=== PATIENT | female | born 1975 | race Caucasian/White ===

== ENCOUNTER 2023-06-28 11:30 | Inpatient (IN) | payer SELFPAY ==
[2023-06-28] VITALS (35 sets, daily range): BP systolic 130–170; BP diastolic 85–120; PULSE 0–132; TEMP 36.7–37.1; O2SAT 94–98; BMI 36.0; BMI 35.9
--- NOTE | 2023-06-28 | CONS_ITS ---
CONSULTATION DATE: 06/28/2023 HISTORY OF PRESENT ILLNESS: Patient is a 48-year-old female with no significant past cardiac history, who presented to [facility] with complaints of productive cough and shortness of breath. Patient states that she has been dealing with an upper respiratory tract infection for approximately five weeks, and although she had begun to improve, she noticed some worsening over the past 24 hours. Patient states that she had been coughing up green sputum and, as of yesterday, her shortness of breath became noticeably worse. She reported some lower extremity edema as well. She denied any anginal chest pain. She denies any orthopnea or paroxysmal nocturnal dyspnea. She does have some positional pain in her back, which is worse when she lays on her right side. Again, patient denies any anginal chest pain. Patient denies any previous cardiac history. She denies any history of hypertension, hyperlipidemia, diabetes, CAD, CVA or VA. She states that prior to the past five weeks, she was fairly active and had no activity limiting symptoms. She denies any significant family history of premature coronary artery disease. Upon admission, patient was noted to have cardiac enlargement on chest x-ray, in addition to mall bilateral pleural effusions. She is being treated for community acquired pneumonia. Cardiology was asked to evaluate patient for presumptive heart failure. CARDIOLOGY REVIEW OF SYSTEMS: Ten point ROS was performed and was negative, unless otherwise specified in HPI. PAST MEDICAL HISTORY: Gestational hypertension. SURGICAL HISTORY: LASIK surgery of both eyes. SOCIAL HISTORY: Patient denies any tobacco abuse. No recreational drug use. No significant alcohol consumption. FAMILY HISTORY: Noncontributory. HOME MEDICATIONS: None. PHYSICAL EXAMINATION: Vital Signs: Blood pressure 143/120, pulse 102, respiratory rate 34, temperature 98.3, O2 sat 95% on room air.\ Constitutional: Well developed, well nourished, no acute distress. HEENT: Normocephalic, atraumatic. Eyes: PERRLA. Extraocular movements intact. Neck: No significant JVD. Cardiovascular: Tachycardic, normal rhythm. No rubs, gallops or murmurs. Lungs: Bibasilar crackles. No respiratory distress. Abdomen: Soft, non- tender, non-distended. Skin: Warm, dry, intact. Extremities: Patient has bilateral lower extremity edema. No cyanosis or clubbing noted. Musculoskeletal: Grossly normal strength in extremities. Neurologic: Alert and oriented x3. No gross focal neurological deficits. Psychiatric: Affect normal. Judgment normal. Mood normal. STUDIES: EKG ? Sinus tachycardia, inferior infarct, age indeterminate, possible left atrial enlargement. ASSESSMENT: 1. Community acquired pneumonia. 2. Sinus tachycardia. 3. Heart failure with unknown ejection fraction. 4. Hypertension. PLAN: 1. Treatment of underlying pneumonia as per primary team. 2. Sinus tachycardia is likely reactive to underlying infectious process. Treatment of underlying infection is recommended. 3. Continue with IV Lasix 40 mg daily. Monitor ins/outs. Standing daily weights. 4. Recommend obtaining echocardiograph to assess LVEF, regional wall motion, valvular function. 5. Would recommend serial troponin x3. 6. Would recommend initiating anti-hypertensive regimen give elevated blood pressure. 7. Further recommendations to follow echocardiogram. 8. Remainder of management as per primary team. Thank you for allowing us to participate in the care of this patient. Please do not hesitate to contact [facility] with any questions/concerns. TOMY
--- NOTE | 2023-06-28 11:56 | XR_ITS ---
The [address] [address] Patient Name: LEANNE GLEASON MRN: [id number] date: 1975 Sex: F Assigned Patient Location: ER Current Patient Location: ER Accession/Order Number: [id number] Exam Date: 06/28/2023 12:19 Report Date: 06/28/2023 12:37 At the request of: SHANTELL ELY Procedure: XR chest 2V EXAM: Chest x-ray HISTORY: . SOB . COMPARISON: None TECHNIQUE: Frontal and lateral chest FINDINGS: Heart is mildly enlarged. There is prominence of the vascularity and interstitial markings. Small bilateral effusions are noted. Bibasilar atelectasis and or infiltrates are noted. No consolidation is noted. XR/XR chest 2V IMPRESSION: 1. Cardiac enlargement. 2. Prominence of the bronchovascular markings. Findings could be due to an interstitial pneumonitis or early failure. 3. Bibasilar atelectasis versus early infiltrates 4. Small bilateral effusions. Electronically authenticated by: FRANK HONG Date: 06/28/2023 12:37
[2023-06-28 12:05] LABS: Basophils Percent Auto 0.4 % (0.2-2.0); Eosinophils Absolute Auto 0.1 10^3/uL (0.0-0.7); Eosinophils Percent Auto 1.5 % (0.9-7.0); Hematocrit 39.1 % (36.0-48.0); Hemoglobin 12.5 g/dL (12.0-16.0); Immature Granulocytes Abs Auto 0.03 10^3/uL (0.00-0.03); Immature Granulocytes Pct Auto 0.3 % (0.0-0.5); Lymphocytes Percent Auto 21.2 % (20.5-60.0); Mean Corpuscular Hemoglobin 28.3 pg (26.7-34.0); Mean Corpuscular Volume 88.5 fL (81.0-99.0); Mean Platelet Volume 11.2 fL (9.5-13.5); Monocytes Absolute Auto 0.8 10^3/uL (0.3-0.8); Monocytes Percent Auto 8.2 % (1.7-12.0); Neutrophils Absolute Auto 6.4 10^3/uL (1.4-6.5); Neutrophils Percent Auto 68.4 % (43.0-75.0); Platelet Count 271 10^3/uL (150-450); Red Blood Count 4.42 10^6/uL (4.20-5.40); Red Cell Distribution Width 14.1 % (11.0-15.0); White Blood Count 9.4 10^3/uL (4.0-11.0)
[2023-06-28 12:25] LABS: Influenza Virus A Antigen Negative; Influenza Virus B Antigen Negative
[2023-06-28 12:26] LABS: Internal Control Within Normal Limits; SARS-CoV-2 Ag NEGATIVE (NEGATIVE)
[2023-06-28 12:27] LABS: Alanine Aminotransferase 94 U/L (14-59); Albumin Globulin Ratio 1.1; Albumin Level 3.4 g/dL (3.4-5.0); Alkaline Phosphatase 82 U/L (46-116); Anion Gap 12.8; Aspartate Amino Transferase 46 U/L (15-37); BUN Creatinine Ratio 12.5; Bilirubin Total 0.5 mg/dL (0.2-1.0); Calcium 9.3 mg/dL (8.5-10.1); Chloride 103 mmol/L (98-107); Estimated GFR (African America >60 (>=60); Estimated GFR (Non-African Ame >60 (>=60); Globulin 3.2 g/dL; Glucose 107 mg/dL (74-106); Potassium 3.8 mmol/L (3.5-5.1); Sodium 137 mmol/L (136-145); Total Protein 6.6 g/dL (6.4-8.2); Troponin I High Sensitivity <4.0 pg/mL (4.0-51.3)
--- NOTE | 2023-06-28 12:31 | ED.SOB1 ---
HPI - SOB/Dyspnea General Chief Complaint: Shortness of Breath/Dyspnea Stated Complaint: SOB, COUGH Time Seen by Provider: 06/28/23 11:56 Source: patient Mode of arrival: walk-in Limitations: no limitations History of Present Illness HPI Narrative: Patient presents ED complaining of cough and shortness of breath. She said she has had a cough for about 5 weeks. She said it was kind of getting better recently and then the past few days has gotten a lot worse. She was originally coughing up green sputum which kind of got better and now it is worse and green again. She did not see her primary doctor during this time because she thought it was just a cough and it was may be getting better. Now she complains of some pain with breathing and pain with laying back specifically in the right lung area. She is tachycardic upon arrival not hypoxic and in no acute respiratory distress but she is speaking in shorter sentences and she said she gets winded easily. Denies any leg pain or swelling. No nausea or vomiting. She denies chest pain Other than the pain in the right side.No sore throat no ear pain. Related Data Home oxygen amount: none Allergies Allergy/AdvReac Type Severity Reaction Status Date / Time No Known Drug Allergies Allergy Verified 06/28/23 11:42 Review of Systems ROS Status of ROS 10 or more systems reviewed and unremarkable except as noted in history and below Exam Narrative Exam Narrative: Time Seen: [] Vital Signs: [Per nurse's notes.] General: [Alert] Tachycardia, mild distress Skin: [Warm, dry, no rash.] Head: [Normocephalic, atraumatic.] Neck: [Supple, trachea midline.] Eye: [Pupils are equal, round and reactive to light, extraocular movements are intact, normal conjunctiva.] Ears, nose, mouth and throat: oral mucosa moist. Cardiovascular: [Tachycardia, no murmur.] Respiratory: [Diminished breath sounds right lung respirations are non-labored, breath sounds are equal.] Chest wall: [No tenderness, no deformity.] Gastrointestinal: [Soft, nontender, non distended, normal bowel sounds.] MSK: 5 out of 5 muscle strength x 4 extremities no calf pain or edema Lymphatics: [No lymphadenopathy.] Psychiatric: [Cooperative, appropriate mood & affect.] Neurological: [Alert and oriented to person, place, time, and situation, no focal neurological deficit observed.] Constitutional Vital Signs, click to edit/add: Last Vital Signs Temp 98.1 F 06/28/23 11:37 Pulse 107 H 06/28/23 11:37 Resp 20 06/28/23 11:37 BP 145/90 H 06/28/23 11:37 Pulse Ox 98 06/28/23 11:37 O2 Del Method Room Air 06/28/23 11:37 Course Vital Signs Vital signs: Vital Signs Temperature 98.1 F 06/28/23 11:37 Pulse Rate 107 H 06/28/23 11:37 Respiratory Rate 20 06/28/23 11:37 Blood Pressure 145/90 H 06/28/23 11:37 Pulse Oximetry 98 06/28/23 11:37 Oxygen Delivery Method Room Air 06/28/23 11:37 Temperature 98.1 F 06/28/23 11:37 Pulse Rate 107 H 06/28/23 11:37 Respiratory Rate 20 06/28/23 11:37 Blood Pressure 145/90 H 06/28/23 11:37 Pulse Oximetry 98 06/28/23 11:37 Oxygen Delivery Method Room Air 06/28/23 11:37 MDM - SOB/Dyspnea MDM Narrative Medical decision making narrative: Patient is labs showed an elevated D-dimer. I ordered a CT angio which shows pneumonia versus heart failure. Patient's BNP is elevated. She was given IV antibiotics here for potential pneumonia she was also given IV Lasix here. I called and spoke to Dr. Dunham who will admit the patient for diuresis and cardiac echo. Also cardiology evaluation as needed. Patient is comfortable with care plan for admission. She is stable in ED but would benefit from inpatient stepdown admission. Differential Diagnosis Differential diagnosis: Likely congestive heart failure and community acquired pneumonia Medical Records Attestation: I reviewed the patient's medical records. Lab Data Attestation: I reviewed the patient's lab results. Labs: Lab Results 06/28/23 06/28/23 06/28/23 Range/Units 11:57 12:00 13:16 WBC 9.4 (4.0-11.0) 10^3/uL RBC 4.42 (4.20-5.40) 10^6/uL Hgb 12.5 (12.0-16.0) g/dL Hct 39.1 (36.0-48.0) % MCV 88.5 (81.0-99.0) fL MCH 28.3 (26.7-34.0) pg MCHC 32.0 (29.9-35.2) g/dL RDW 14.1 (11.0-15.0) % Plt Count 271 (150-450) 10^3/uL MPV 11.2 (9.5-13.5) fL Neut % (Auto) 68.4 (43.0-75.0) % Lymph % (Auto) 21.2 (20.5-60.0) % [place] % (Auto) 8.2 (1.7-12.0) % Eos % (Auto) 1.5 (0.9-7.0) % Baso % (Auto) 0.4 (0.2-2.0) % Neut # (Auto) 6.4 (1.4-6.5) 10^3/uL Lymph # (Auto) 2.0 (1.2-3.8) 10^3/uL [place] # (Auto) 0.8 (0.3-0.8) 10^3/uL Eos # (Auto) 0.1 (0.0-0.7) 10^3/uL Baso # (Auto) 0.0 (0.0-0.1) 10^3/uL Abs Immat Gran (auto) 0.03 (0.00-0.03) 10^3/uL Imm/Tot Granulo (auto) 0.3 (0.0-0.5) % D-Dimer 0.65 H* (<=0.59) mg/L FEU Sodium 137 (136-145) mmol/L Potassium 3.8 (3.5-5.1) mmol/L Chloride 103 (98-107) mmol/L Carbon Dioxide 25.0 (21.0-32.0) mmol/L Anion Gap 12.8 BUN 11.0 (7.0-18.0) mg/dL Creatinine 0.88 (0.55-1.02) mg/dL Est GFR ( Amer) >60 (>=60) Est GFR (Non-Af Amer) >60 (>=60) BUN/Creatinine Ratio 12.5 Glucose 107 H (74-106) mg/dL Lactate 0.7 (0.4-2.0) mmol/L Calcium 9.3 (8.5-10.1) mg/dL Total Bilirubin 0.5 (0.2-1.0) mg/dL AST 46 H (15-37) U/L ALT 94 H (14-59) U/L Alkaline Phosphatase 82 (46-116) U/L Troponin I High Sens <4.0 L (4.0-51.3) pg/mL NT-Pro-B Natriuret Pep 2904.0 H* (<=900.0) pg/mL Total Protein 6.6 (6.4-8.2) g/dL Albumin 3.4 (3.4-5.0) g/dL Globulin 3.2 g/dL Albumin/Globulin Ratio 1.1 Influenza Type A Ag Negative Influenza Type B Ag Negative SARS-CoV-2 Ag (CV2AG) Negative (NEGATIVE) Imaging Data Chest x-ray: Radiologist's impression: ITS Impressions Chest X-Ray 06/28/23 11:56 IMPRESSION: 1. Cardiac enlargement. 2. Prominence of the bronchovascular markings. Findings could be due to an interstitial pneumonitis or early failure. 3. Bibasilar atelectasis versus early infiltrates 4. Small bilateral effusions. Electronically authenticated by: FRANK HONG Date: 06/28/2023 12:37 Chest CTA 06/28/23 12:58 IMPRESSION: No central pulmonary thromboembolic disease Groundglass attenuation the lungs and pleural effusions with left heart enlargement. Consider congestive heart failure Electronically authenticated by: FRANK MAIN Date: 06/28/2023 14:01 ECG Data Attestation: I personally reviewed and interpreted this ECG as follows: Interpretation: EKG INTERPRETATION Time: []1147 Rate: []109 Rhythm: _ []Sinus tachycardia ST segments: _ [] T waves: _ [] Ectopy: _ [] P wave/NH interval: _ [] QRS interval: _ [] QT interval: _ [] Comparison: _ [] Comparison EKG date: [] Performed by: [self]Left bundle branch block Critical Care Time Critical Care Time Critical Care Time: Yes Total Critical Care Time: 85 Attestation: Cardiac arrhythmia, acute congestive heart failure, pulmonary and cardiac support Discharge Plan Discharge Chief Complaint: Shortness of Breath/Dyspnea Clinical Impression: Congestive heart failure, Community acquired pneumonia Patient Disposition: Admitted As Inpatient Time of Disposition Decision: 14:56 Condition: Fair Print Language: [place] Referrals: Jailyn Quiroz MD [Primary Care Provider] - 1 week
--- NOTE | 2023-06-28 12:58 | CT_ITS ---
[address] [address] Patient Name: LEANNE GLEASON MRN: [id number] date: 1975 Sex: F Assigned Patient Location: ER Current Patient Location: ER Accession/Order Number: [id number] Exam Date: 06/28/2023 13:36 Report Date: 06/28/2023 14:01 At the request of: SHANTELL ELY Procedure: CT angio chest EXAMINATION: CT angio chest HISTORY: elevated dimer COMPARISON: No relevant comparison available. TECHNIQUE: Multi-planar CT images were created with IV contrast. Axial, Coronal, and Sagittal images. Dose reduction techniques were achieved by using automated exposure control and/or adjustment of mA and/or kV according to patient size and/or use of iterative reconstruction technique. FINDINGS: LUNGS: Mild to moderate groundglass attenuation scattered throughout the lungs. Few focal areas of consolidation are noted the largest in the right lower lobe measures 2.5 cm, axial image 73 PLEURA: 6.5 cm right and 1.1 cm left pleural effusions VASCULATURE: Normal postcontrast opacification of the central pulmonary arterial tree with no filling defect to suggest a pulmonary embolus UBALDO: No mass or adenopathy. MEDIASTINUM: No mass or adenopathy. CARDIAC: Left heart enlargement. No pericardial effusion. No significant coronary atherosclerosis AORTA: No aneurysm or dissection. CHEST WALL: No mass or axillary adenopathy. BONES: No bone lesion or fracture. LIMITED ABDOMEN: No suspicious findings. Limited images of the upper abdomen. OTHER: Negative. CT/CT angio chest IMPRESSION: No central pulmonary thromboembolic disease Groundglass attenuation the lungs and pleural effusions with left heart enlargement. Consider congestive heart failure Electronically authenticated by: FRANK MAIN Date: 06/28/2023 14:01
[2023-06-28 12:59] LABS: D Dimer 0.65 mg/L FEU (<=0.59)
[2023-06-28] MEDS: 0.9 % SODIUM CHLORIDE 1,000 ML 1000 ML IV (13:08)
[2023-06-28] MEDS: CEFTRIAXONE 1,000 MG in 0.9 % SODIUM CHLORIDE 50 ML 100 MG IV (13:50)
[2023-06-28 14:17] LABS: Lactate/Lactic Acid 0.7 mmol/L (0.4-2.0)
[2023-06-28] MEDS: AZITHROMYCIN 500 MG in 0.9 % SODIUM CHLORIDE 250 ML 250 MG IV (14:19)
--- NOTE | 2023-06-28 15:21 | CA_ITS ---
Patient Name: LEANNE GLEASON MR#: [id number] : 1975 Exam Date: 06/29/2023 Ordering Doctor: MAGALY PRUITT ECHOCARDIOGRAM REPORT PROCEDURE: CA ECHO DOPPLER COMPLETE INDICATIONS: SOB/new onset CHF, elevated BNP COMPARISON: None. DESCRIPTION: COMPLETE ECHOCARDIOGRAM Real-time transthoracic echocardiography with 2D, M-mode, spectral and color flow Doppler performed. QUALITY: Technical quality was good. 63 , 203#, BSA 1.95 m2, BP 136/88 LEFT VENTRICLE: Mild dilatation. Normal left ventricular wall thickness. Calculated left ventricular ejection fraction is 26% LV EF: Global left ventricular systolic function is severely reduced; visually estimated ejection fraction is 20 to 25%. Global hypokinesis. DIASTOLIC: Grade II diastolic dysfunction. ATRIAL SEPTUM: Inadequately seen. LEFT ATRIUM: Severe dilatation. The interatrial septum bows to the right suggesting elevated left atrial filling pressures. RIGHT ATRIUM: Normal chamber size. RIGHT VENTRICLE: Normal chamber size. Normal right ventricular systolic function. TRICUSPID VALVE: Normal mobility and thickness. Mild regurgitation. Doppler studies reveal mildly (35-45) elevated right sided pressures. RVSP 40 mmHg MITRAL VALVE: Normal mobility and thickness. No evidence of mitral valve stenosis. Mild mitral annular calcification. Moderate to severe mitral regurgitation. AORTIC VALVE: Normal trileaflet appearance. No visible sclerosis. Normal leaflet mobility. No evidence of aortic valve stenosis. No aortic regurgitation. AORTIC ROOT: Normal diameter and appearance. Ascending aorta is normal in size. PULMONIC VALVE: Normal thickness and mobility. No stenosis. Trivial regurgitation. The pulmonary artery appears dilated. PERICARDIUM: No evidence of pericardial effusion. IVC: Collapses with inspirations. IVC is normal in size. CONCLUSION 1. Global left ventricular systolic function is severely reduced; visually estimated ejection fraction is 20 to 25% 2. Normal right ventricular size and systolic function 3. The left atrium is severely dilated 4. Grade 2 diastolic dysfunction 5. Mild tricuspid regurgitation; mildly elevated right ventricular systolic pressure 6. Moderate to severe mitral regurgitation 7. The pulmonary artery appears dilated Adult Echocardiography Procedure Report Left Ventricle LVEDD (3.7 - 5.6 cm): 5.06 cm LVESD (2.2 - 4.0 cm): 4.82 cm LVIVS thickness (0.6 - 1.2 cm): 0.92 cm LVPW thickness (0.5 - 1.0 cm): 1.05 cm e': 0.06 m/s E - e': 15.48 LVOT Max Gradient: 3.00 mm[Hg] LVOT Area (cm2): 0.87 m/s Peak Velocity (LVOT): 0.87 m/s Mean Velocity (LVOT): 0.62 m/s LVOT Diameter 2.00 cm Left Atrium LA Volume Index (2D A2C): 53.64 ml/m2 Left Atrium Systolic Dimension: 3.59 cm Mitral Valve MV E to A Ratio: 1.12 Mitral Valve A-Wave Peak Velocity: 0.85 m/s Mitral Valve E-Wave Peak Velocity: 0.95 m/s Right Ventricle Aorta AO Root Diam: 2.93 cm Ascending Ao Diam: 3.36 cm Aortic Valve AoV Area (Peak Agustín): 1.77 cm2, 1.83 cm2 AoV Area (VTI): 1.74 cm2, 1.74 cm2 Peak Velocity(Antegrade Flow): 1.49 m/s, 1.54 m/s Peak Gradient(Antegrade Flow): 8.93 mm[Hg], 9.53 mm[Hg] Mean Velocity(Antegrade Flow): 1.10 m/s, 1.15 m/s Mean Gradient(Antegrade Flow): 5.33 mm[Hg], 5.81 mm[Hg] Velocity Time Integral: 24.67 cm, 22.89 cm Tricuspid Valve Peak Velocity (Regurgitant Flow): 3.02 m/s Pulmonic Valve Mean Gradient: 1.25 mm[Hg], 1.06 mm[Hg], 1.93 mm[Hg] Mean Velocity: 0.52 m/s, 0.48 m/s, 0.65 m/s Peak Gradient: 2.38 mm[Hg], 1.71 mm[Hg], 3.44 mm[Hg] Right Atrium Right Atrium Systolic Pressure: 46.57 ml, 46.57 ml Dictated by: Garima Payne M.D. on 06/29/2023 at 10:56 Approved by: Garima Payne M.D. on 06/29/2023 at 11:02
--- NOTE | 2023-06-28 15:25 | ECG_ITS ---
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
[2023-06-28] MEDS: FUROSEMIDE 40 MG/4 ML VIAL IVP ×2 (15:43→20:55)
[2023-06-28 16:29] LABS: C Reactive Protein <0.50 mg/dL (<=0.50)
[2023-06-28 16:38] LABS: Troponin I High Sensitivity 4.9 pg/mL (4.0-51.3)
[2023-06-28 17:05] LABS: Erythrocyte Sedimentation Rate 18 mm/hr (<=20)
--- NOTE | 2023-06-28 17:36 | P.HP_ITS ---
<Statement entered by Tenzin Dunham MD - 06/30/23 06:49> This documentation has been reviewed and approved. Patient seen and evaluated in the intensive care unit, agree with input and findings provided by nurse practitioners H&P. Additional findings: Elevated liver function test-possibly related to passive congestion from the acute combined heart failure. Check an echocardiogram HPI H&P: HPI History of Present Illness Chief complaint: SOB, COUGH, CHF, Community Acquired Pneumonia Narrative: 06/28/23 6157 This is a 48-year-old female patient with benign past medical history except for gestational hypertension that has resolved, who presented to the ED today complaining of severe shortness of breath and cough. The patient reports onset of a cough about 5 weeks ago productive of green sputum. She denies any other URI symptoms and denies fever. She has been mildly short of breath for the last 4 weeks but became abruptly more short of breath with minimal activity starting last night. She also notes her shortness of breath is worse when lying down and that she is experiencing right lower lobe pain with coughing. She has noticed decreased appetite but had no fevers throughout. She presented to the ED for further evaluation. The patient was mildly hypertensive (145/90) and tachycardic (107) on arrival to the ED. Her labs including cardiac enzymes were mostly unremarkable except for an elevated D-dimer (0.65) and BNP (2904). A chest x-ray revealed cardiac enlargement, small bilateral pleural effusions and prominence of the bronchovascular markings. A CTA of the chest was ordered and PE was ruled out, but groundglass attenuation was noted and left cardiac enlargement consistent with CHF. The patient was treated with IVP Lasix and admitted to the ICU stepdown unit for new onset CHF. At the time of my exam the patient is resting in bed in the ICU. She is short of breath with minimal activity such as walking to the bathroom and prolonged conversation. She denies any cardiac history of any kind and notes her gestational hypertension had completely resolved after the of her children. She denies chest pain other than right lower lobe pleuritic pain with coughing. We will obtain an EKG and serial cardiac enzymes to continue to monitor her cardiac function as well as a 2D Echo. We will also obtain a CRP and ESR to assess for possible myocarditis and a TSH. Cardiology has been consulted for new onset CHF of unclear etiology in a relatively young and healthy patient. Opioid HPI Opioid Management Most Recent Opioid Data: Last Pain Assessment 06/28/23 19:00 Last ORT Total Score 0 06/28/23 16:13 Last ORT Risk Category Low Risk 06/28/23 16:13 Review of Systems ROS Status of ROS 10 or more systems reviewed and unremark able except as noted in history and below PFSH PFS Medical History (Updated 06/28/23 @ 17:49 by Irma Patel NP) Gestational hypertension ?O13.9 - Gestational [-induced] hypertension without significant proteinuria, unspecified trimester (ICD-10) FH: cholecystectomy ?Z83.79 - Family history of other diseases of the digestive system (ICD-10) Post hysterectomy menopause ?E89.40 - Asymptomatic postprocedural ovarian failure (ICD-10) ?Z90.710 - Acquired absence of both cervix and uterus (ICD-10) Complication of section wound ?O90.9 - Complication of the puerperium, unspecified (ICD-10) Plantar fasciitis ?M72.2 - Plantar fascial fibromatosis (ICD-10) Surgical History (Updated 06/28/23 @ 16:43 by Dorothy Watts) Status post LASIK surgery of both eyes ?Z98.890 - Other specified postprocedural states (ICD-10) Social History (Updated 06/28/23 @ 16:44 by Dorothy Watts) Smoking status: Never smoker Non-prescribed substance use: denies use Previous occupational history: day care provider Known occupational exposures/hazards: No Meds Home Medications and Allergies Home Medications ?Medication ?Instructions ?Recorded ?Confirmed ?Type No Known Home Medications 06/28/23 06/28/23 History Allergies Allergy/AdvReac Type Severity Reaction Status Date / Time No Known Drug Allergies Allergy Verified 06/28/23 11:42 Exam Constitutional Vital Signs, click to edit/add: Last Vital Signs Temp 98.3 F 06/28/23 16:34 Pulse 107 H 06/28/23 16:13 Resp 34 H 06/28/23 15:48 BP 143/120 H 06/28/23 16:34 Pulse Ox 95 06/28/23 16:34 O2 Del Method Room Air 06/28/23 16:13 Common normals: no apparent distress, oriented x3, alert and well nourished General appearance: cooperative Orientation/consciousness: Yes awake HENMT Common normals: normocephalic, head/scalp atraumatic, hearing grossly normal bilaterally, external nose normal and moist oral mucous membranes Eye Common normals: PERRL, EOMs intact bilaterally, conjunctivae normal and no scleral icterus Alignment: alignment normal Eyelid: eyelids normal Neck & C-Spine Common normals: full ROM, supple and no JVD Chest Common normals: inspection of chest normal Chest: symmetrical chest wall rise Respiratory Common normals: normal respiratory effort, no retractions and no use of accessory muscles Effort & inspection: able to speak in complete sentences Auscultation: rales (BLL, L > R) Cardio Common normals: no JVD, regular rate, regular rhythm, S1 normal heart sound, S2 normal heart sound, no gallops, no clicks, no rub and peripheral pulses 2+ throughout Heart sounds: murmur (HSM 2/6) GI Common normals: Normal to inspection, nondistended, normoactive bowel sounds present, soft to palpation, non-tender, no hepatosplenomegaly, no masses and no bruits Bladder/kidney exam: bladder normal to palpation Back & Pelvis Common normals: thoracic and lumbar spine normal to inspection Extremity Common normals: normal capillary refill General: normal exam except as noted and edema (Tr BLE, knees to insteps); no clubbing and no cyanosis Neuro [place] Coma Scale: GCS not evaluated Common normals: CN's II-XII intact bilaterally, moves all extremities, no focal motor deficits and no sensory deficits noted Speech: speech normal Motor exam: strength 5/5 throughout Psych Common normals: mental status grossly normal, thought process normal, affect normal and activity/motor behavior normal Results Labs Labs: Short CBC 06/28/23 Range/Units 11:57 WBC 9.4 (4.0-11.0) 10^3/uL Hgb 12.5 (12.0-16.0) g/dL Hct 39.1 (36.0-48.0) % Plt Count 271 (150-450) 10^3/uL BMP 06/28/23 11:57 Sodium 137 Potassium 3.8 Chloride 103 Carbon Dioxide 25.0 BUN 11.0 Creatinine 0.88 Glucose 107 H Calcium 9.3 Liver Function 06/28/23 Range/Units 11:57 Total Bilirubin 0.5 (0.2-1.0) mg/dL AST 46 H (15-37) U/L ALT 94 H (14-59) U/L Alkaline Phosphatase 82 (46-116) U/L Albumin 3.4 (3.4-5.0) g/dL Pulse Oximetry Attestation: I have reviewed the pertinent pulse oximetry results. Imaging Chest x-ray: Attestation: I have reviewed the pertinent imaging results. Radiologist's impression: IMPRESSION: 1. Cardiac enlargement. 2. Prominence of the bronchovascular markings. Findings could be due to an interstitial pneumonitis or early failure. 3. Bibasilar atelectasis versus early infiltrates 4. Small bilateral effusions. CT scan - chest: Attestation: I have reviewed the pertinent imaging results. Radiologist's impression: IMPRESSION: No central pulmonary thromboembolic disease Groundglass attenuation the lungs and pleural effusions with left heart enlargement. Consider congestive heart failure Assessment and Plan Assessment and Plan (1) Congestive heart failure: Assessment and Plan: Acute * Adm inpatient * New onset CHF of unclear etiology * No previous cardiac history or medications * EKG now - ST w/ BBB, anteroseptal PR of indeterminate age, possible L atrial enlargement * CXR and CTA both confirm enlarged L heart, small bilat pleural effusions and ground glass attenuation suggestive of CHF * Elevated BNP (2904) in ED * Lasix 40 mg IVP BID * Strict I&O, daily weights * 2D Echo - unable to obtain until morning * Cardiology consult - we appreciate their assistance w/ this pt's care * Add on ESR/CRP to evaluate for possible myocarditis * Daily BNP (2) Sinus tachycardia: Assessment and Plan: Acute * HR 105- 135 since arrival * No electrolyte disturbances as etiology * PE r/o w/ neg CTA chest * Anxiety may be contributing to tachy rhythm * Start low dose metoprolol tartrate BID - avoid CCB in pt w/ CHF * PRN IVP Lopressor for HR sustained above 120 despite PO metoprolol * Tele monitoring
--- NOTE | 2023-06-28 19:15 | ECG_ITS ---
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
[2023-06-28 19:26] LABS: Free T3 2.42 pg/mL (2.18-3.98); Magnesium 2.1 mg/dL (1.8-2.4); Thyroid Stimulating Hormone 11.277 uIU/mL (0.358-3.740)
[2023-06-28 19:47] LABS: Troponin I High Sensitivity <4.0 pg/mL (4.0-51.3)
[2023-06-28] MEDS: ENOXAPARIN SODIUM 40 MG/0.4 ML SYRINGE SUBQ (20:55)
[2023-06-28] MEDS: METOPROLOL TARTRATE 25 MG TABLET 12.5 MG PO (20:56)
[2023-06-29] VITALS (74 sets, daily range): BP systolic 129–159; BP diastolic 86–109; PULSE 73–107; TEMP 36.6–36.9; O2SAT 89–97
[2023-06-29 04:53] LABS: Basophils Percent Auto 0.4 % (0.2-2.0); Eosinophils Absolute Auto 0.1 10^3/uL (0.0-0.7); Hematocrit 40.8 % (36.0-48.0); Hemoglobin 12.8 g/dL (12.0-16.0); Immature Granulocytes Abs Auto 0.03 10^3/uL (0.00-0.03); Immature Granulocytes Pct Auto 0.3 % (0.0-0.5); Lymphocytes Percent Auto 20.5 % (20.5-60.0); Mean Corpuscular HGB Conc 31.4 g/dL (29.9-35.2); Mean Corpuscular Hemoglobin 27.6 pg (26.7-34.0); Mean Corpuscular Volume 87.9 fL (81.0-99.0); Mean Platelet Volume 11.8 fL (9.5-13.5); Monocytes Absolute Auto 0.9 10^3/uL (0.3-0.8); Monocytes Percent Auto 9.1 % (1.7-12.0); Neutrophils Absolute Auto 6.7 10^3/uL (1.4-6.5); Neutrophils Percent Auto 68.7 % (43.0-75.0); Platelet Count 267 10^3/uL (150-450); Red Blood Count 4.64 10^6/uL (4.20-5.40); Red Cell Distribution Width 14.5 % (11.0-15.0); White Blood Count 9.7 10^3/uL (4.0-11.0)
[2023-06-29 05:14] LABS: Alanine Aminotransferase 87 U/L (14-59); Albumin Globulin Ratio 1.1; Albumin Level 3.4 g/dL (3.4-5.0); Alkaline Phosphatase 80 U/L (46-116); Anion Gap 13.3; Aspartate Amino Transferase 40 U/L (15-37); Bilirubin Total 0.6 mg/dL (0.2-1.0); Calcium 9.4 mg/dL (8.5-10.1); Carbon Dioxide 26.4 mmol/L (21.0-32.0); Chloride 101 mmol/L (98-107); Estimated GFR (African America >60 (>=60); Estimated GFR (Non-African Ame >60 (>=60); Globulin 3.2 g/dL; Glucose 106 mg/dL (74-106); Potassium 3.7 mmol/L (3.5-5.1); Sodium 137 mmol/L (136-145); Total Protein 6.6 g/dL (6.4-8.2)
[2023-06-29] MEDS: FUROSEMIDE 40 MG/4 ML VIAL IVP (08:16)
[2023-06-29] MEDS: METOPROLOL TARTRATE 25 MG TABLET 12.5 MG PO (08:16)
--- NOTE | 2023-06-29 08:22 | CM.NOTE ---
Rounds made with Dr. Dunham, discussed with pt about cardiac echo today. If cardiac echo normal may discharge to home this afternoon.
--- NOTE | 2023-06-29 08:23 | P.PN_ITS ---
Progress Note: Subjective Subjective Interval history: Patient feels better with her breathing today. Still somewhat short of breath and has also not been in and ambulating yet this morning respiratory rate on vital signs is improved though Exam Constitutional Vital Signs, click to edit/add: Last Vital Signs Temp 98 F 06/29/23 07:53 Pulse 96 H 06/29/23 07:53 Resp 19 06/29/23 07:50 BP 154/105 H 06/29/23 07:49 Pulse Ox 97 06/29/23 07:48 O2 Del Method Room Air 06/29/23 07:53 Common normals: no apparent distress Chest Common normals: inspection of chest normal Respiratory Common normals: normal respiratory effort and no retractions Auscultation: rales (Bases but improved) Cardio Common normals: regular rate Common normals: no CVA tenderness Extremity Common normals: normal to inspection Progress Note: Objective Labs Labs: Short CBC 06/28/23 06/29/23 Range/Units 11:57 04:04 WBC 9.4 9.7 (4.0-11.0) 10^3/uL Hgb 12.5 12.8 (12.0-16.0) g/dL Hct 39.1 40.8 (36.0-48.0) % Plt Count 271 267 (150-450) 10^3/uL BMP 06/28/23 06/29/23 11:57 04:04 Sodium 137 137 Potassium 3.8 3.7 Chloride 103 101 Carbon Dioxide 25.0 26.4 BUN 11.0 10.0 Creatinine 0.88 0.77 Glucose 107 H 106 Calcium 9.3 9.4 Liver Function 06/28/23 06/29/23 Range/Units 11:57 04:04 Total Bilirubin 0.5 0.6 (0.2-1.0) mg/dL AST 46 H 40 H (15-37) U/L ALT 94 H 87 H (14-59) U/L Alkaline Phosphatase 82 80 (46-116) U/L Albumin 3.4 3.4 (3.4-5.0) g/dL Progress Note: A&P Assessment and Plan (1) Congestive heart failure: (2) Sinus tachycardia: Plan (1) Congestive heart failure: Assessment and Plan: Cardiogram is still pending. Try to get the calculated ejection fraction as early as possible today. Her BNP is higher. But she is going to doses of the Lasix so far with good diuresis of 4 L Notes with him I just was not sure with the protest if we are staying away Tachycardia Acute-so far better this morning. Hypothyroidism-given IV dose last night, will follow as an outpatient. Possibly related to the heart failure Elevated liver function test-improved, would follow as an outpatient Admission status: Patient with new onset of acute combined congestive heart failure. Place patient inpatient status in the intensive care unit. Likely 2 to 3-day hospital stay. Inpatient status.
--- NOTE | 2023-06-29 09:13 | CM.NOTE ---
Verified self pay status. Referral to [employer].
--- NOTE | 2023-06-29 17:31 | PC.NURSE ---
bedside report given to [facility]. pt taken to exit via stretcher, family at bedside with belongings. report called to adeola at [facility] [phone].
--- NOTE | 2023-07-07 07:49 | P.DS_ITS ---
DS: Providers Provider Date of admission: 06/28/23 15:57 Primary care physician: Jailyn Quiroz MD Consults: 06/28/23 15:21 Consult to Cardiology Routine Reason for consultation: New onset CHF Has provider been notified: No DS: Diagnosis Discharge Diagnosis (1) Congestive heart failure: (2) Sinus tachycardia: Plan Congestive heart failure: With reduced ejection fraction Tachycardia: Stable at the time of discharge Hypothyroidism-follow as an outpatient Elevated liver function test-improving at the time of discharge Community-acquired pneumonia-continue with current treatment plan at outside facility. Admission status: Patient with new onset of acute combined congestive heart failure. Place patient inpatient status in the intensive care unit. Likely 2 to 3-day hospital stay. Inpatient status. ? DS: Summary Hospital Course Hospital Course: Patient presented to the emergency room with increasing shortness of breath. Found to have acute combined congestive heart failure. Diuresed with Lasix. Echocardiogram the following morning did show a reduced ejection fraction and her BNP was higher. Arrangements were made for transportation and transfer to [facility] for cardiac catheterization. Patient was improving and stable at the time of discharge. Follow-up with your PCP at discharge from outside facility. Medications see list, likely ingested at tertiary care facility. Time Spent with Patient Time attestation: Total time spent providing and/or coordinating discharge services: Time spent: greater than 30 minutes Exam Constitutional Vital Signs, click to edit/add: Last Vital Signs Temp 98 F 06/29/23 07:53 Pulse 93 H 06/29/23 17:10 Resp 14 06/29/23 17:10 BP 147/95 H 06/29/23 16:09 Pulse Ox 97 06/29/23 16:09 O2 Del Method Room Air 06/29/23 16:00 Common normals: no apparent distress Chest Common normals: inspection of chest normal Respiratory Common normals: normal respiratory effort and no retractions Auscultation: rales (Bases but improved) Cardio Common normals: regular rate Common normals: no CVA tenderness Extremity Common normals: normal to inspection Discharge Plan Discharge Disposition: [facility] Condition: Fair Discharge Date/Time: 06/29/23 17:26 Discharge Location: The [facility]
== END 2023-06-29 17:26 | disposition short-term general hospital (02) | DRG 291 ==
LOC: ER 14:58 → ICU 16:02
PROVIDERS: Admitting Provider Nurse Practitioner; Emergency Provider Emergency Medicine; PCP Family Medicine; Visit Provider Family Medicine
DX: I11.0 Hypertensive heart disease with heart failure (principal); I50.41 Acute combined systolic (congestive) and diastolic (congestive) heart failure; J18.9 Pneumonia, unspecified organism; R00.0 Tachycardia, unspecified; Z90.710 Acquired absence of both cervix and uterus; E89.40 Asymptomatic postprocedural ovarian failure; R79.89 Other specified abnormal findings of blood chemistry; E03.9 Hypothyroidism, unspecified
CPT/HCPCS: 36415; 71046; 71275; 80053; 83605; 83735; 83880; 84436; 84443; 84481; 84484; 85025; 85378; 85652; 86140; 87040; 87804; 87811; 93005; 93306; 93356; 96365; 96367; 96372; 96375; 96376; 99285; J0456; Q9967

== ENCOUNTER 2023-07-25 14:16 | Outpatient (OUT) | payer SELFPAY ==
--- NOTE | 2023-07-25 14:23 | US_ITS ---
The [address] [address] Patient Name: LEANNE GLEASON MRN: [id number] date: 1975 Sex: F Assigned Patient Location: US Current Patient Location: US Accession/Order Number: [id number] Exam Date: 07/25/2023 14:25 Report Date: 07/25/2023 19:20 At the request of: PRADEEP PARRA Procedure: US arterial duplex UE RT Examination:US arterial duplex UE RT INDICATION:M25.531 Pain in right wrist COMPARISON:None. TECHNIQUE:The arterial system of the right upper extremity was evaluated utilizing color flow Doppler analysis. FINDINGS:There is multiphasic waveform throughout the arterial system of the right upper extremity. Normal flow velocities are present without evidence of a hemodynamically significant stenosis. There is no significant atherosclerotic plaque within the arterial system of the right upper extremity. US/US arterial duplex UE RT IMPRESSION: Negative right upper extremity arterial duplex. Electronically authenticated by: DEEPALI SARMIENTO Date: 07/25/2023 19:20
--- NOTE | 2023-07-25 14:25 | US_ITS ---
The [address] [address] Patient Name: LEANNE GLEASON MRN: [id number] date: 1975 Sex: F Assigned Patient Location: US Current Patient Location: US Accession/Order Number: [id number] Exam Date: 07/25/2023 14:25 Report Date: 07/25/2023 16:01 At the request of: PRADEEP PARRA Procedure: US venous doppler UE RT EXAM: US venous doppler UE RT HISTORY: M25.531 Right wrist pain COMPARISON: None. TECHNIQUE: Sonographic evaluation of the deep venous system of the right upper extremity was performed utilizing B-mode, color Doppler, and spectral imaging. FINDINGS: The internal jugular vein shows normal flow without filling defects. Normal cardiac pulsations are seen. The subclavian vein also showed normal flow and respiratory phasicity. No filling defects are identified. The axillary, brachial, basilic, and cephalic veins all appear patent and are normally compressible. The ulnar and radial veins also showed normal flow and compressibility. Additional findings: None. US/US venous doppler UE RT IMPRESSION: No evidence of deep venous thrombosis of the right upper extremity. Electronically authenticated by: LISANDRO ROLDAN Date: 07/25/2023 16:01
== END 2023-07-25 14:17 | disposition home or self-care (01) ==
LOC: US 14:18
PROVIDERS: PCP Family Medicine; Visit Provider Internal Medicine Interventional Cardiology
DX: M25.531 Pain in right wrist (principal)
CPT/HCPCS: 93931; 93971

== ENCOUNTER 2023-10-03 12:41 | Outpatient (OUT) | payer SELFPAY ==
--- NOTE | 2023-10-03 13:45 | CA_ITS ---
Patient Name: LEANNE GLEASON MR#: [id number] : 1975 Exam Date: 10/03/2023 Ordering Doctor: DR PRADEEP PARRA M.D. ECHOCARDIOGRAM REPORT PROCEDURE: CA ECHO DOPPLER COMPLETE INDICATIONS: CHF with low ejection fraction COMPARISON: None. DESCRIPTION: COMPLETE ECHOCARDIOGRAM Real-time transthoracic echocardiography with 2D, M-mode, spectral and color flow Doppler performed. QUALITY: Technical quality was good. LEFT VENTRICLE: Normal chamber size. Mild concentric left ventricular hypertrophy. Global left ventricular systolic function is mildly decreased. Abnormal septal motion likely due to bundle branch block. LV EF: Visual estimation of left ventricular ejection fraction is 45% DIASTOLIC: ATRIAL SEPTUM: LEFT ATRIUM: Mild dilatation. RIGHT ATRIUM: Mild dilatation. RIGHT VENTRICLE: Normal chamber size. Normal right ventricular systolic function. TRICUSPID VALVE: Normal mobility and thickness. No stenosis with mild regurgitation. No evidence of pulmonary hypertension. RVSP 34 mmHg MITRAL VALVE: Mildly thickened with normal mobility. No evidence of mitral valve stenosis. Mild mitral annular calcification. Mild mitral regurgitation. AORTIC VALVE: Normal trileaflet appearance. No visible sclerosis. Normal leaflet mobility. No evidence of aortic valve stenosis. No aortic regurgitation. AORTIC ROOT: Normal diameter and appearance. PULMONIC VALVE: Normal thickness and mobility. No stenosis. Trivial regurgitation. PERICARDIUM: No evidence of pericardial effusion. IVC: Collapses with inspirations. Normal size. PLEURA: CONCLUSION: 1. Mild concentric left ventricular hypertrophy with mildly reduced systolic function. Abnormal septal motion is noted with dyssynchrony of ventricular contractility likely related to bundle branch block. Estimated LVEF is 45%. 2. Normal right ventricular size and systolic function. 3. Mild biatrial dilatation. 4. Mild mitral and tricuspid regurgitation. 5. Normal right-sided pressures. Adult Echocardiography Procedure Report Left Ventricle LVEDD (3.7 - 5.6 cm): 5.18 cm LVESD (2.2 - 4.0 cm): 4.06 cm LVIVS thickness (0.6 - 1.2 cm): 1.15 cm LVPW thickness (0.5 - 1.0 cm): 1.17 cm e': 0.09 m/s E - e': 6.89 LVOT Max Gradient: 5.21 mm[Hg] LVOT Area (cm2): 1.14 m/s Peak Velocity (LVOT): 1.14 m/s Mean Velocity (LVOT): 0.83 m/s LVOT Diameter 1.78 cm Left Ventricular Ejection Fraction: 45 % Left Atrium LA Volume Index (2D A2C): 35.39 ml/m2 Left Atrium Systolic Dimension: 3.38 cm Mitral Valve MV E to A Ratio: 0.69 Mitral Valve A-Wave Peak Velocity: 0.92 m/s Mitral Valve E-Wave Peak Velocity: 0.64 m/s Right Ventricle RV Internal Diastolic Dimension: 3.33 cm Aorta AO Root Diam: 3.02 cm Ascending Ao Diam: 2.70 cm Aortic Valve AoV Area (Peak Agustín): 1.35 cm2, 1.34 cm2 AoV Area (VTI): 1.34 cm2, 1.32 cm2 Peak Velocity(Antegrade Flow): 2.10 m/s, 2.07 m/s Peak Gradient(Antegrade Flow): 17.67 mm[Hg], 17.07 mm[Hg] Mean Velocity(Antegrade Flow): 1.46 m/s, 1.44 m/s Mean Gradient(Antegrade Flow): 9.74 mm[Hg], 9.44 mm[Hg] Velocity Time Integral: 41.47 cm, 40.13 cm Tricuspid Valve Peak Velocity (Regurgitant Flow): 2.63 m/s, 2.32 m/s, 2.78 m/s Pulmonic Valve Peak Velocity: 1.30 m/s Peak Gradient: 6.55 mm[Hg], 7.04 mm[Hg] Right Atrium Right Atrium Systolic Pressure: 44.64 ml, 44.64 ml Dictated by: Bharath Palumbo M.D. on 10/03/2023 at 18:24 Approved by: Bharath Palumbo M.D. on 10/03/2023 at 18:28
== END 2023-10-03 12:42 | disposition home or self-care (01) ==
LOC: CARD 12:41
PROVIDERS: PCP Family Medicine; Visit Provider Internal Medicine Interventional Cardiology
DX: I50.41 Acute combined systolic (congestive) and diastolic (congestive) heart failure (principal); I08.1 Rheumatic disorders of both mitral and tricuspid valves
CPT/HCPCS: 93306

== ENCOUNTER 2023-10-27 13:45 | Outpatient (OUT) | payer SELFPAY ==
--- OUTSIDE RECORDS SUMMARY | 2023-10-27 13:57 | XMS_ITS | CCD ---
Author Organization [facility] Care Team Providers Care Food Preparation Worker Name Role Phone Timmis, Evon H. Unavailable Unavailable Timmis, Evon H. Unavailable Unavailable Timmis, Evon H. Unavailable Unavailable KATHY BRUCE~[phone] UNKNOWN Unavailable Unavailable Timmis, Evon H. Unavailable Unavailable Timmis, Evon H. Unavailable Unavailable Timmis, Evon H. Unavailable Unavailable KATHY BRUCE~[phone] UNKNOWN Unavailable Unavailable JUVE, PETER Admitting Unavailable JUVE, ARIC Attending Unavailable KATHY BRUCE Primary Care Unavailable JAIRON RENDON Consulting Unavailable MADAYANDER, ARIC Consulting Unavailable MADAYANDER, PETER Admitting Unavailable MADAYANDERARIC Attending Unavailable KATHY BRUCE Primary Care Unavailable JUVE, ARIC Consulting Unavailable JUVE, ARIC Admitting Unavailable ARIC AN Attending Unavailable KATHY BRUCE Primary Care Unavailable FRANK SCALES Consulting Unavailable JUVE, ARIC Consulting Unavailable KATHY BRUCE Admitting Unavailable KATHY BRUCE Attending Unavailable KATHY BRUCE Primary Care Unavailable KATHY BRUCE Consulting Unavailable Kathy Bruce MD Primary Care Provider Kathy Bruce MD Primary Care Provider [phone] PAULA CHANG Referring Unavailable HORANI, MARIELLA Admitting Unavailable BOAZ BROOKE Attending Unavailable PRADEEP PAYNE Attending Unavailable ELTAHAWLEEANN ChunAB Attending Unavailable HORANI, MARIELLA Referring Unavailable HORANI, MARIELLA Referring Unavailable HORANI, MARIELLA Referring Unavailable HORANI, MARIELLA Referring Unavailable DONNY VIRGEN Attending Unavailable Medications Current Medications Medication Drug Class(es) Dates Sig (Normalized) Sig (Original) cycloSPORINE 0.5 mg/ml ophthalmic suspension (3 sources) Calcineurin Inhibitor Immunosuppressant take 1 drop(s) into the eye(s) twice daily cycloSPORINE (RESTASIS) 0.05 % ophthalmic emulsion 1 Drop 2 times daily. 0 Active hydroCHLOROthiazide 25 mg oral tablet (3 sources) Thiazide Diuretic take 1 tablet by mouth once daily hydrochlorothiazide (HYDRODIURIL) 25 MG tablet Take 25 mg by mouth daily. 0 Active levothyroxine sodium 0.1 mg oral tablet (3 sources) l-Thyroxine take 1 tablet by mouth once daily levothyroxine (SYNTHROID) 100 MCG tablet Take 100 mcg by mouth daily. 0 Active lisinopril 10 mg oral tablet (3 sources) Angiotensin Converting Enzyme Inhibitor Start: 09-23-19 18 lisinopril (ZESTRIL) 10 MG tablet meloxicam 15 mg oral tablet (3 sources) Nonsteroidal Anti-inflammatory Drug Start: 10-12-19 18 take 1 tablet by mouth once daily as needed meloxicam (MOBIC) 15 MG tablet Take 1 Tablet by mouth daily as needed. 90 Tablet 1 10/11/2017 Active Multiple Vitamins-Minerals (CENTRUM ORAL) (3 sources) Multiple Vitamins-Minerals (CENTRUM ORAL) Take by mouth. 0 Active Problems Active Problems Problem Classification Problem Date Documented Da te Episodic/Chronic Congestive heart failure; nonhypertensive (4 sources) Acute combined systolic (congestive) and diastolic (congestive) heart failure; Translations: [Acute systolic (congestive) heart failure] Onset: 06-29-2023 Chronic Essential hypertension (1 source) Essential (primary) hypertension; Translations: [ESSENTIAL PRIMARY HYPERTENSION] Onset: 06-07-2018 Chronic Other circulatory disease (1 source) Raynaud's syndrome without gangrene; Translations: [RAYNAUDS SYNDROME WITHOUT GANGRENE] Onset: 08-10-2017 Chronic Other non-traumatic joint disorders (2 sources) Pain in right wrist; Translations: [Pain in right wrist] Onset: 07-25-2023 Episodic Radha-; endo-; and myocarditis; cardiomyopathy (except that caused by tuberculosis or sexually transmitted disease) (2 sources) Other cardiomyopathies; Translations: [Other cardiomyopathies] Onset: 10-09-2023 Chronic Systemic lupus erythematosus and connective tissue disorders (3 sources) Sicca syndrome, unspecified; Translations: [Sicca syndrome] Onset: 04-12-2016 04-12-2016 Chronic Thyroid disorders (1 source) Hypothyroidism, unspecified; Translations: [HYPOTHYROIDISM UNSPECIFIED] Onset: 06-07-2018 Chronic Past or Other Problems Problem Classification Problem Date Documented Date Episodic/Chronic Immunizations and screening for infectious disease (3 sources) Anti-nuclear factor positive; Translations: [Other specified abnormal immunological findings in serum] Onset: 04-12-2016 04-12-2016 Episodic Other connective tissue disease (5 sources) Plantar fascial fibromatosis; Translations: [PLANTAR FASCIAL FIBROMATOSIS] Onset: 08-03-2017 Episodic Other lower respiratory disease (3 sources) Snoring; Translations: [Snoring] Onset: 04-12-2016 04-12-2016 Episodic Residual codes; unclassified (1 source) Acquired absence of other specified parts of digestive tract; Translations: [ACQ ABSENCE OTH PART DIGESTV TRACT] Onset: 08-10-2017 Episodic Residual codes; unclassified (1 source) Acquired absence of both cervix and uterus; Translations: [ACQUIRED ABSENCE BOTH CERVIX AND UTERUS] Onset: 08-10-2017 Episodic Results Test Name Value Interpretation Reference Range Facility Office Visiton 10-09-2023 Follow-up visit [id number] Nancy Higgins ra R 1975 F Date Provider Department Center 10/09/2023 PRADEEP FULTON Family History Problem Relation Age of Onset Diabetes Father Family Status - Relation Status Age at Father Level of Service:65316 [place] OFFICE/OUTPATIENT ESTABLISHED LOW MDM 20 MIN Normal [facility] Office Visiton 07-25-2023 Follow-up visit [id number] Nancy Higgins ra R 1975 F Date Provider Department [place] 07/25/2023 PRADEEP FULTON Family History Problem Relation Age of Onset Diabetes Father Family Status - Relation Status Age at Father Level of Service:48898 [place] OFFICE/OUTPATIENT ESTABLISHED MOD MDM 30 MIN Normal [facility] Orders Onlyon 07-21-2023 [id number] 1975 [facility] 07/21/2023 [id number], HISTORICAL LEI [facility] No family history on file Normal [facility] 37on 07-10-2023 37 --Medicines were ref illed: Atorvastatin, Farxiga and metoprolol. --If you can afford would like you to take Entresto 24-26mg twice daily instead of valsartan 80mg twice daily. Your first dose of Entresto would be 12 hours after final dose of Valsartan which you would stop and not take together. --IF you DO NOT start the Entresto, let me know so I can re-order the Valsartan --New medicine: Spironolactone 25mg, start with 1/2 tablet daily at any time of day you prefer, good idea to stagger when you take this many pills. After 1 week try taking 1 whole tablet per day, but if this makes you dizzy, then go back to 1/2 tablet. Prefer labs in 2 weeks: Basic metabolic panel. Call around to local labs for cost. Call about patient assistance programs as we discussed There are Patient Assistance Programs for reduced cost or free drug through individual manufacturers. Call and see if you qualify. If yes, they will send you paperwork for you and your provider to complete. Finish your part (with any proof of income or tax statements) and bring to the cardiology clinic and we will finish the provider part and fax for you. Usually have response within a week. We are here to help. For Entresto/ Sacubitril-vasartan: Call [employer] at [phone], Monday through Monday 8am to 8pm Eastern time For Farxiga/Dapagliflozin Call [place] [facility] [place] at [phone], Monday through Monday 9am to 6pm Eastern time Donny Dhaliwal, MARI [place] [facility] Contact me via Film Or Tape Librarian Vesna Partida [phone] [facility] Telemedicineon 07-10-2023 Telemedicine [id number] Nancy Higgins ra 1975 F Date Provider Department Center 07/10/2023 [id number] VIRGEN [facility] CARD [place] [facility] Family History Problem Relation Age of Onset Diabetes Father Family Status - Relation Status Age at Father Level of Service:90286 [place] OFFICE/OUTPATIENT ESTABLISHED MOD MDM 30 MIN [facility] 36on 07-05-2023 36 Discharge date: Call date: 07/05/23 Spoke with: patient HF Follow-up date: 07/10/23 Med reconciliation completed: yes Questions/Concerns: Home meds reviewed with patient. Per pt, she is monitoring daily weights and BP. Pt is aware of her telemed follow up visit and was curious of the process. Cap Blocker notified pt that the clinic will reach out prior to the appt with instructions. Pt denied any additional questions or concerns. Cap Blocker provided pt with [facility] and [facility] phone numbers. Pt stated she will reach out to [facility] to schedule. [facility] Telephoneon 07-05-2023 Telephone [id number] [facility] 1975 [facility] [place] 07/05/2023 SUNDEEP CANTU [facility] VASC LAB [place] [facility] No family history on file [facility] 36on 07-04-2023 36 Unable to reach pt, VM msg left for call back [facility] 36 VM msg left for pt t o call back [facility] 36 Per Radha otero apt with [facility] in 3-4 weeks. LM on patient's VM to call back and get scheduled. [facility] Documentationon 07-04-2023 Documentation [id number] [place], Ca ra 1975 F Date Provider Department [place] 07/04/2023 SUNDEEP CANTU [facility] [place] [facility] No family history on file Reason for Visit and Comments: HF inpatient satisfaction survey sent. [Other] [facility] 30on 07-03-2023 30 Problem: Pain - Adul t Goal: Verbalizes/displays adequate comfort level or baseline comfort level Outcome: Progressing Flowsheets (Taken 07/03/2023 08) Verbalizes/displays adequate comfort level or baseline comfort level: Encourage patient to monitor pain and request assistance Assess pain using appropriate pain scale Administer analgesics based on type and severity of pain and evaluate response Implement non-pharmacological measures as appropriate and evaluate response Consider cultural and social influences on pain and pain management Notify Licensed Independent Practitioner if interventions unsuccessful or patient reports new pain Problem: Safety - Adult Goal: Free from fall injury Outcome: Progressing Flowsheets (Taken 07/03/2023799) Free from fall injury: Assess patient frequently for physical needs Identify cognitive and physical deficits and behaviors that affect risk of falls Welch fall precautions as indicated by assessment Educate patient/family on patient safety, including physical limitations Instruct patient to call for assistance with activity based on assessment Modify environment to reduce risk of injury Consider OT/PT consult to assist with strengthening/mobility Problem: Discharge Planning Goal: Discharge to home or other facility with appropriate resources Outcome: Progressing Flowsheets (Taken 07/03/2023799) Discharge to home or other facility with appropriate resources: Identify barriers to discharge with patient and caregiver Arrange for needed discharge resources and transportation as appropriate Identify discharge learning needs (meds, wound care, etc) Arrange for interpreters to assist at discharge as needed Refer to discharge planning if patient needs post-hospital services based on physician order or complex needs related to functional status, cognitive ability or social support system Problem: Chronic Conditions and Co-morbidities Goal: Patient's chronic conditions and co-morbidity symptoms are monitored and maintained or improved Outcome: Progressing Flowsheets (Taken 07/03/2023799) Care Plan - Patient's Chronic Conditions and Co-Morbidity Symptoms are Monitored and Maintained or Improved: Monitor and assess patient's chronic conditions and comorbid symptoms for stability, deterioration, or improvement Collaborate with multidisciplinary team to address chronic and comorbid conditions and prevent exacerbation or deterioration Update acute care plan with appropriate goals if chronic or comorbid symptoms are exacerbated and prevent overall improvement and discharge The patient is Moderately Stable - Low risk of patient condition declining or worsening The patient's goals for the shift include cardiac cath The clinical goals for the shift include hemodynamically stable Normal [facility] BASIC METABOLIC PANELon 05-0 Anion gap [Moles/Vol] 11 mmol/L Normal 7-20 [facility] Comment on above: Performed By: #### L [id number] #### [facility] (BEAKER) [address] [place] [address] Calcium [Mass/Vol] 9.3 mg/dL Normal 8.6-10.[address] [facility] Comment on above: Performed By: #### L [id number] #### [facility] ([employer]) [address] [place] [address] Chloride [Moles/Vol] 98 mmol/L Normal 98-107 [facility] Comment on above: Performed By: #### L [id number] #### [facility] (BEAKER) [address] [place] [address] CO2 [Moles/Vol] 29 mmol/L Normal 21-31 [facility] Comment on above: Performed By: #### L [id number] #### [facility] ([facility]) [address] [place] [address] Creatinine [Mass/Vol] 1.15 mg/dL Normal 0.60-1.20 [facility] Comment on above: Performed By: #### L [id number] #### [facility] ([facility]) [address] [place] [address] GLOMERULAR FILTRATION RATE ML/MIN/1.73 SQ M.PREDICTED 58.4 mL/min/1.73m*2 Low >60.0 [facility] Comment on above: Result Comment: The [facility]???s estimated glomerular filtration rate (eGFR) will no longer include consideration of race in its calculation. The National Kidney Foundation???s eGFR Task Force developed new recommendations for the estimation of the glomerular filtration rate in the [place] They recommend immediate implementation of the new equation refit without the race variable in all laboratories because the calculation does not include race. In addition to not including race in the calculation and reporting, it included diversity in its development, and has acceptable performance characteristics and potential consequences that do not disproportionately affect any one group of individuals. Performed By: #### L [id number] #### [facility] ([facility]) [address] [place] [address] Glucose [Mass/Vol] 93 mg/dL Normal 70-[address] [facility] Comment on above: Performed By: #### L [id number] #### [facility] ([facility]) [address] [place] [address] Potassium [Moles/Vol] 3.7 mmol/L Normal 3.5-5.1 [facility] Comment on above: Performed By: #### L [id number] #### [facility] ([facility]) [address] [place] [address] Sodium [Moles/Vol] 134 mmol/L Low 136-[address] [facility] Comment on above: Performed By: #### L [id number] #### [facility] ([facility]) [address] [place] [address] Urea nitrogen [Mass/Vol] 26 mg/dL High 7-25 [facility] Comment on above: Performed By: #### L [id number] #### [facility] ([facility]) [address] [place] [address] UREA NITROGEN/CREATININ E (MASS RATIO) IN SER/PLAS 22.6 Normal [facility] Comment on above: Performed By: #### L [id number] #### [facility] ([facility]) [address] [place] [address] CBCon 07-03-2023 Erythrocyte distribution width (RBC) [Ratio] 14.5 % Normal 11.5-15.0 [facility] Comment on above: Performed By: #### L [id number] ####[facility] ([facility])[address] [place] [address] ERYTHROCYTE MEAN CORPUSCULAR HEMOGLOBIN CONCENTRATION (G/DL) BY AUTOMATED 33.7 g/dL Normal 32.0-35.0 [facility] Comment on above: Performed By: #### L [id number] ####[facility] ([facility])[address] [place] [address] Hematocrit (Bld) [Volume fraction] 41.5 % Normal 36.0-48.0 [facility] Comment on above: Performed By: #### L [id number] ####[facility] ([facility])[address] [place] [address] Hemoglobin (Bld) [Mass/Vol] 14.0 g/dL Normal 12.0-15.0 [facility] Comment on above: Performed By: #### L [id number] ####[facility] ([facility])[address] [place] [address] MCH (RBC) [Entitic mass] 28.7 pg Normal 27.0-33.0 [facility] Comment on above: Performed By: #### L [id number] ####[facility] ([facility])[address] [place] [address] MCV (RBC) [Entitic vol] 85.2 fL Normal 82.0-98.0 [facility] Comment on above: Performed By: #### L [id number] ####[facility] ([facility])[address] [place] [address] PLATELETS (10*3/UL) IN BLOOD AUTOMATED COUNT 255 10*3/uL Normal 150-400 [facility] Comment on above: Performed By: #### L [id number] ####[facility] ([facility])[address] [place] [address] RBC (Bld) [#/Vol] 4.87 10*6/uL Normal 3.80-5.00 [facility] Comment on above: Performed By: #### L [id number] ####[facility] ([facility])[address] [place] [address] WBC (Bld) [#/Vol] 10.95 10*3/uL High 4.00-10.60 [facility] Comment on above: Performed By: #### L [id number] ####[facility] ([facility])[address] [place] [address] CONSULTon 07-03-2023 CONSULT Social Work Consult received for SNF and HHC Patient admitted to [facility] 06/29/2023, from home with complaint of shortness of breath and chest pain; admission diagnosis acute systolic heart failure Patient confirmed PCP is Dr. Kathy Bruce; Patient confirmed any new prescriptions resulting from this admission can be filled through [facility] (prior to leaving hospital). Cap Blocker encouraged Patient to participate in a follow up appointment with her PCP as well as follow up with [facility] cardiac rehab-- to monitor any symptoms or concerns that she may have following this admission. Patient stating no health insurance in place; referral sent to [employer]. Patient reports no history of HHC or SNF placement; no OT or PT orders placed this admission; no needs identified for DME or HHC services. Patient stating her daughter is planning to arrive around 5pm and will be her transportation home. Normal [facility] COXSACKIE A9 VIRUS ANTIBODIE Son 07-03-2023 COXSACKIE A SERO 9 TITER 1:8 Normal <1:8 [facility] Comment on above: Result Comment: INTE RPRETIVE INFORMATION: Coxsackie A Serotype 9 Titer Single positive antibody titers of greater than 1:32 may indicate past or current infection. Seroconversion or an increase in titers between acute and convalescent sera of at least fourfold is considered strong evidence of current or recent infection. Performed By: [facility] [address] [place] [address] Assistant Laboratory Director: Tima William MD, PhD CLIA Number: [id number] Performed By: #### L [id number] #### [facility] ([facility]) [address] [place] [address] COXSACKIE B VIRUS ANTIBODIES on 07-03-2023 COX[place]IE B1 ANTIBODY 1:10 Normal <1:10 [facility] Comment on above: Performed By: #### L [id number] #### [facility] ([facility]) [address] [place] [address] COXSACKIE B2 ANTIBODY 1:40 Normal <1:10 [facility] Comment on above: Performed By: #### L [id number] #### [facility] ([facility]) [address] [place] [address] COXSACKIE B3 ANTIBODY <1:10 Normal <1:10 [facility] Comment on above: Performed By: #### L [id number] #### [facility] ([facility]) [address] [place] [address] COXSACKIE B4 ANTIBODY 1:20 Normal <1:10 [facility] Comment on above: Performed By: #### L [id number] #### [facility] ([facility]) [address] [place] [address] COXSACKIE B5 ANTIBODY <1:10 Normal <1:10 [facility] Comment on above: Performed By: #### L [id number] #### [facility] ([facility]) [address] [place] [address] COXSACKIE B6 ANTIBODY <1:10 Normal <1:10 [facility] Comment on above: Result Comment: INTE RPRETIVE INFORMATION: Coxsackie B Virus Single positive antibody titers of greater than or equal to 1:80 may indicate past or current infection. Sero- conversion or an increase in titers between acute and convalescent sera of at least fourfold is considered strong evidence of current or recent infection. Performed By: [facility] [address] [place] [address] Assistant Laboratory Director: Tima William MD, PhD CLIA Number: [id number] Performed By: #### L [id number] #### [facility] ([facility]) [address] [place] [address] ENTEROVIRUS PCRon 07-03-2023 ENTEROVIRUS PCR Not detected Normal [facility] Comment on above: Result Comment: NOT DETECTED - A negative result does not rule out the presence of PCR inhibitors in the patient specimen or assay specific nucleic acid in concentrations below the level of detection by the assay. INTERPRETIVE INFORMATION: Enterovirus by PCR This test was developed and its performance characteristics determined by [facility]. It has not been cleared or approved by the [place] Food and Drug Administration. This test was performed in a CLIA certified laboratory and is intended for clinical purposes. Performed By: [facility] [address] [place] [address] Assistant Laboratory Director: Tima William MD, PhD CLIA Number: [id number] Performed By: #### L [id number] ####[facility] ([facility])[address] [place] [address] [employer] [facility] Comment on above: Performed By: #### L [id number] ####[facility] ([facility])[address] [place] [address] HPon 07-03-2023 HP H&P reviewed. The pa tient was examined and there are no changes to the H&P. New HFrEF Proceed with RHC and Cors [facility] NURSNOTEon 07-03-2023 NURSNOTE Discharge instructio ns reviewed with pt and pt daughter Boby who is at bedside. Provided post cath discharge instructions with pt/family as well, copy of these instructions also given with contact numbers if pt should arrive home and have issues after discharge.Pt and daughter express understanding at this time. [facility] 07-02-2023 30 The patient is Moder ately Stable - Low risk of patient condition declining or worsening The patient's goals for the shift include comfort, rest The clinical goals for the shift include stable vitals Over the shift, the patient did not make progress toward the following goals. Problem: Pain - Adult Goal: Verbalizes/displays adequate comfort level or baseline comfort level Outcome: Progressing Problem: Safety - Adult Goal: Free from fall injury Outcome: Progressing Problem: Discharge Planning Goal: Discharge to home or other facility with appropriate resources Outcome: Progressing Problem: Chronic Conditions and Co-morbidities Goal: Patient's chronic conditions and co-morbidity symptoms are monitored and maintained or improved Outcome: Progressing Normal [facility] 30 Problem: Pain - Adul t Goal: Verbalizes/displays adequate comfort level or baseline comfort level Outcome: Progressing Flowsheets (Taken 07/02/2023911) Verbalizes/displays adequate comfort level or baseline comfort level: Assess pain using appropriate pain scale Administer analgesics based on type and severity of pain and evaluate response Implement non-pharmacological measures as appropriate and evaluate response Problem: Safety - Adult Goal: Free from fall injury Outcome: Progressing Flowsheets (Taken 07/02/2023911) Free from fall injury: Identify cognitive and physical deficits and behaviors that affect risk of falls Welch fall precautions as indicated by assessment Educate patient/family on patient safety, including physical limitations Problem: Discharge Planning Goal: Discharge to home or other facility with appropriate resources Outcome: Progressing Flowsheets (Taken 07/02/2023911) Discharge to home or other facility with appropriate resources: Identify barriers to discharge with patient and caregiver Arrange for needed discharge resources and transportation as appropriate Identify discharge learning needs (meds, wound care, etc) Problem: Chronic Conditions and Co-morbidities Goal: Patient's chronic conditions and co-morbidity symptoms are monitored and maintained or improved Outcome: Progressing Flowsheets (Taken 07/02/2023911) Care Plan - Patient's Chronic Conditions and Co-Morbidity Symptoms are Monitored and Maintained or Improved: Monitor and assess patient's chronic conditions and comorbid symptoms for stability, deterioration, or improvement Collaborate with multidisciplinary team to address chronic and comorbid conditions and prevent exacerbation or deterioration The patient is Moderately Unstable - Medium risk of patient condition declining or worsening The patient's goals for the shift include comfort and rest The clinical goals for the shift include stable VS Normal [facility] 30on 07-01-2023 30 The patient is Moder ately Stable - Low risk of patient condition declining or worsening The patient's goals for the shift include comfort and rest The clinical goals for the shift include stable VS Over the shift, the patient did make progress toward her goals. Normal [facility] 30 The patient is Moder ately Stable - Low risk of patient condition declining or worsening The patient's goals for the shift include comfort The clinical goals for the shift include vss, diuerisis Over the shift, the patient did make progress toward the following goals. Barriers to progression include n/a. Recommendations to address these barriers include n/a. Continued heart failure education, awaiting cardiac cath on Sunday 07/02 Problem: Pain - Adult Goal: Verbalizes/displays adequate comfort level or baseline comfort level Outcome: Progressing Problem: Safety - Adult Goal: Free from fall injury Outcome: Progressing Problem: Discharge Planning Goal: Discharge to home or other facility with appropriate resources Outcome: Progressing Problem: Chronic Conditions and Co-morbidities Goal: Patient's chronic conditions and co-morbidity symptoms are monitored and maintained or improved Outcome: Progressing Normal [facility] ANAon 07-01-2023 GERI PATTERN Homogeneous Normal [facility] Comment on above: Performed By: #### L [id number] ####[facility] ([facility])[address] [place] [address] GERI TITER 1:80 High <=1:40 [facility] Comment on above: Result Comment: Test performed using GATO IFA GERI Hep-2 Test, a pre-standardized assay designed for the qualitative and semi-quantitative detection of antinuclear antibodies. Performed By: #### L [id number] ####[facility] ([facility])[address] [place] [address] ANTI-DNA ANTIBODY, DOUBLE-ST RANDEDon 07-01-2023 DSDNA ANTIBODY TITER <1:10 Normal <1:10 [facility] Comment on above: Performed By: #### L [id number] ####[facility] ([facility])[address] [place] [address] ANTI-HOLLIE 1 ANTIBODY, IGGon ANTI HOLLIE-1 IGG 2 AU/mL Normal 0-40 [facility] Comment on above: Result Comment: INTE RPRETIVE INFORMATION: Hollie-1 Antibody, IgG 29 AU/mL or less.........Negative 30-40 AU/mL..............Equivocal 41 AU/mL or greater......Positive Presence of Hollie-1 (antihistidyl transfer RNA [t-RNA] synthetase) antibody is associated with polymyositis and may also be seen in patients with dermatomyositis. Hollie-1 antibody is associated with pulmonary involvement (interstitial lung disease), Raynaud phenomenon, arthritis, and calculating machine mechanic's hands (implicated in antisynthetase syndrome). Performed By: [employer] [address] [place] [id number] Assistant Laboratory Director: Tima William MD, PhD CLIA Number: [id number] Performed By: #### L [id number] #### [facility] ([facility]) [address] [place] [address] BASIC METABOLIC PANELon 05-0 Anion gap [Moles/Vol] 12 mmol/L Normal 7-20 [facility] Comment on above: Performed By: #### L [id number] #### [facility] ([facility]) [address] [place] [address] Calcium [Mass/Vol] 9.1 mg/dL Normal 8.6-10.[address] [facility] Comment on above: Performed By: #### L [id number] #### [facility] ([facility]) [address] [place] [address] Chloride [Moles/Vol] 101 mmol/L Normal 98-107 [facility] Comment on above: Performed By: #### L [id number] #### [facility] ([facility]) [address] [place] [address] CO2 [Moles/Vol] 27 mmol/L Normal 21-31 [facility] Comment on above: Performed By: #### L [id number] #### [facility] ([facility]) [address] [place] [address] Creatinine [Mass/Vol] 1.12 mg/dL Normal 0.60-1.20 [facility] Comment on above: Performed By: #### L [id number] #### [facility] ([facility]) [address] [place] [address] GLOMERULAR FILTRATION RATE ML/MIN/1.73 SQ M.PREDICTED 60.3 mL/min/1.73m*2 Normal >60.0 [facility] Comment on above: Result Comment: The [facility]???s estimated glomerular filtration rate (eGFR) will no longer include consideration of race in its calculation. The National Kidney Foundation???s eGFR Task Force developed new recommendations for the estimation of the glomerular filtration rate in the [place] They recommend immediate implementation of the new equation refit without the race variable in all laboratories because the calculation does not include race. In addition to not including race in the calculation and reporting, it included diversity in its development, and has acceptable performance characteristics and potential consequences that do not disproportionately affect any one group of individuals. Performed By: #### L [id number] #### [facility] ([facility]) [address] [place] [address] Glucose [Mass/Vol] 91 mg/dL Normal 70-[address] [facility] Comment on above: Performed By: #### L [id number] #### [facility] ([facility]) [address] [place] [address] Potassium [Moles/Vol] 3.8 mmol/L Normal 3.5-5.1 [facility] Comment on above: Performed By: #### L [id number] #### [facility] ([facility]) [address] [place] [address] Sodium [Moles/Vol] 136 mmol/L Normal 136-[address] [facility] Comment on above: Performed By: #### L [id number] #### [facility] ([facility]) [address] [place] [address] Urea nitrogen [Mass/Vol] 17 mg/dL Normal 7-25 [facility] Comment on above: Performed By: #### L [id number] #### [facility] ([facility]) [address] [place] [address] UREA NITROGEN/CREATININ E (MASS RATIO) IN SER/PLAS 15.2 Normal [facility] Comment on above: Performed By: #### L [id number] #### [facility] ([facility]) [address] [place] [address] SJOGRENS SYNDROME ANTIBODIES A AND Bon 07-01-2023 KIRAN TO SSA (RO) ANTIBODY Negative Normal Negative [facility] Comment on above: Performed By: #### L [id number] ####[facility] ([facility])[address] [place] [address] KIRAN TO SSB (LA) ANTIBODY Negative Normal Negative [facility] Comment on above: Performed By: #### L [id number] ####[facility] ([facility])[address] [place] [address] SPUTUM CULTUREon 07-01-2023 Bacteria identified Cx Nom (Unsp spec) Moderate Growth Colonies Consistent with Upper Respiratory Leyda Normal [facility] Comment on above: Performed By: #### L [id number] ####[facility] ([facility])[address] [place] [address] GRAM STAIN RESULT Normal [facility] Comment on above: Result Comment: 10-2 5 Squamous Epithelial Cells Per Low Power Field 10-25 Polys Per Low Power Field Few Gram positive cocci in clusters Rare Gram negative bacilli Performed By: #### L [id number] ####[facility] ([facility])[address] [place] [address] THYROID PEROXIDASE ANTIBODYo n 07-01-2023 THYROPEROXIDASE AB (IU/ML) IN SER/PLAS 458.4 IU/mL High 0.0-9.0 [facility] Comment on above: Result Comment: Perf ormed By: [employer] [address] [place] [address] Assistant Laboratory Director: Tima William MD, PhD CLIA Number: [id number] Performed By: #### L [id number] ####[facility] ([facility])[address] [place] [address] 30on 05-03-2024 30 The patient is Moder ately Stable - Low risk of patient condition declining or worsening The patient's goals for the shift include comfort, rest The clinical goals for the shift include stable vitals, safety Problem: Pain - Adult Goal: Verbalizes/displays adequate comfort level or baseline comfort level Outcome: Progressing Problem: Safety - Adult Goal: Free from fall injury Outcome: Progressing Problem: Chronic Conditions and Co-morbidities Goal: Patient's chronic conditions and co-morbidity symptoms are monitored and maintained or improved Outcome: Progressing Normal [facility] 30 Daily Case Managemen t Update Multidisciplinary rounds have been completed. Barriers to Discharge: Pending clinical course of new acute onset HF; EF 13-20%; IV Laix 40mg BID; pending heart cath today. Plan to discharge home when medically cleared. Patient currently is self-pay, [facility] notified and met with patient to discuss medicaid options. Diet: Dietary Orders (From admission, onward) Start Ordered 06/30/23 1255 Special Kitchen Request Once Comments: Mashed potatoes entree green beans 06/30/23 1256 06/30/23 1235 Regular Diet Heart Healthy/HTN, CABG,Stroke, (2gNA, low fat, low cholesterol) Diet effective now Question Answer Comment Room Service? Yes Fat restriction: Heart Healthy/HTN, CABG,Stroke, (2gNA, low fat, low cholesterol) 06/30/23 1234 Physician Expected Discharge Date: 07/04/2023 PT Six Click Score: 24 OT Six Click Score: Normal [facility] 30 The patient is Moder ately Stable - Low risk of patient condition declining or worsening The patient's goals for the shift include complete testing The clinical goals for the shift include vss, comfort Over the shift, the patient did not make progress toward the following goals. Barriers to progression include awaiting testing. Recommendations to address these barriers include continue to monitor. Problem: Discharge Planning Goal: Discharge to home or other facility with appropriate resources Outcome: Not Progressing Problem: Pain - Adult Goal: Verbalizes/displays adequate comfort level or baseline comfort level Outcome: Progressing Problem: Safety - Adult Goal: Free from fall injury Outcome: Progressing Problem: Discharge Planning Goal: Discharge to home or other facility with appropriate resources Outcome: Not Progressing Normal [facility] CONSULTon 06-30-2023 CONSULT -------- Attestation signed by Isac Schaeffer MD at 07/03/2023 12:50 PM I personally saw and examined the patient on the same date of service as resident/fellow Alba Ralph. I discussed the findings and therapeutic plan with the resident/fellow Alba Ralph. I agree with the documentation, except for any edits/updates below. Teaching Physician's Revisions: As noted above Cardiology Consult Note Reason for Consult: Patient was accepted by for heart cath HPI: Leanne Higgins is a 48 y.o. female without significant PMHx due to no PCP followup who presented with weeks of worsening SOB and productive greenish cough. 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 She endorses PND, Zamudio and some LE edema, which have all since improved. At [facility], CXR showed cardiac enlargement, CTA chest showed diffused ground glass with pleural effusion, pro-BNP >3000, ECHO 25%-30% (new), and she was transferred to [facility] for potential cardiac catheterization. TSH 19, normal free T4, A1c 5.0%, LDL 98, TG 161. We are consulted for new HFrEF and the need for possible heart cath. Interval Hx: Patient seen and examined at bedside. In NAD. Resting comfortably. She is accompanied by two family members at bedside. She reports feeling 100% better, and denies any cough or SOB. She states LE edema improved greatly. She did still however report some SOB while laying back concerning for PND. She is on Lasix 40mg IV bid. We started her on Levothyroxine 50mcg. She has not seen PCP in 4-5 years. Cardiology ROS: Negative except as mentioned. Past Medical History She has no past medical history on file. Surgical History She has no past surgical history on file. Social History She reports that she has never smoked. She has been exposed to tobacco smoke. She has never used smokeless tobacco. No history on file for alcohol use and drug use. Family History No family history on file. Allergies Patient has no known allergies. Medications No current outpatient medications No medications prior to admission. Last Recorded Vitals Patient Vitals for the past 24 hrs: BP Temp Temp src Pulse Resp SpO2 Height Weight 06/30/23 1200 106/74 36.3 ???C (97.3 ???F) -- 71 15 -- -- -- 06/30/23 0931 122/86 -- -- 87 -- -- -- -- 06/30/23 0740 127/83 36.4 ???C (97.6 ???F) Temporal 78 16 95 % -- -- 06/30/23 0630 117/81 36.3 ???C (97.3 ???F) Temporal 81 21 96 % -- -- 06/30/23 0613 -- -- -- -- -- -- -- 86.3 kg (190 lb 3.2 oz) 06/29/23 2310 108/69 36.3 ???C (97.3 ???F) Temporal 84 18 96 % -- -- 06/29/23 2300 107/74 -- -- 85 18 93 % -- -- 06/29/23 2200 123/90 -- -- 91 19 94 % -- -- 06/29/23 2100 (!) 146/100 -- -- 91 20 97 % -- -- 06/29/231999 (!) 151/103 -- -- 91 17 99 % -- -- 06/29/23 1935 (!) 153/110 36.4 ???C (97.5 ???F) Temporal 98 21 99 % 1.626 m (5' 4 ) 85 kg (187 lb 4.8 oz) 06/29/23 1900 (!) 144/102 -- -- 96 21 97 % -- -- Physical Examination: GENERAL: AOx3, in no acute distress. HEAD: Atraumatic, normocephalic. EYES: MIGUEL, EOMI. NECK: No JVD present. CARDIAC: RRR. No murmur, rubs, or gallops. RESPIRATORY: CTAB, no increased effort of breathing. ABDOMEN: Soft, nontender, nondistended. EXTREMITIES: No lower extremity edema, peripheral pulses are 2+ bilaterally. NEURO: No focal deficits Relevant Lab Results Encounter Date: 06/29/23 ECG 12 lead Result Value Ventricular Rate 89 Atrial Rate 89 [place] Interval 140 QRS DURATION 134 QT Interval 430 QTC CALCULATION(BAZETT) 523 P Theresa 17 R-Theresa -43 T Wave Theresa 27 Impression Normal sinus rhythm Possible Left atrial enlargement Left axis deviation Left bundle branch block Abnormal ECG When compared with ECG of 29-JUN-2023 21:15, No significant change was found Confirmed by Tierra DURAN, BARBARA Amin ([id number]) on 06/30/2023 1:00:29 PM Lab Results Component Value Date TROPONINI 0.00 06/30/2023 Transthoracic echo (TTE) complete Result Date: 06/30/2023 1 1 [facility] Heart Station [address] [id number] [phone] (fax) Echocardiogram-[facility] Name: LEANNE HIGGINS Study Date: 06/30/2023 01:00 PM B/P: 106 mmHg/74 mmHg HR: Date of : 1975 Location: [facility] Height: 64 in. Age: 48 year(s) Patient Room: 3184 Weight: 190 lb. Gender: Female Patient Status: InPt BSA: 1.91 m2 Indication: Chest Pain, Shortness of Breath, Congestive Heart Failure Examination: Echocardiogram (Complete), Lumason Contrast Image Quality: Adequate Patient Consent: Procedure explained to patient Exam Details Contrast: I.V. dose of Lumason Conclusions Left Ventricle: The left ventricle is severely enlarged. Global left ventricular systolic function is severely reduced. The calculat (more content not included)... Normal [facility] TROPONIN Ion 06-30-2023 Troponin I.cardiac [Mass/Vol] 0.00 ng/mL Normal 0.00-0.04 [facility] Comment on above: Performed By: #### L [id number] #### [facility] ([facility]) [address] [place] [address] 30on 06-29-2023 30 The patient is Moder ately Stable - Low risk of patient condition declining or worsening The patient's goals for the shift include The clinical goals for the shift include stable vs Problem: Pain - Adult Goal: Verbalizes/displays adequate comfort level or baseline comfort level Outcome: Progressing Problem: Safety - Adult Goal: Free from fall injury Outcome: Progressing Problem: Chronic Conditions and Co-morbidities Goal: Patient's chronic conditions and co-morbidity symptoms are monitored and maintained or improved Outcome: Progressing Normal [facility] B-TYPE NATRIURETIC PEPTIDEon 06-29-2023 Natriuretic peptide B (Bld) [Mass/Vol] 562 pg/mL High 0-100 [facility] Comment on above: Performed By: #### L [id number] #### [facility] ([facility]) [address] [place] [address] CBC WITH AUTO DIFFERENTIALon 06-29-2023 Basophils (Bld) [#/Vol] 0.03 10*3/uL Normal 0.00-0.20 [facility] Comment on above: Performed By: #### L [id number] #### [facility] ([facility]) [address] [place] [address] Basophils/100 WBC (Bld) 0.3 % Normal 0.0-1.0 [facility] Comment on above: Performed By: #### L [id number] #### [facility] ([facility]) [address] [place] [address] Eosinophils (Bld) [#/Vol] 0.15 10*3/uL Normal 0.00-0.50 [facility] Comment on above: Performed By: #### L [id number] #### [facility] ([facility]) [address] [place] [address] Eosinophils/100 WBC (Bld) 1.5 % Normal 0.0-6.0 [facility] Comment on above: Performed By: #### L [id number] #### [facility] ([facility]) [address] [place] [address] Erythrocyte distribution width (RBC) [Ratio] 14.6 % Normal 11.5-15.0 [facility] Comment on above: Performed By: #### L [id number] #### [facility] ([facility]) [address] [place] [address] ERYTHROCYTE MEAN CORPUSCULAR HEMOGLOBIN CONCENTRATION (G/DL) BY AUTOMATED 32.8 g/dL Normal 32.0-35.0 [facility] Comment on above: Performed By: #### L [id number] #### [facility] ([facility]) [address] [place] [address] Hematocrit (Bld) [Volume fraction] 41.2 % Normal 36.0-48.0 [facility] Comment on above: Performed By: #### L [id number] #### [facility] ([facility]) [address] [place] [address] Hemoglobin (Bld) [Mass/Vol] 13.5 g/dL Normal 12.0-15.0 [facility] Comment on above: Performed By: #### L [id number] #### [facility] ([facility]) [address] [place] [address] Immature granulocytes (Bld) [#/Vol] 0.04 10*3/uL Normal 0.00-0.20 [facility] Comment on above: Performed By: #### L [id number] #### [facility] ([facility]) [address] [place] [address] Immature granulocytes/100 WBC (Bld) 0.4 % Normal 0.0-1.0 [facility] Comment on above: Performed By: #### L [id number] #### [facility] ([facility]) [address] [place] [address] Lymphocytes (Bld) [#/Vol] 2.36 10*3/uL Normal 1.20-4.00 [facility] Comment on above: Performed By: #### L [id number] #### [facility] ([facility]) [address] [place] [address] Lymphocytes/100 WBC (Bld) 24.3 % Normal 20.0-45.0 [facility] Comment on above: Performed By: #### L [id number] #### [facility] ([facility]) [address] [place] [address] MCH (RBC) [Entitic mass] 28.0 pg Normal 27.0-33.0 [facility] Comment on above: Performed By: #### L [id number] #### [facility] ([facility]) [address] [place] [address] MCV (RBC) [Entitic vol] 85.5 fL Normal 82.0-98.0 [facility] Comment on above: Performed By: #### L [id number] #### [facility] ([facility]) [address] [place] [address] Monocytes (Bld) [#/Vol] 1.01 10*3/uL High 0.10-1.00 [facility] Comment on above: Performed By: #### L [id number] #### [facility] ([facility]) [address] [place] [address] Monocytes/100 WBC (Bld) 10.4 % Normal 5.0-12.0 [facility] Comment on above: Performed By: #### L [id number] #### [facility] (BEAKER) [address] [place] [address] Neutrophils (Bld) [#/Vol] 6.11 10*3/uL Normal 1.60-7.60 [facility] Comment on above: Performed By: #### L [id number] #### [facility] (BEAKER) [address] [place] [address] Neutrophils/100 WBC (Bld) 63.1 % Normal 40.0-72.0 [facility] Comment on above: Performed By: #### L [id number] #### [facility] (BEAKER) [address] [place] [address] NRBC (PER 100 WBCS) BY AUTOMATED COUNT 0.0 % Normal 0 [facility] Comment on above: Performed By: #### L [id number] #### [facility] ([facility]) [address] [place] [address] PLATELETS (10*3/UL) IN BLOOD AUTOMATED COUNT 285 10*3/uL Normal 150-400 [facility] Comment on above: Performed By: #### L [id number] #### [facility] ([facility]) [address] [place] [address] RBC (Bld) [#/Vol] 4.82 10*6/uL Normal 3.80-5.00 [facility] Comment on above: Performed By: #### L [id number] #### [facility] ([facility]) [address] [place] [address] WBC (Bld) [#/Vol] 9.70 10*3/uL Normal 4.00-10.60 [facility] Comment on above: Performed By: #### L [id number] #### [facility] ([facility]) [address] [place] [address] COMPREHENSIVE METABOLIC PANE Ethan 06-29-2023 Albumin [Mass/Vol] 4.0 g/dL Normal 3.5-5.[address] [facility] Comment on above: Performed By: #### L [id number] #### [facility] ([facility]) [address] [place] [address] ALP [Catalytic activity/Vol] 74 U/L Normal 34-104 [facility] Comment on above: Performed By: #### L [id number] #### [facility] ([facility]) [address] [place] [address] ALT [Catalytic activity/Vol] 68 U/L High 7-52 [facility] Comment on above: Performed By: #### L [id number] #### [facility] ([facility]) [address] [place] [address] Anion gap [Moles/Vol] 15 mmol/L Normal 7-20 [facility] Comment on above: Performed By: #### L [id number] #### [facility] (BEAKER) [address] [place] [address] AST [Catalytic activity/Vol] 41 U/L High 13-39 [facility] Comment on above: Performed By: #### L [id number] #### [facility] (BEAKER) [address] [place] [address] Bilirubin [Mass/Vol] 0.6 mg/dL Normal 0.3-1.0 [facility] Comment on above: Performed By: #### L [id number] #### [facility] (BEAKER) [address] [place] [address] Calcium [Mass/Vol] 9.3 mg/dL Normal 8.6-10.[address] [facility] Comment on above: Performed By: #### L [id number] #### [facility] ([facility]) [address] [place] [address] Chloride [Moles/Vol] 101 mmol/L Normal 98-107 [facility] Comment on above: Performed By: #### L [id number] #### [facility] (BEAKER) [address] [place] [address] CO2 [Moles/Vol] 24 mmol/L Normal 21-31 [facility] Comment on above: Performed By: #### L [id number] #### [facility] (BEAKER) [address] [place] [address] Creatinine [Mass/Vol] 0.82 mg/dL Normal 0.60-1.20 [facility] Comment on above: Performed By: #### L [id number] #### [facility] (BEAKER) [address] [place] [address] GLOMERULAR FILTRATION RATE ML/MIN/1.73 SQ M.PREDICTED 87.6 mL/min/1.73m*2 Normal >60.0 [facility] Comment on above: Result Comment: The [facility]???s estimated glomerular filtration rate (eGFR) will no longer include consideration of race in its calculation. The National Kid[employer] Foundation???s eGFR Task Force developed new recommendations for the estimation of the glomerular filtration rate in the [place] They recommend immediate implementation of the new equation refit without the race variable in all laboratories because the calculation does not include race. In addition to not including race in the calculation and reporting, it included diversity in its development, and has acceptable performance characteristics and potential consequences that do not disproportionately affect any one group of individuals. Performed By: #### L [id number] #### [facility] ([facility]) [address] [place] [address] Glucose [Mass/Vol] 104 mg/dL High 70-[address] [facility] Comment on above: Performed By: #### L [id number] #### [facility] ([facility]) [address] [place] [address] Potassium [Moles/Vol] 3.9 mmol/L Normal 3.5-5.1 [facility] Comment on above: Performed By: #### L [id number] #### [facility] ([facility]) [address] [place] [address] Protein [Mass/Vol] 6.6 g/dL Normal 6.0-8.[address] [facility] Comment on above: Performed By: #### L [id number] #### [facility] ([facility]) [address] [place] [address] Sodium [Moles/Vol] 136 mmol/L Normal 136-[address] [facility] Comment on above: Performed By: #### L [id number] #### [facility] ([facility]) [address] [place] [address] Urea nitrogen [Mass/Vol] 12 mg/dL Normal 7-25 [facility] Comment on above: Performed By: #### L [id number] #### [facility] ([facility]) [address] [place] [address] UREA NITROGEN/CREATININ E (MASS RATIO) IN SER/PLAS 14.6 Normal [facility] Comment on above: Performed By: #### L [id number] #### [facility] ([facility]) [address] [place] [address] HEMOGLOBIN A1Con 06-29-2023 Glucose [Mass/Vol] 97 mg/dL Normal [facility] Comment on above: Performed By: #### L [id number] #### [facility] ([facility]) [address] [place] [address] HbA1c (Bld) [Mass fraction] 5.0 % Normal 4.0-6.0 [facility] Comment on above: Performed By: #### L [id number] #### [facility] ([facility]) [address] [place] [address] LIPID PANELon 06-29-2023 CHOL/HDL 3.8 mg/dL Normal [facility] Comment on above: Performed By: #### L [id number] #### [facility] ([facility]) [address] [place] [address] Cholesterol [Mass/Vol] 176 mg/dL Normal 120-200 [facility] Comment on above: Performed By: #### L [id number] #### [facility] ([facility]) [address] [place] [address] Magnesium [Mass/Vol] 161 mg/dL High 40-149 [facility] Comment on above: Result Comment: TRIG LYCERIDE REFERENCE RANGE: 20 YEARS AND OLDER CARDIOVASCULAR RISK LESS THAN 150 mg/dL LOW RISK 150 TO 199 mg/dL BORDERLINE RISK 200 mg/dL AND GREATER HIGH RISK Performed By: #### L [id number] #### [facility] ([facility]) [address] [place] [address] Magnesium [Mass/Vol] 98 mg/dL Normal 0-160 [facility] Comment on above: Performed By: #### L [id number] #### [facility] ([facility]) [address] [place] [address] Magnesium [Mass/Vol] 46 mg/dL Normal 23-92 [facility] Comment on above: Performed By: #### L [id number] #### [facility] ([facility]) [address] [place] [address] NON HDL CHOL. (LDL+VLDL) 130 Normal [facility] Comment on above: Performed By: #### L [id number] #### [facility] ([facility]) [address] [place] [address] TOTAL VLDL-C 32 mg/dL Normal 0-40 [facility] Comment on above: Performed By: #### L [id number] #### [facility] ([facility]) [address] [place] [address] MAGNESIUMon 06-29-2023 Magnesium [Mass/Vol] 2.2 mg/dL Normal 1.9-2.7 [facility] Comment on above: Performed By: #### L [id number] #### [facility] ([facility]) [address] [place] [address] RESPIRATORY VIRUS PCR PANELo n 06-29-2023 ADENOVIRUS DETECTION BY PCR Not detected Normal Not Detected [facility] Comment on above: Order Comment: Testi ng methodology is a multiplexed nucleic acid test intended for the simultaneous qualitative detection and differentiation of nucleic acids from multiple viral and bacterial respiratory organisms in nasopharyngeal swabs (WAFER LINE WORKER). Performed By: #### L [id number] ####[facility] ([facility])[address] [place] [address] B. PARAPERTUSSIS DNA Not detected Normal Not Detected [facility] Comment on above: Order Comment: Testi ng methodology is a multiplexed nucleic acid test intended for the simultaneous qualitative detection and differentiation of nucleic acids from multiple viral and bacterial respiratory organisms in nasopharyngeal swabs (WAFER LINE WORKER). Performed By: #### L [id number] ####[facility] ([facility])[address] [place] [address] BORDETELLA PERTUSSIS DNA PRESENCE IN UNSPECIFIED SPECIMEN BY [place]* Not detected Normal Not Detected [facility] Comment on above: Order Comment: Testi ng methodology is a multiplexed nucleic acid test intended for the simultaneous qualitative detection and differentiation of nucleic acids from multiple viral and bacterial respiratory organisms in nasopharyngeal swabs (WAFER LINE WORKER). Performed By: #### L [id number] ####[facility] ([facility])[address] [place] [address] CHLAMYDOPHILA PNEUMONIAE Not detected Normal Not Detected [facility] Comment on above: Order Comment: Testi ng methodology is a multiplexed nucleic acid test intended for the simultaneous qualitative detection and differentiation of nucleic acids from multiple viral and bacterial respiratory organisms in nasopharyngeal swabs (WAFER LINE WORKER). Performed By: #### L [id number] ####[facility] ([facility])[address] [place] [address] CORONAVIRUS [id number] Not detected Normal Not Detected [facility] Comment on above: Order Comment: Testi ng methodology is a multiplexed nucleic acid test intended for the simultaneous qualitative detection and differentiation of nucleic acids from multiple viral and bacterial respiratory organisms in nasopharyngeal swabs (WAFER LINE WORKER). Performed By: #### L [id number] ####[facility] ([facility])[address] [place] [address] CORONAVIRUS [id number] Not detected Normal Not Detected [facility] Comment on above: Order Comment: Testi ng methodology is a multiplexed nucleic acid test intended for the simultaneous qualitative detection and differentiation of nucleic acids from multiple viral and bacterial respiratory organisms in nasopharyngeal swabs (WAFER LINE WORKER). Performed By: #### L [id number] ####[facility] ([facility])[address] [place] [address] CORONAVIRUS [id number] Not detected Normal Not Detected [facility] Comment on above: Order Comment: Testi ng methodology is a multiplexed nucleic acid test intended for the simultaneous qualitative detection and differentiation of nucleic acids from multiple viral and bacterial respiratory organisms in nasopharyngeal swabs (WAFER LINE WORKER). Performed By: #### L [id number] ####[facility] ([facility])[address] [place] [address] CORONAVIRUS [id number] Not detected Normal Not Detected [facility] Comment on above: Order Comment: Testi ng methodology is a multiplexed nucleic acid test intended for the simultaneous qualitative detection and differentiation of nucleic acids from multiple viral and bacterial respiratory organisms in nasopharyngeal swabs (WAFER LINE WORKER). Performed By: #### L [id number] ####[facility] ([facility])[address] [place] [address] HUMAN METAPNEUMOVIRUS Not detected Normal Not Detected [facility] Comment on above: Order Comment: Testi ng methodology is a multiplexed nucleic acid test intended for the simultaneous qualitative detection and differentiation of nucleic acids from multiple viral and bacterial respiratory organisms in nasopharyngeal swabs (WAFER LINE WORKER). Performed By: #### L [id number] ####[facility] ([facility])[address] [place] [address] HUMAN RHINOVIRUS+ENTEROV IRUS Not detected Normal Not Detected [facility] Comment on above: Order Comment: Testi ng methodology is a multiplexed nucleic acid test intended for the simultaneous qualitative detection and differentiation of nucleic acids from multiple viral and bacterial respiratory organisms in nasopharyngeal swabs (WAFER LINE WORKER). Performed By: #### L [id number] ####[facility] ([facility])[address] [place] [address] INFLUENZA A Not detected Normal Not Detected [facility] Comment on above: Order Comment: Testi ng methodology is a multiplexed nucleic acid test intended for the simultaneous qualitative detection and differentiation of nucleic acids from multiple viral and bacterial respiratory organisms in nasopharyngeal swabs (WAFER LINE WORKER). Performed By: #### L [id number] ####[facility] ([facility])[address] [place] [address] INFLUENZA B Not detected Normal Not Detected [facility] Comment on above: Order Comment: Testi ng methodology is a multiplexed nucleic acid test intended for the simultaneous qualitative detection and differentiation of nucleic acids from multiple viral and bacterial respiratory organisms in nasopharyngeal swabs (WAFER LINE WORKER). Performed By: #### L [id number] ####[facility] ([facility])[address] [place] [address] MYCOPLASMA PNEUMONIAE Not detected Normal Not Detected [facility] Comment on above: Order Comment: Testi ng methodology is a multiplexed nucleic acid test intended for the simultaneous qualitative detection and differentiation of nucleic acids from multiple viral and bacterial respiratory organisms in nasopharyngeal swabs (WAFER LINE WORKER). Performed By: #### L [id number] ####[facility] ([facility])[address] [place] [address] PARAINFLUENZA 1 Not detected Normal Not Detected [facility] Comment on above: Order Comment: Testi ng methodology is a multiplexed nucleic acid test intended for the simultaneous qualitative detection and differentiation of nucleic acids from multiple viral and bacterial respiratory organisms in nasopharyngeal swabs (WAFER LINE WORKER). Performed By: #### L [id number] ####[facility] ([facility])[address] [place] [address] PARAINFLUENZA 2 Not detected Normal Not Detected [facility] Comment on above: Order Comment: Testi ng methodology is a multiplexed nucleic acid test intended for the simultaneous qualitative detection and differentiation of nucleic acids from multiple viral and bacterial respiratory organisms in nasopharyngeal swabs (WAFER LINE WORKER). Performed By: #### L [id number] ####[facility] ([facility])[address] [place] [address] PARAINFLUENZA 3 Not detected Normal Not Detected [facility] Comment on above: Order Comment: Testi ng methodology is a multiplexed nucleic acid test intended for the simultaneous qualitative detection and differentiation of nucleic acids from multiple viral and bacterial respiratory organisms in nasopharyngeal swabs (WAFER LINE WORKER). Performed By: #### L [id number] ####[facility] ([facility])[address] [place] [address] PARAINFLUENZA 4 Not detected Normal Not Detected [facility] Comment on above: Order Comment: Testi ng methodology is a multiplexed nucleic acid test intended for the simultaneous qualitative detection and differentiation of nucleic acids from multiple viral and bacterial respiratory organisms in nasopharyngeal swabs (WAFER LINE WORKER). Performed By: #### L [id number] ####[facility] ([facility])[address] [place] [address] RESP SYNCYTIAL VIRUS Not detected Normal Not Detected [facility] Comment on above: Order Comment: Testi ng methodology is a multiplexed nucleic acid test intended for the simultaneous qualitative detection and differentiation of nucleic acids from multiple viral and bacterial respiratory organisms in nasopharyngeal swabs (WAFER LINE WORKER). Performed By: #### L [id number] ####[facility] ([facility])[address] [place] [address] SARS-CoV-2 (COVID-19) RNA WILLOW+probe Ql (Unsp spec) Not detected Normal Not Detected [facility] Comment on above: Order Comment: Testi ng methodology is a multiplexed nucleic acid test intended for the simultaneous qualitative detection and differentiation of nucleic acids from multiple viral and bacterial respiratory organisms in nasopharyngeal swabs (WAFER LINE WORKER). Performed By: #### L [id number] ####[facility] ([facility])[address] [place] [address] T4, FREEon 06-29-2023 THYROXINE (T4) FREE (NG/DL) IN SER/PLAS 0.72 ng/dL Normal 0.71-1.85 [facility] Comment on above: Performed By: #### L [id number] #### [facility] ([facility]) [address] [place] [address] TROPONIN Ion 06-29-2023 Troponin I.cardiac [Mass/Vol] 0.01 ng/mL Normal 0.00-0.04 [facility] Comment on above: Performed By: #### L [id number] #### [facility] ([facility]) [address] [place] [address] Troponin I.cardiac [Mass/Vol] 0.01 ng/mL Normal 0.00-0.04 [facility] Comment on above: Performed By: #### L [id number] #### [facility] ([facility]) [address] [place] [address] TSH3 REFLEX TO FT4on 024 THYROTROPIN (MIU/L) IN SER/PLAS BY DETECTION LIMIT <= 0.05 MIU/L 18.96 mIU/L High 0.34-5.60 [facility] Comment on above: Performed By: #### L [id number] #### [facility] ([facility]) [address] [place] [address] FREE T4on 05-28-2018 T4 free mass conc 1.07 ng/dL Normal 0.78-2.19 [facility] Comment on above: Performed By: #### F T4 #### [facility] [address] [place] [address] Alina Sarmiento PROF CHEM 8 (BAS METB)on Anion gap molar conc 13.5 mmol/L Normal [facility] Comment on above: Performed By: #### B MP, TSH #### [facility] [address] [address] Alina Guillermina Calcium mass conc 9.1 mg/dL Normal 8.4-10.2 [facility] Comment on above: Performed By: #### B MP, TSH #### [facility] [address] [address] Alina Guillermina Chloride molar conc 101 mmol/L Normal 98-107 [facility] Comment on above: Performed By: #### B MP, TSH #### [facility] [address] [address] Alina Guillermina CO2 molar conc 26.4 mmol/L Normal 22.0-30.0 [facility] Comment on above: Performed By: #### B DOYLE, TSH #### [facility] [address] [place] [address] Alina Guillermina Creatinine mass conc 0.81 mg/dL Normal 0.52-1.04 [facility] Comment on above: Performed By: #### B DOYLE, TSH #### [facility] [address] [place] [address] Alina Guillermina EGFR-AF [place] >60 Normal >=60 [facility] Comment on above: Performed By: #### B DOYLE, TSH #### [facility] [address] [place] [address] Alina Guillermina EGFR-NON AF [place] >60 Normal >=60 [facility] Comment on above: Performed By: #### B DOYLE, TSH #### [facility] [address] [place] [address] Alina Guillermina Glucose mass conc 86 mg/dL Normal 74-106 [facility] Comment on above: Performed By: #### B DYOLE, TSH #### [facility] [address] [place] [address] Alina Guillermina Potassium molar conc 3.9 mmol/L Normal 3.4-5.0 [facility] Comment on above: Performed By: #### B MP, TSH #### [facility] [address] [place] [address] Alina Guillermina Sodium molar conc 137 mmol/L Normal 137-145 The [facility] Comment on above: Performed By: #### B MP, TSH #### [facility] [address] [place] [address] Alina Guillermina Urea nitrogen mass conc 10.0 mg/dL Normal 7.0-17.0 [facility] Comment on above: Performed By: #### B MP, TSH #### [facility] [address] [place] [address] Alina Guillermina Urea nitrogen/Creatinin e mass ratio 12.3 mg/mg Normal [facility] Comment on above: Performed By: #### B MP, TSH #### [facility] [address] [place] [address] Alinafreda Sarmiento TSHon 05-28-2018 Thyrotropin Qn 2.953 uIU/mL Normal 0.470-4.680 The [facility] Comment on above: Performed By: #### B MP, TSH #### [facility] [address] [place] [address] Alina Guillermina Thyrotropin Qn SEE BELOW Normal The [facility] Comment on above: Result Comment: <0.3 4 UIU/ml HYPERTHYROID 0.34-5.60 UIU/ml EUTHYROID >5.60 UIU/ml HYPOTHYROID Performed By: #### B MP, TSH #### [facility] [address] [place] [address] Alinafreda Fausten PROF CHEM 8 (BAS METB)on Anion gap molar conc 7.5 mmol/L Normal [facility] Comment on above: Performed By: #### B MP #### [facility] [address] [place] [address] Alina Guillermina Calcium mass conc 10.2 mg/dL Normal 8.4-10.2 The [facility] Comment on above: Performed By: #### B MP #### [facility] [address] [place] [address] Alina Guillermina Chloride molar conc 103 mmol/L Normal 98-107 [facility] Comment on above: Performed By: #### B MP #### [facility] [address] [place] [address] Alina Guillermina CO2 molar conc 28.0 mmol/L Normal 22.0-30.0 The [facility] Comment on above: Performed By: #### B MP #### [facility] [address] [address] Alina Guillermina Creatinine mass conc 0.82 mg/dL Normal 0.52-1.04 [facility] Comment on above: Performed By: #### B MP #### [facility] [address] [address] Alina Guillermina EGFR-AF [place] >60 Normal >=60 The [facility] Comment on above: Performed By: #### B MP #### [facility] [address] [address] Alina Guillermina EGFR-NON AF [place] >60 Normal >=60 [facility] Comment on above: Performed By: #### B MP #### [facility] [address] [place] [address] Alina Guillermina Glucose mass conc 88 mg/dL Normal 74-106 [facility] Comment on above: Performed By: #### B MP #### [facility] [address] [place] [address] Alina Guillermina Potassium molar conc 3.9 mmol/L Normal 3.4-5.0 [facility] Comment on above: Performed By: #### B MP #### [facility] [address] [place] [address] Alina Guillermina Sodium molar conc 135 mmol/L Critically low 137-145 [facility] Comment on above: Performed By: #### B MP #### [facility] [address] [place] [address] Alina Guillermina Urea nitrogen mass conc 8.0 mg/dL Normal 7.0-17.0 [facility] Comment on above: Performed By: #### B MP #### [facility] [address] [place] [address] Alina Guillermina Urea nitrogen/Creatinin e mass ratio 10.3 mg/mg Normal [facility] Comment on above: Performed By: #### B MP #### [facility] [address] [address] Alina Guillermina Coding Summary.on 07-19-2017 Coding Summary. CODING DATE: 018 FINAL [facility] DSC STATUS: Home (Routine DC) PAYOR: Commercial Insurance APC DESCRIPTION 5164 Level 4 ENT Procedures ADMIT DX: REASON FOR VISIT DX: K11.23 Chronic sialoadenitis FINAL DX: PRINCIPAL: K11.23 Chronic sialoadenitis SECONDARY: I10 Essential (primary) hypertension E03.9 Hypothyroidism, unspecified I73.00 Raynaud's syndrome without gangrene PYMT PROC APC STAT DESCRIPTION DOCTOR NAME DATE 49838 5194 J1 Excision of lesion of Kiran PULIDO, Evon Silvestre. 06/29/2017 mucosa and submucosa, vestibule of mouth; with simple repair NOTE: The code number assigned matches the documented diagnosis and / or procedure in the patient's chart. However, the narrative phrase printed from the coding software may appear abbreviated, or result in slightly different terminology. Coded By: Christine Smallwood Date Saved: 07/19/2017 03:25 pm Normal [facility] MRI ANKLE RT WO CONon 2017 MRI ANKLE RT WO CON [address] [place] [address] Patient: LEANNE HIGGINS Exam Date: 07/12/2017 : 1975 Gender:F Ordering : ARIC AN Admission #: [id number] Family : Order #: [id number] CLICK HERE TO VIEW EXAM RADIOLOGY REPORT PROCEDURE: MRI ANKLE RIGHT WITHOUT CONTRAST COMPARISON: XR ANKLE RT MIN 3 VIEWS, 03/16/2017. INDICATIONS: Chronic right heel pain, no injury TECHNIQUE: A complete multi-planar examination was performed without contrast. FINDINGS: LATERAL LIGAMENTS AND SOFT TISSUE STRUCTURES TALOFIBULAR: Normal. CALCANEOFIBULAR: Normal. TIBIOFIBULAR: Normal. PERONEAL TENDONS: Normal. No subluxation, tendinopathy, or tear. MEDIAL LIGAMENTS AND SOFT TISSUE STRUCTURES DELTOID COMPLEX: Normal. SPRING LIGAMENT: Normal. TARSAL TUNNEL: Normal. FLEXORS: Normal. OTHER TENDONS EXTENSORS: Normal. ACHILLES: Normal. No surrounding abnormality. PLANTAR FASCIA: Mild T2 signal within the plantar fascia at its calcaneal attachment and within the adjacent musculature and fat. 5 mm calcaneal plantar spur. SINUS TARSI: Normal. No edema or synovitis to suggest sinus tarsi syndrome. BONES: Mild edema within the plantar aspect of the calcaneus. EFFUSIONS: None. No synovitis or loose bodies. OTHER: No other significant findings. CONCLUSION: 1. Findings are most consistent with plantar fasciitis and mild inflammation/edema within the adjacent structures. Dictated by: Jairon Rendon M.D. on 07/12/2017 at 16:12 Approved by: Jairon Rendon M.D. on 07/12/2017 at 16:26 Normal [facility] Operative Reporton 05--201 8 Operative Report Date of Surgery: 06/29/2017SURGEON: Evon Mendoza Jr., M.D.PRIMARY CARE PHYSICIAN: Kathy Bruce M.D.PREOPERATIVE DIAGNOSIS: Chronic sialoadenitis consistent with Sj gren'ssyndromePOSTOPERATIVE DIAGNOSIS: Chronic sialoadenitis consistent with Sj gren'ssyndromeOPERATION: Removal of lower lip minor salivary glands for definitivediagnosis of Sj gren's diseaseANESTHESIA: Lidocaine 1% with 1:100,000 EpinephrineCOMPLICATIONS: NoneFINDINGS: Grossly normal anatomyINDICATIONS: This 42 year old woman presented on referral from herrheumatologist to have removal of minor salivary glands performed in orderto make a definitive diagnosis of Sj gren's disease.PROCEDURE: The patient identified in the Holding Area and taken back tothe Operating Room where she was placed in the supine position. Lidocaine1% with 1:100,000 Epinephrine was injected near the midline of the innerlower lip. An incision was made longitudinally exposing several minorsalivary glands. At least six salivary glands were sharply dissected out ofthe mouth and sent for pathologic analysis in accordance with therheumatologist's recommendations. The wound was irrigated, reprepped withBetadine and closed with interrupted 5-0 Vicryl vertical mattress sutures.The patient was discharged home in good condition.Evon Mendoza Jr., M.D.lkrDictated: 07/05/2017 #[id number]: 07/05/2017 #[id number]: Ayush Sosa Jr., M.D. Normal [facility] Comment on above: Result Comment: Elec tronically Signed By: Evon Mendoza MD\.br\Date and Time Signed: 07/06/17 09:46 EDT Main OR Intraoperative Recor don 06-30-2017 Main OR Intraoperative Record IntraOp Document Type FT Summary Primary Physician: Evon Mendoza MD Finalized Date/Time: 06/30/17 12:43:58 Pt. Name: LEANNE HIGGINS Irasema Steven/Sex: 1975 Female Med Rec #: [id number] Physician: Evon Mendoza MD Financial #: [id number] Pt. Type: A Room/Bed: [address] [address] Admit/Disch: 06/29/17 11:24:00 - 06/29/17 15:35:00 Institution: Case Times FT Entry 1 Patient Times In Room 06/29/17 14:40:00 Out Room 06/29/17 15:08:00 Procedure Times Start 06/29/17 14:51:00 Stop 06/29/17 15:04:00 Anesthesia Times Last Modified By: Gadiel SAMPSON, CNOR, Gracia 06/29/17 15:09:11 General Comments: 06/30/17 CHART OPEN TO REVIEW AND SEND CHARGES. L GADIEL SAMPSON Case Attendance FT Entry 1 Entry 2 Entry 3 Case Attendee Evon Mendoza MD RN, Guillermina Huizar RN, Kim Thakkar Role Performed Surgeon - Primary Cut Filer - Primary Cut Filer - Primary Time In 06/29/17 14:47:00 06/29/17 14:40:00 06/29/17 14:40:00 Time Out 06/29/17 15:08:00 06/29/17 15:08:00 06/29/17 14:57:00 Procedure FROZEN SECTION(.), FROZEN SECTION(.), FROZEN SECTION(.), TONGUE LESION TONGUE LESION TONGUE LESION EXCISION(.) EXCISION(.) EXCISION(.) Comments Last Modified By: Riley SAMPSON, Guillermina Lin RN, Guillermina Russell RN 06/29/17 15:09:27 06/29/17 15:09:27 06/29/17 15:10:19 Entry 4 Case Attendee Shamar Corrales CST Role Performed Scrub - Primary Time In 06/29/17 14:40:00 Time Out 06/29/17 15:08:00 Procedure FROZEN SECTION(.), TONGUE LESION EXCISION(.) Comments eduard ca scrub student scrubbed for procedure Last Modified By: Guillermina Lin RN 06/29/17 15:09:27 Perioperative Protocols FT Pre-Care Text: Implements protective measures prior to operative or invasive procedure, confirms identity before the operative or invasive procedure, verifies operative procedure, surgical site, and laterality Entry 1 Procedure(s) FROZEN SECTION(.), Patient Identity Birthday, ID Band TONGUE LESION Verified (select at Check, Patient EXCISION(.) least 2): Participation Consents / H and P HandP, Surgery/Procedure Operative Site Present Verified Consent Marking Verified Surgical Site Yes Laterality Verified Yes Verified Procedure Verified Yes Availability Equipment, Medication Verified (If Applicable) Prep Dry n/a PreOp Antibiotic No Given Time Out Evon Mendoza MD, Time Out Complete 06/29/17 14:48:00 Participants Kim Huizar RN, Wilhelm CST, Benjamin Outcomes Met? Yes Last Modified By: Kim Huizar RN 06/29/17 14:50:51 Post-Care Text: The patient is free from signs and symptoms of injury caused by extraneous objects Allergy Information FT Pre-Care Text: Verifies allergies Entry 1 Allergies Reviewed? Yes Allergies Reviewed Self/Patient With Outcomes Met? Yes Last Modified By: Kim Huizar RN 06/29/17 14:36:14 Post-Care Text: The patient received appropriate medication(s) safely administered during the perioperative period Surgical Procedures FT Entry 1 Entry 2 Procedure Description Procedure FROZEN SECTION TONGUE LESION EXCISION Modifiers . . Surgeon Description LOWER LIP BIOPSY WITH FROZEN SECTION Primary Procedure Yes No Primary Surgeon Evon Mendoza MD, MD, Hilary H. Start 06/29/17 14:51:00 06/29/17 14:51:00 Stop 06/29/17 15:04:00 06/29/17 15:04:00 Anesthesia Type Local Local Surgical Service ENT ENT Wound Class 2 - Clean-Contaminated 2 - Clean-Contaminated Last Modified By: Guillermina Lin RN, RN, Karen M 06/29/17 15:09:30 06/29/17 15:09:30 General Case Data FT Pre-Care Text: Classifies surgical wound, implements aseptic technique, initiates traffic control Entry 1 Case Information OR OR 2 FT Case Level Level 1 Wound Class 2 - Clean-Contaminated Specialty ENT Preop Diagnosis SJOGRENS SYMNDROME Postop Diagnosis chronic serositis Outcomes Met? Yes Last Modified By: Gadiel SAMPSON, Maryann VICENTE 06/30/17 12:41:04 Post-Care Text: The patient is free from signs and symptoms of infection Skin Assessment (Pre Procedure) FT Pre-Care Text: Implements protective measures to prevent skin/ tissue injury due to thermal or mechanical sources Evaluates for signs and symptoms of physical injury to skin and tissue Entry 1 Skin Integrity Intact, [place], Warm, and Skin Abnormality No Dry Outcomes Met? Yes Last Modified By: Kim Huizar RN 06/29/17 14:54:24 Post-Care Text: The patient is free from signs and symptoms of injury caused by extraneous objects Patient Positioning FT Pre-Care Text: Identifies physical alterations that require additional precautions for procedure-specific positioning, verifies presence of prosthetics or corrective devices, positions the patient, evaluates the patient for signs and symptoms of injury as a result of positioning Entry 1 Procedure FROZEN SECTION(.), Additional patient positioned TONGUE LESION Information self, awake for EXCISION(.) procedure Body Position Supine Feet Uncrossed? Yes Left Arm Position Resting at Side Right Arm Position Resting at Side Left Leg Position Extended Right Leg Position Extended Positioning Device Safety Strap, Pillow Press Points Checked Yes Under Head Large By Guillermina Lin RN Outcomes Met? Yes Last Modified By: Kim Huizar RN 06/29/17 14:55:37 Post-Care Text: The patient is free from signs and symptoms of injury related to positioning Patient Care Devices FT Pre-Care Text: Implements protective measures to prevent skin/ tissue injury due to thermal or mechanical sources Entry 1 Entry 2 Entry 3 Equipment Type CAUTERY UNIT[F] HEADLIGHT[F] MONITOR CHARGE SURGERY [F] Equipment Number [id number] Equipment Setting Outcomes Met? Yes Yes Yes Last Modified By: Kim Huizar RN, RN, Emily A Coy RN, Emily A 06/29/17 11:46:59 06/29/17 11:46:59 06/29/17 11:46:59 Entry 4 Equipment Type MISTRAL FORCED AIR WARMING SYSTEM UNIT[F] Equipment Number [id number] Equipment Setting Outcomes Met? Yes Last Modified By: Kim Huizar RN 06/29/17 11:46:59 Post-Care Text: The patient is free from signs and symptoms of injury caused by extraneous objects Transport To OR FT Pre-Care Text: Transports according to individual needs. Evaluates for signs and symptoms of skin and tissue injury as a result of transfer or transport Entry 1 Via Cart By Guillermina Lin RN Safety Precautions Side Rails Up Outcomes Met? Yes Last Modified By: Kim Huizar RN 06/29/17 14:46:40 Post-Care Text: The patient is free from signs and symptoms of injury related to transfer/transport Cautery FT Pre-Care Text: Implements protective measures to prevent injury due to electrical sources, and evaluates for signs and symptoms of electrical injury Entry 1 ESU Identification ESU Settings Cut 10 Coag 10 ESU Grounding Pad Site Left Lower Leg Pre Pad Site Clear and Intact Condition Post Pad Site Clear and Intact Grounding Pad Guillermina Lin RN Condition Placed By Outcomes Met? Yes Last Modified By: Guillermina Lin RN 06/29/17 15:02:16 Post-Care Text: The patient if free from signs and symptoms of electrical injury Counts Verification FT Pre-Care Text: Performs required counts Entry 1 Entry 2 Procedure(s) FROZEN SECTION(.), FROZEN SECTION(.), TONGUE LESION TONGUE LESION EXCISION(.) EXCISION(.) Type Initial Final Items Sponges, Sharps Sponges, Sharps Status Correct Correct Time By Kim Huizar RN, Farris RN, Karen M, Wilhelm CST, Shamar Corrales CST, Shamar Outcomes Met? Yes Yes Last Modified By: Guillermina Lin RN, RN, Karen M 06/29/17 15:01:53 06/29/17 15:10:36 Post-Care Text: The patient is free from signs and symptoms of injury caused by extraneous objects Skin Prep FT Pre-Care Text: Performs skin preparations Entry 1 Procedure TONGUE LESION Prep Area mouth EXCISION(.) Prep Agents Betadine Solution Hair Removal By Evon Mendoza MD Outcomes Met? Yes Last Modified By: Guillermina Lin RN 06/29/17 15:03:37 Post-Care Text: The patient is free from signs and symptoms of infection Departure From OR FT Pre-Care Text: Transports according to individual needs. Evaluates for signs and symptoms of skin and tissue injury as a result of transfer or transport. Entry 1 Via Cart Safety Precautions Side Rails Up PostOp Destination Home Transported By Guillermina Lin RN Patient Status Stable Skin. Condition Intact, [place], Warm, and Dry Airway Maintenance Oxygen in Use? No Outcomes Met? Yes Last Modified By: Guillermina Lin RN 06/29/17 15:04:15 Post-Care Text: The patient is free from signs and symptoms of injury related to transfer/transport Medication Administration FT Pre-Care Text: Verifies allergies, administers prescribed medications and solutions, administers prescribed antibiotic therapy and immunizing agents as ordered, evaluates response to medications Administers prescribed medications and solutions Entry 1 Expiration Date Yes Outcomes Met? Yes Verified Last Modified By: Kim Huizar RN 06/29/17 11:47:18 Post-Care Text: The patient received appropriate medication(s) safely administered during the perioperative period For Jhaveri-Rai please see scanned medication reconcilliation form for medications used at the field during the procedure. Cultures and Specimens FT Pre-Care Text: Manages specimen handling and disposition Manages culture specimen collection Entry 1 Specimens Ordered Yes Specimen Disposition Other/See Comments Frozen Section Times FS Pathology 06/29/17 15:01:00 Notified Outcomes Met? Yes Last Modified By: Guillermina Lin RN 06/29/17 15:09:41 Post-Care Text: The patient is free from signs and symptoms of injury caused by extraneous objects The patient is free from signs and symptoms of infection General Comments: fresh specimen of salivary glands sent to lab in sterile saline. ADRIÁN Garza Temperature Control Entry 1 Temperature Control BLANKET MISTRAL AIR Quantity 1 Aid PLUS LOWER BODY [[id number]][F] Fluid/[place] [facility] Mistral warming system Setting HIGH/43 Body Site Lower anterior torso Last Modified By: Kim Huizar RN 06/29/17 11:47:44 Case Comments Finalized By: CINTHIA Castro RN, Lou Ann Document Signatures Signed By: Guillermina Lin RN 06/29/17 15:11 CINTHIA Castro RN, Lou Ann 06/30/17 12:43 Blank RN, Maryann VICENTE 06/30/17 12:43 [facility] Inpatient Patient Summaryon 06-29-2017 Inpatient Patient Summary [facility] Dis[facility] InstructionsPERSON INFORMATION Name: LEANNE HIGGINS PHYSICIANS Admitting Physician: Evon Mendoza MDAttending Physician: Evon Mendoza MD PCP: Car BRUCE MD Diagnosis: Chronic sialoadenitis Comment: PATIENT EDUCATION INFORMATIONInstructions:Medi cation Leaflets:Follow up:With: Address: When: Evon Mendoza Comments: Keep scheduled appointment MEDICATION LISTComment: [facility] Operative Reporton 8 Operative Report Patient: Liborio HIGGINS Age: 42 years Sex: Female : 1975 Associated Diagnoses: None Author: Evon Mendoza MD Postoperative Information Procedure: R/O lower lip minor salivary glands Preoperative Diagnosis: Chronic sialoadenitis (ZTM15-RT K11.23, Working, Medical). Postoperative Diagnosis: Chronic sialoadenitis (LFP18-FT K11.23, Discharge, Medical). Performed by: Evon Mendoza MD. Findings: Grossly normal anatomy. Specimens Removed: Minor salivary glands x 6. Estimated Blood Loss: 2 ml. Medications Complications: None. [facility] Comment on above: Result Comment: Elec tronically Signed By: Evon Mendoza MD\.br\Date and Time Signed: 06/29/17 15:20 EDT Patient Education - Texton 0 06-29-2017 Patient Education - Text [facility] SURGICAL PATHOLOGYon 018 SURGICAL PATHOLOGY Specimen #: [id number] Physician: EVON MENDOZA M.D. FINAL DIAGNOSISMinor salivary gland, biopsies (A, B) - Minor salivary gland tissue with mild non-specific chronic inflammation. - Negative for neoplasm. - See comment.APH 07/06/2017COMMENTThe biopsies demonstrate only mild, non-specific chronic inflammation thatdoes not reach the criteria for a lymphocytic focus (i.e. focus score = 0). Although this biopsy is not diagnostic for Sj?gren syndrome, correlationwith clinical findings and additional laboratory data is still recommended. There is no evidence of storiform fibrosis or obliterative phlebitis. Immunohistochemistry for IgG4 was performed per physician request and it isnegative. CD138 highlights occasional plasma cells.Laboratory Developed Test (LDT) Disclaimer:Positive and negative controls stain appropriately. Performancecharacteristics of immunohistochemical, immunofluorescent and chromogenicin-situ hybridization tests have been determined by [facility] Pathology and Laboratory Medicine [place] ([facility] [place]) yvrose manner consistent with CLIA requirements. One or more of these tests havenot been cleared or approved by the FDA. RT-PLKS is regulated under CLIA asqualified to perform high-complexity testing. These tests are used forclinical purposes. They should not be regarded as investigational or forresearch.Morris Hyde M.D.(Electronic Signature) SPECIME N SUBMITTEDA: MINOR SALIVARY GLAND, BIOPSY B: MINOR SALIVARY GLAND, BIOPSY CLINICAL DATATWO CONTAINERS (ONE FRESH IN SALINE, ONE IN FORMALIN)FRESH ONE FOR IGG4, STUDY PER DR'S REQUESTFLUORESCENT STUDY?R/O SJOGRENS SYNDROME GROSS DESCRIPTIONA. Received in saline are three segments of faulkner, soft tissue aggregatingto 0.6 x 0.3 x 0.3 cm. Totally submitted in formalin in one cassette.Gross examination performed at [facility], [facility], [place] [address]SSW 07/05/2017B. Received in formalin labeled as minor salivary gland biopsy consistsof four pieces of pink-faulkner soft tissue aggregating to 0.6 x 0.5 x 0.2 cm.The entire specimen is submitted in cassette B1. Gross examination performed at [facility], [address] [place] [address],[place] [address] QUIN/johnson 06/29/2017 of Report: 07/06/2017Date of Procedure: 06/29/2017Date of Receipt: 06/29/2017Submitted by: EVON MENDOZA M.D.Location: Diagnostic interpretation performed at [facility], [address] [place] [address]. Normal [facility] Comment on above: Performed By: #### S ####See report for performing lab information. Coding Summary.on 06-23-2017 Coding Summary. CODING DATE: [address] [facility] STATUS: Home (Routine DC) PAYOR: Commercial Insurance APC DESCRIPTION 5733 Level 3 Minor Procedures ADMIT DX: REASON FOR VISIT DX: Z01.818 Encounter for other preprocedural examination FINAL DX: PRINCIPAL: Z01.818 Encounter for other preprocedural examination SECONDARY: PYMT PROC APC STAT DESCRIPTION DOCTOR NAME DATE NOTE: The code number assigned matches the documented diagnosis and / or procedure in the patient's chart. However, the narrative phrase printed from the coding software may appear abbreviated, or result in slightly different terminology. Coded By: Fern Ferris Date Saved: 06/23/2017 11:02 am Normal [facility] Auto Diffon 06-22-2017 Basophils Auto #/vol (Bld) 0.0 E9/L Normal 0.0-0.2 [facility] Comment on above: Order Comment: Order Added by Discern Expert. Performed By: #### 2 [id number] ####[facility] [address] [place] [address] Basophils Auto #/vol (Bld) 0.3 % Normal 0.0-2.0 [facility] Comment on above: Order Comment: Order Added by Discern Expert. Performed By: #### 2 [id number], [id number] ####[facility] [address] [place] [address] Eosinophils 0.1 E9/L Normal 0.0-0.5 [facility] Comment on above: Order Comment: Order Added by Discern Expert. Performed By: #### 2 [id number] ####[facility] [address] [place] [address] Eosinophils/100 leukocytes 0.9 % Normal 0.0-8.0 [facility] Comment on above: Order Comment: Order Added by Discern Expert. Performed By: #### 2 [id number], [id number] ####[address] [place] [address] Lymphocytes 1.7 E9/L Normal 1.0-4.0 [facility] Comment on above: Order Comment: Order Added by Henok Expert. Performed By: #### 2 [id number], [id number], [id number] ####[address] [address] Lymphocytes/100 leukocytes 27.2 % Normal 14.0-50.0 [facility] Comment on above: Order Comment: Order Added by Henok Expert. Performed By: #### 2 [id number], [id number], [id number] ####[address] [place] [address] Monocytes 0.7 E9/L Normal 0.2-1.0 [facility] Comment on above: Order Comment: Order Added by Henok Expert. Performed By: #### 2 [id number], [id number], [id number] ####[address] [place] [address] Monocytes/100 leukocytes 10.4 % Normal 4.0-14.0 [facility] Comment on above: Order Comment: Order Added by Discern Expert. Performed By: #### 2 [id number], [id number], [id number] ####[facility] [address] [place] [address] Neutrophils 3.8 E9/L Normal 2.0-7.5 [facility] Comment on above: Order Comment: Order Added by Discern Expert. Performed By: #### 2 720482, [id number], [id number] ####[facility] [address] [place] [address] Neutrophils/100 leukocytes 61.2 % Normal 36.0-75.0 [facility] Comment on above: Order Comment: Order Added by Discern Expert. Performed By: #### 2 [id number], [id number], [id number] ####[facility] [address] [place] [address] BUNon 06-22-2017 Urea nitrogen 10 mg/dL Normal 5-21 [facility] Comment on above: Performed By: #### 2 066200, 6111281, [id number], [id number] ####[address] [address] CBC w/ Auto Diffon 8 Erythrocyte distribution width Auto Ratio (RBC) 13.4 % Normal 10.9-14.2 [facility] Comment on above: Performed By: #### 2 737607, 9723001, 11546086 ####[address] [address] Erythrocytes (RBC) 4.7 E12/L Normal 4.3-5.9 [facility] Comment on above: Performed By: #### 2 671686, 3772943, [id number] ####[address] [place] [address] Hematocrit (HCT) 38.7 % Normal 34.0-46.0 [facility] Comment on above: Performed By: #### 2 897821, 6661182, [id number] ####[facility] [address] [place] [address] Hemoglobin mass conc (Bld) 13.5 g/dL Normal 12.0-16.0 [facility] Comment on above: Performed By: #### 2 718425, 3334890, [id number] ####[address] [place] [address] MCH 29.0 pg Normal 27.0-34.0 [facility] Comment on above: Performed By: #### 2 756697, 6891284, 23721183 ####[facility] [address] [place] [address] MCHC mass conc (RBC) 34.9 g/dL Normal 31.4-39.3 [facility] Comment on above: Performed By: #### 2 273970, 2682808, [id number] ####[address] [address] MCV 83.2 fL Normal 80.0-100.0 [facility] Comment on above: Performed By: #### 2 892680, 0475394, [id number] ####[id number] Platelet mean volume (PMV) 9.9 fL Normal 6.4-10.8 [facility] Comment on above: Performed By: #### 2 568290, 0411850, [id number] ####[address] [address] Platelets 206.0 E9/L Normal 150.0-500.0 [facility] Comment on above: Performed By: #### 2 395559, 6510550, [id number] ####[address] [address] WBC (Leukocytes) 6.3 E9/L Normal 4.0-11.0 [facility] Comment on above: Performed By: #### 2 973430, 4544539, 22650766 ####[address] [address] Creatinineon 06-22-2017 Creatinine 0.9 mg/dL Normal 0.5-1.3 [facility] Comment on above: Performed By: #### 2 202880, 1080988, [id number], 0140977 ####[facility] [address] [place] [address] Lyteson 06-22-2017 Anion gap 11 mmol/L Normal 6-16 [facility] Comment on above: Performed By: #### 2 288266, 2389546, [id number], 3571556 ####[facility] [address] [place] [address] Chloride 104 mmol/L Normal 101-111 [facility] Comment on above: Performed By: #### 2 389814, 7110063, 63429499, 9992127 ####[facility] [address] [place] [address] CO2 26 mmol/L Normal 21-31 [facility] Comment on above: Performed By: #### 2 006066, 4770323, 64300283, 7555738 ####[facility] [address] [place] [address] Potassium molar conc 4.0 mmol/L Normal 3.5-5.3 [facility] Comment on above: Performed By: #### 2 738374, 1104435, [id number], 9567738 ####[facility] [address] [place] [address] Sodium 137 mmol/L Normal 135-145 [facility] Comment on above: Performed By: #### 2 054349, 0203647, [id number], 3432200 ####[facility] [address] [place] [address] PT & PTTon 06-22-2017 aPTT 27.7 second(s) Normal 25.1-36.5 [place] Comment on above: Result Comment: Hepa rin therapeutic range (represented by Anti-Factor Xa activity of 0.2 - 0.4 U/mL) corresponds to PTT of 53.9 - 87.4 sec. Performed By: #### 2 330469, 0762359, [id number] ####[facility] [address] [place] [address] INR Coag RelTime (PPP) 1.1 {INR} Invalid Interpretation Code [facility] Comment on above: Result Comment: INR results are specifically intended to assess patients stabilized on long-term Anticoagulation therapy suggested INR?s ?Less Intensive Anticoagulation? 2.0 ? 3.0Conventional Range 3.0 ? 4.5 Performed By: #### 2 374979, 5383387, [id number] ####[facility] [address] [place] [address] Prothrombin time (PT) Coag time (PPP) 12.5 second(s) Normal 10.2-12.9 [facility] Comment on above: Performed By: #### 2 465413, 9210445, [id number] ####[facility] [address] [place] [address] eGFRon 06-22-2017 eGFR (black) mL/min/{1.73_m2} Normal >=59 [facility] Comment on above: Order Comment: Order added by Discern Expert. Result Comment: eGFR is race adjusted. AA=. Performed By: #### 2 909002, 6741735, 02968765, [id number] ####[facility] [place] [address] eGFR (non-black) mL/min/{1.73_m2} Normal >=59 [facility] Comment on above: Order Comment: Order added by Discern Expert. Result Comment: Team [employer] Driver stefano kidney disease could be indicated at eGFR's of less than 60 mL/min/1.73m2. Kidney failure is indicated at less than 15 mL/min/1.73m2. Performed By: #### 2 712602, 7956009, [id number], 8098592 ####[facility] [address] [place] [address] Encounters Encounter Date Encounter Type Care Provider Facility Start: 10-09-2023 End: 10-09-2023 ambulatory [facility] Start: 07-25-2023 End: 07-25-2023 ambulatory [facility] Start: 07-10-2023 End: 07-10-2023 ambulatory [facility] Start: 07-02-2023 Letter encounter Kathy Bruce MD Work Phone: [facility] Start: 06-30-2023 Evaluation and manag ement of inpatient MARIELLA HORANI [facility] Start: 06-29-2023 End: 07-03-2023 Evaluation and management of inpatient PAULA CHANG [facility] Start: 06-26-2022 Letter encounter Kathy Bruce MD Work Phone: [facility] Start: 12-28-2021 Letter encounter Kathy Bruce MD Work Phone: [facility] Start: 06-07-2018 Encounter for genera l adult medical examination without abnormal findings [facility] Start: 05-28-2018 End: 05-29-2018 Patient encounter procedure KATHY BRUCE Facility:[facility] Start: 08-08-2017 End: 08-08-2017 [facility] Start: 08-03-2017 Encounter for preprocedural cardiovascular examination [facility] Start: 08-03-2017 Encounter for preprocedural laboratory examination [facility] Start: 08-01-2017 End: 08-02-2017 Patient encounter procedure [facility] Facility:[facility] Start: 07-12-2017 End: 07-13-2017 Patient encounter procedure [facility] Facility: Start: 06-29-2017 End: 06-29-2017 Ambulatory Evon Mendoza Facility:[facility] Start: 06-22-2017 End: 06-23-2017 Ambulatory Evon Mendoza Facility:[facility] Encounter for genera l adult medical examination without abnormal findings [facility] Encounter for preprocedural cardiovascular examination [facility] Plan of Treatment Date Care Activity Detail Author Start: 2024 Shingles (RZV) Vacci ne (1 of 2) Shingles (RZV) Vaccine (1 of 2) [facility] Start: 10-28-2022 COVID-19 Vaccine ( season) COVID-19 Vaccine ( season) [facility] Start: 11-27-2021 Influenza vaccination Influenza Vacc ine (#1) [facility] Start: 07-23-2020 COVID-19 Vaccine (3 - Booster for Pfizer series) COVID-19 Vaccine (3 - Booster for Pfizer series) [facility] Start: 2019 Cholesterol [Mass/vo lume] in Serum or Plasma [facility] Start: 2019 Screening for malign ant neoplasm of colon [facility] Start: 2014 Screening for malign ant neoplasm of breast Mammography [facility] Start: 1995 Screening for malign ant neoplasm of cervix Pap Smear [facility] Start: 1993 Hepatitis A (HAV) Va ccine (optional start 19+ years) Hepatitis A (HAV) Vaccine (optional start 19+ years) [facility] Start: 1992 Hepatitis C screening Hepatitis C An tibody [facility] Start: 1992 Tetanus + diphtheria + acellular pertussis vaccine (product) Tdap Booster [facility] Start: 1989 HIV screening HIV Test [facility] Start: 1974 Hepatitis B vaccination Hepati tis B (HBV) Vaccine (1 of 3 - 3-dose series) [facility] Start: 1974 Screening for malign ant neoplasm of colon Colonoscopy [facility] Payers Date Payer Category Payer Private Health Insurance 1975 Unknown [id number] [id number] 1975 Unknown [id number] [id number] 1974 Unknown [id number] [id number] 1974 Unknown [id number] [id number] [id number] 1960 Private Health Insurance [id number] 1959 Private Health Insurance [id number] 1959 Private Health Insurance [id number] Social History Date Type Detail Facility Start: 04-06-2016 Tobacco smoking status NHIS Never sm oked tobacco [facility] Start: 04-06-2016 Tobacco use and exposure Smokeless t obacco non-user [facility] Start: 1975 Sex Assigned At [facility] Start: 10-11-2017 History of Social function [facility] Start: 10-11-2017 Tobacco use panel [facility] Clinical Notes 06-29-2023 to 10-09-2023 Note Date & Type Note Facility 10-09-2023 Note [facility] Cardiology Clinic Note Chief Complaint: Patient here for 3 mo follow up CHF, NICM, and echo performed last week. Aspirin and atorvastatin were stopped at last apt in June 2023, but she didn't know if she was supposed to stop them cold turkey or not. She's still been taking them. Says since she's started Farxiga she's had more LE edema and fatigue. Says her BP at home has not been over 130 systoic. HPI: Leanne Higgins is a 48 y.o. female With a history of presumed nonischemic cardiomyopathy here in routine follow-up Doing well from a surgical standpoint. No chest pain, no shortness of breath, no orthopnea, no paroxysmal external dyspnea, no significant lower extremity edema. Cardiology ROS: Review of Systems Constitutional: Positive for malaise/fatigue. Cardiovascular: Positive for leg swelling. All other systems reviewed and are negative. Past Medical History She has a past medical history of CHF (congestive heart failure) (CMS/HCC) and Hyperlipidemia. Surgical History She has a past surgical history that includes Cardiac catheterization; Plantar fascia release; Knee arthroscopy w/ laser; section, classic; Hysterectomy; Cholecystectomy; and Eye surgery. Social History She reports that she has never smoked. She has been exposed to tobacco smoke. She has never used smokeless tobacco. She reports that she does not currently use alcohol. No history on file for drug use. Family History Family History Problem Relation Name Age of Onset Diabetes Father Allergies Patient has no known allergies. Medications Current Outpatient Medications: aspirin 81 mg EC tablet, Take 81 mg by mouth in the morning., Disp: , Rfl: atorvastatin (Lipitor) 20 mg tablet, Take 1 tablet (20 mg) by mouth at bedtime., Disp: 30 tablet, Rfl: 11 dapagliflozin propanediol (Farxiga) 10 mg, Take 1 tablet (10 mg) by mouth in the morning., Disp: 30 tablet, Rfl: 6 levothyroxine (Synthroid, Levoxyl) 50 mcg tablet, Take 1 tablet (50 mcg) by mouth before breakfast., Disp: 30 tablet, Rfl: 0 metoprolol succinate XL (Toprol-XL) 25 mg 24 hr tablet, Take 1 tablet (25 mg) by mouth in the morning. Do not crush or chew., Disp: 30 tablet, Rfl: 6 sacubitril-valsartan (Entresto) 24-26 mg tablet, Take 1 tablet by mouth in the morning and at bedtime. First dose of Entresto is 12 hours after final dose of Dovan/Valsartan. Never take both medicines together., Disp: 60 tablet, Rfl: 12 spironolactone (Aldactone) 25 mg tablet, Start by taking 1/2 tablet daily, and after a week try 1 whole tablet but if this makes you dizzy, go back to 1/2 tablet. (Patient taking differently: Take 25 mg by mouth once daily as directed. Start by taking 1/2 tablet daily, and after a week try 1 whole tablet but if this makes you dizzy, go back to 1/2 tablet.), Disp: 30 tablet, Rfl: 11 valsartan (Diovan) 80 mg tablet, Take 1 tablet (80 mg) by mouth every 12 (twelve) hours. (Patient not taking: Reported on 07/25/2023), Disp: 60 tablet, Rfl: 0 Last Recorded Vitals BP 151/89 (BP Location: Left arm, Patient Position: Sitting) Pulse 90 Ht 1.6 m (5' 3 ) Wt 82.6 kg (182 lb) SpO2 96% BMI 32.24 kg/m??? Physical Examination: GENERAL: alert and oriented x3, well developed, in no acute distress. HEAD: atraumatic, normocephalic. EYES: MIGUEL, EOMI. NECK: trachea midline, no JVD present, no carotid bruits present. CARDIAC: S1, S2 present. RRR. No murmur, rubs, or gallops. RESPIRATORY: CTAB, no increased effort of breathing, no rales, rhonchi, or wheezing. ABDOMEN: soft, nontender, nondistended. EXTREMITIES: no lower extremity edema, peripheral pulses are 2+ bilaterally. No rash/skin discoloration present. NEURO: strength/sensation equal and symmetric in bilateral upper and lower extremities. PSYCH: appropriate mood, affect, and judgement. [facility] Name: LEANNE HIGGINS Study Date: 06/30/2023 01:00 PM B/P: 106 mmHg/74 mmHg HR: Date of : 1975 Location: [facility] Height: 64 in. Age: 48 year(s) Patient Room : 3184 Weight: 190 lb. Gender: Female Patient Status: InPt BSA: 1.91 m2 Indication: Chest Pain, Shortness of Breath, Congestive Heart Failure Examination: Echocardiogram (Complete), Lumason Contrast Image Quality: Adequate Patient Consent: Procedure explained to patient s p @ c 3 Exam Details Contrast: I.V. dose of Lumason Conclusions Left Ventricle: The left ventricle is severely enlarged. Global left ventricular systolic function is severely reduced. The calculated Biplane EF is 13 %. The EF is 20 % visually. Left ventricular wall thickness is normal. Regional wall motion abnormalities (see diagram). Grade 1, mild diastolic dysfunction (abnormal relaxation). Eccentric left ventricular hypertrophy. Right Ventricle: The right ventricle is normal in size. Right ventricular systolic function appears reduced. Doppler studies suggest yun (more content not included)... [facility] 07-25-2023 Note [facility] Cardiology Clinic Note Chief Complaint: Patient here for follow up [facility] for new onset systolic and diastolic heart failure. Had heart cath on 07/[address] Floyd. Denies chest pain, but still gets SOB with stairs. C/o right wrist pain from access site during cath. HPI: Leanne Higgins is a 48 y.o. female Final Discharge Diagnosis: New acute onset systolic and diastolic heart failure, NYHA class I Hypothyroidism Admission Diagnosis: Acute systolic heart failure (CMS/HCC) [I50.21] Hospital course: Leanne Higgins is a 48 y.o. female without significant PMHx due to no PCP followup who presented with weeks of worsening SOB and productive greenish cough. 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 She endorses PND, Zamudio and some LE edema, which have all since improved. At [facility], CXR showed cardiac enlargement, CTA chest showed diffused ground glass with pleural effusion, pro-BNP >3000, ECHO 25%-30% (new), and she was transferred to [facility] for potential cardiac catheterization. TSH 19, normal free T4, A1c 5.0%, LDL 98, TG 161. Patient seen by cardiology and initially was receiving Lasix. Cardiac cath done today and showed: Normal right heart catheterization and normal coronary angiogram. PCWP of 5 and normal CO/CI. Repeat Echo showed Ef in the range of 13-20% with G1DD. Lipid panel showed: CH of 176 and LDL of 98 Patient during hospital stay had her thyrid check and came back with TSH of 18.96 with normal low free T4 of 0.72 and started on Synthroid She is being discharged today and to F/U with PCP in 1 week and with cardiology in 1-2 weeks. N.B: Coxsackie B virus Ab and Enterovirus PCR pending Also Anti-Hollie Ab, Sjogren's, anti dsDNA and GERI pending UPDATE 07/25/2023 Generally doing okay apart from soreness and tenderness over the right forearm at the site of the cardiac catheterization Denies chest pain, shortness of breath is stable if not better, no orthopnea, no paroxysmal external dyspnea, no lower extremity edema Saw rheumatology many years ago Is not currently seeing an community health advisor Used to drink but not heavily prior to this episode Cardiology ROS: Review of Systems Cardiovascular: Positive for dyspnea on exertion and leg swelling. All other systems reviewed and are negative. Past Medical History She has no past medical history on file. Surgical History She has no past surgical history on file. Social History She reports that she has never smoked. She has been exposed to tobacco smoke. She has never used smokeless tobacco. No history on file for alcohol use and drug use. Family History No family history on file. Allergies Patient has no known allergies. Medications Current Outpatient Medications: atorvastatin (Lipitor) 20 mg tablet, Take 1 tablet (20 mg) by mouth at bedtime., Disp: 30 tablet, Rfl: 11 dapagliflozin propanediol (Farxiga) 10 mg, Take 1 tablet (10 mg) by mouth in the morning., Disp: 30 tablet, Rfl: 6 levothyroxine (Synthroid, Levoxyl) 50 mcg tablet, Take 1 tablet (50 mcg) by mouth before breakfast., Disp: 30 tablet, Rfl: 0 metoprolol succinate XL (Toprol-XL) 25 mg 24 hr tablet, Take 1 tablet (25 mg) by mouth in the morning. Do not crush or chew., Disp: 30 tablet, Rfl: 6 sacubitril-valsartan (Entresto) 24-26 mg tablet, Take 1 tablet by mouth in the morning and at bedtime. First dose of Entresto is 12 hours after final dose of Dovan/Valsartan. Never take both medicines together., Disp: 60 tablet, Rfl: 12 spironolactone (Aldactone) 25 mg tablet, Start by taking 1/2 tablet daily, and after a week try 1 whole tablet but if this makes you dizzy, go back to 1/2 tablet., Disp: 30 tablet, Rfl: 11 valsartan (Diovan) 80 mg tablet, Take 1 tablet (80 mg) by mouth every 12 (twelve) hours., Disp: 60 tablet, Rfl: 0 Last Recorded Vitals BP 128/76 (BP Location: Left arm, Patient Position: Sitting) Pulse 71 Ht 1.6 m (5' 3 ) Wt 83.9 kg (185 lb) LMP (LMP Unknown) SpO2 97% BMI 32.77 kg/m??? Physical Examination: GENERAL: alert and oriented x3, well developed, in no acute distress. HEAD: atraumatic, normocephalic. EYES: MIGUEL, EOMI. NECK: trachea midline, no JVD present, no carotid bruits present. CARDIAC: S1, S2 present. RRR. No murmur, rubs, or gallops. RESPIRATORY: CTAB, no increased effort of breathing, no rales, rhonchi, or wheezing. ABDOMEN: soft, nontender, nondistended. EXTREMITIES: no lower extremity edema, peripheral pulses are 2+ bilaterally. No rash/skin discoloration present. NEURO: strength/sensation equal and symmetric in bilateral upper and lower extremities. PSYCH: appropriate mood, affect, and judgement. [facility]ogram-[facility] Name: LEANNE HIGGINS Study Date: 06/30/2023 01:00 PM B/P: 106 mmHg/74 mmHg HR: Date of : 1975 Location: [facility] Height: 64 in. Age: 48 year(s) Patient Room : 3184 Weight: 190 lb. Gend (more content not included)... [facility] 07-10-2023 Note [facility] CARDIOLOGY PROGR ESS NOTE HVC HPI: Leanne Higgins is a 48 y.o. female with telemed FU after hospitalization for HFrEF HPI PMH: Leanne Higgins is a 48 y.o. 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 June admission after 5 weeks of URI symptoms found acute systolic heart failure with EF 13-20%. [facility] had normal findings, suggesting viral cardiomyopathy. 06/29/23 transferred from with c/o 5 weeks of worsening SOB and productive greenish cough. 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 She endorses PND, ZAMUDIO and some LE edema, which have all since improved. At [facility], CXR showed cardiac enlargement, CTA chest showed diffused ground glass with pleural effusion, pro-BNP >3000, ECHO 25%-30% (new), and she was transferred to [facility] for potential cardiac catheterization. TSH 19, normal free T4, A1c 5.0%, LDL 98, TG 161. Echo here at [facility] found EF 13-20% with mild LVDD and eccentric LV hypertrophy, normal RV size and funciton. She was diuresed over the weekend starting GDMT. 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 She discharged on new Metoprolol XL, Valsartan, and Farxiga, with new levothyroxine and low dose Atorvastatin. 07/10/23 TELEMED FU: today patient says that was quite fatigued first couple day, but now more energy. Had significant bruising of right arm, now improved and yellow. Home weights 187# and stable. Home BP 114/82 with HR 73. Maintaining fluid and sodium restriction. No positional lightheadedness, palpitations, racing heart beats, syncope or near syncope, orthopnea, PND, GI or other bleeding. Reviewed hospital findings with patient Plan: No changes with current medications which were just recently started and refilled. Recheck echo after 1-3 months (to be determined) ongoing home heart failure monitoring reviewed. Date of Telehealth Visit: 07/10/23 The patient was notified that using 3rd democrat telecommunication application (e.g., [employer]) is not HIPPA compliant and may carry some privacy risks. Yes The visit was conducted [id number] with the use of audio and video technology [employer] between patient and provider for a virtual visit. Verbal consent to provide and bill this service was obtained on 07/10/23 . No signature was obtained due to the COVID-19 pandemic. Patient Location: Patient Home I spent 35 minutes of total time on the day of the visit. This time was spent preparing for the visit, obtaining and reviewing any outside history/data, taking a history, performing an exam/evaluation, counseling and educating patient/family about the diagnosis and plan, performing medical decision making, referring to and communicating with other health care referrals, independently interpreting results and documenting in the EMR, and coordinating care. Please see the additional documentation in this note for specific details. Assessment/Plan Leanne Higgins is a 48 y.o. 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 June admission after weeks of URI symptoms found acute systolic heart failure with EF 13-20%. [facility] had normal findings, suggesting viral cardiomyopathy. 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 LBBB on initial EKG Hypothyroidism, unknown etiology, newly diagnosed TSH 19 on admission Started Levothyroxine 50mcg ever yday Recent URI, likely viral, with productive cough RPP negative, Covid/Flu negative History of positive GERI History of SICCA symptoms History of Raynauds Per last rheumatology note on file (09/2017): salivary glandn biopsy not supportive of Sjogren's, possibly a lupus suspect , possible Raynaud's , her anti-DNA negative F/u rheum workup PLAN: --today appears euvolemic, wt 187# feels tired but not orthostatic. Energy returning, compliant with medications low-sodium and fluid restrictions, starting to do more activity. --renal function has been NL --For new HFrEF likely viral CM: GDMT escalation in progress. Limited by no insurance, given GoodRx card --has started Metoprolol xl 25mg /d, valsartan 80mg bid and Farxiga 10mg daily. Holding MRA at present d/t soft BP. Has 1st month Rxs and PAP docs to call about Farxiga. --Diuresis: no loop diuretic at present, will call for wt gain 2#/1d or 5#/1 week. --maintain K+ at/above 4 and mag at/above 2 --HF education in progress, strict I/O, daily wts, low sodium diet, fluid restriction <2L --has information to call about qualifying for HC coverage/meds. Followup: appt 07/15/[address] Payne at [facility] Sent info about PAP to (more content not included)... [facility] 07-03-2023 Note Patient admitted to the hospital for: Acute systolic heart failure. Chart echo from 06/30/2023 reports: The calculated Biplane EF is 13 %. The EF is 20 % visually. Current echo report qualifies for Cardiac Rehab services per [facility] eligibility criteria. A Cardiac Rehab referral diagnosis code must also meet CMS criteria. Kristin Ramesh RN, BSN Cardiology Outpatient Coordinator Cardiopulmonary Rehab [facility] 07-03-2023 Note Adult Nutrition Asse ssment: Name: Leanne Higgins Date: 1975 Date of Visit: 07/03/23 Received HF education consult. This was completed by RD on 06/29. See note from same date for full assessment. [facility] 07-03-2023 Note Hospital Medicine Discharge Summary Final Discharge Diagnosis: New acute onset systolic and diastolic heart failure, NYHA class I Hypothyroidism Admission Diagnosis: Acute systolic heart failure (CMS/[facility]) [I50.21] Hospital course: Leanne Higgins is a 48 y.o. female without significant PMHx due to no PCP followup who presented with weeks of worsening SOB and productive greenish cough. 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 She endorses PND, Zamudio and some LE edema, which have all since improved. At [facility], CXR showed cardiac enlargement, CTA chest showed diffused ground glass with pleural effusion, pro-BNP >3000, ECHO 25%-30% (new), and she was transferred to [facility] for potential cardiac catheterization. TSH 19, normal free T4, A1c 5.0%, LDL 98, TG 161. Patient seen by cardiology and initially was receiving Lasix. Cardiac cath done today and showed: Normal right heart catheterization and normal coronary angiogram. PCWP of 5 and normal CO/CI. Repeat Echo showed Ef in the range of 13-20% with G1DD. Lipid panel showed: CH of 176 and LDL of 98 Patient during hospital stay had her thyrid check and came back with TSH of 18.96 with normal low free T4 of 0.72 and started on Synthroid She is being discharged today and to F/U with PCP in 1 week and with cardiology in 1-2 weeks. N.B: Coxsackie B virus Ab and Enterovirus PCR pending Also Anti-Hollie Ab, Sjogren's, anti dsDNA and GERI pending Dear Dr. Gabriella MD, Leanne is advised to follow up with you within 1-2 weeks. Follow-up with: Cardiology Scheduled appointments: Future Appointments Date Time Provider Department Center 07/13/2023 2:40 PM Francine Gold NP [facility] Your medication list START taking these medications Instructions Last Dose Given Next Dose Due atorvastatin 20 mg tablet Commonly known as: Lipitor Take 1 tablet (20 mg) by mouth at bedtime. dapagliflozin propanediol 10 mg Commonly known as: Farxiga Start taking on: July 04, 2023 Take 1 tablet (10 mg) by mouth in the morning. Do not start before July 04, 2023. levothyroxine 50 mcg tablet Commonly known as: Synthroid, Levoxyl Take 1 tablet (50 mcg) by mouth before breakfast. metoprolol succinate XL 25 mg 24 hr tablet Commonly known as: Toprol-XL Start taking on: July 04, 2023 Take 1 tablet (25 mg) by mouth in the morning. Do not crush or chew. Do not start before July 04, 2023. valsartan 80 mg tablet Commonly known as: Diovan Take 1 tablet (80 mg) by mouth every 12 (twelve) hours. Where to Get Your Medications These medications were sent to [facility] - [place], [place] - [address] [place] [address] [place] [address], [facility] [address] atorvastatin 20 mg tablet dapagliflozin propanediol 10 mg levothyroxine 50 mcg tablet metoprolol succinate XL 25 mg 24 hr tablet valsartan 80 mg tablet Leanne has No Known Allergies. Disposition: Home or Self Care () Discharge Condition: Stable Code Status: Full Code Diagnostic Results Hematology: Results from last 7 days Lab Units 07/03/23 0714 06/29/23 2049 WBC AUTO 10*3/uL 10.95* 9.70 HEMOGLOBIN g/dL 14.0 13.5 HEMATOCRIT % 41.5 41.2 MCV fL 85.2 85.5 PLATELETS AUTO 10*3/uL 255 285 Chemistry: Results from last 7 days Lab Units 07/03/23 0459 07/01/23 0545 06/29/23 2048 SODIUM mmol/L 134* 136 136 POTASSIUM mmol/L 3.7 3.8 3.9 CHLORIDE mmol/L 98 101 101 CO2 mmol/L 29 27 24 BUN mg/dL 26* 17 12 CREATININE mg/dL 1.15 1.12 0.82 GLUCOSE mg/dL 93 91 104* MAGNESIUM mg/dL -- -- 2.2 CALCIUM mg/dL 9.3 9.1 9.3 Results from last 7 days Lab Units 06/29/238 AST U/L 41* ALT U/L 68* ALK PHOS U/L 74 BILIRUBIN TOTAL mg/dL 0.6 Test Results Pending At Discharge: Pending Labs Order Current Status Coxsackie A9 virus antibodies Collected (07/03/23 1231) Coxsackie B virus antibodies Collected (07/03/23 1231) Enterovirus PCR Collected (07/03/23 1231) GERI In process Anti-DNA antibody, double-stranded In process Anti-Hollie 1 antibody, IgG In process Sjogrens syndrome antibodies A and B In process Thyroid peroxidase antibody In process Sputum culture Preliminary result Diet at the time of discharge: regular diet and cardiac diet Activity: Normal activity as tolerated Objective Blood pressure 104/72, pulse 68, temperature 36.6 ???C (97.9 ???F), temperature source Temporal, resp. rate 16, height 1.626 m (5' 4 ), weight 84.2 kg (185 lb 9.6 oz), SpO2 95 %. General: Alert and oriented x3. Cardiology: Normal rate, regular rhythm. Lungs: Clear to auscultation, no wheezes, rales or rhonchi, symmetric air entry. Abdomen: Soft, non tender, non distended. Extremities: No pitting edema. Neurology: No focal neuro deficit noted. Total time for discharge - review of data, exam, discussion with providers and care-team, med-rec and orders, arranging follow up, counselin (more content not included)... [facility] 07-03-2023 Note Patient: Leanne lo Procedure Information Date/Time: 07/03/23 1100 Procedures: Coronary angiography Right heart cath Location: [facility] / [facility] (Cath) Providers: Omkar Banks MD Clinical information reviewed: Allergies Meds Physical Exam Airway Mallampati: III TM distance: <3 FB Neck ROM: full Cardiovascular Rate: normal Dental Pulmonary Breath sounds clear to auscultation Abdominal - normal exam Anesthesia Plan ASA 3 other (Conscious sedation) Anesthetic plan and risks discussed with patient. Use of blood products discussed with patient who consented to blood products. Additional Equipment Requests [facility] 07-03-2023 Note [facility] CARDIOLOGY INPAT IENT PROGRESS NOTE Reason for follow up: New diagnosis of HFrEF Subjective Evaluated prior to transport for Coronary angiogram. Complains of fatigue, without dyspnea or lightheadedness. Says since NPO has posterior right shoulder discomfort, which is new since admission . Return and spoke to patient after heart catheterization and prior to discharge. Reviewed heart failure education, etiology and pathophysiology of her viral cardiomyopathy, and she is discharging with first month supply of metoprolol, valsartan and Farxiga. Willing to weigh daily, report weight gain of 2 pounds in 1 day or 5 pounds in 1 week, reviewed low-sodium diet including salt and processed foods. She will call for questions or concerns. She will remain off work the rest of the week. Tele: SR ALLERGIES No Known Allergies CURRENT MEDS atorvastatin, 20 mg, oral, Nightly dapagliflozin propanediol, 10 mg, oral, Daily furosemide, 40 mg, intravenous, q12h heparin (porcine), 5,000 Units, subcutaneous, q12h SYDNIE levothyroxine, 50 mcg, oral, Daily metoprolol succinate XL, 25 mg, oral, Daily sulfur hexafluoride microsphr, 2 mL, intravenous, Once in imaging valsartan, 80 mg, oral, q12h SYDNIE Objective Patient Vitals for the past 24 hrs: BP Temp Temp src Pulse Resp SpO2 Weight 07/03/23 1630 98/64 -- -- 73 17 -- -- 07/03/23 1600 107/74 -- -- 82 17 -- -- 07/03/23 1500 116/61 -- -- 76 14 96 % -- 07/03/23 1455 114/67 -- -- -- -- 97 % -- 07/03/23 1430 112/68 -- -- 71 14 95 % -- 07/03/23 1415 108/72 -- -- 69 15 94 % -- 07/03/23 1400 103/66 -- -- 68 16 93 % -- 07/03/23 1345 98/60 -- -- 65 15 94 % -- 07/03/23 1315 90/63 -- -- 66 15 94 % -- 07/03/23 1300 105/69 -- -- 77 16 96 % -- 07/03/23 1245 97/71 -- -- 68 15 93 % -- 07/03/23 1230 104/72 -- -- 68 16 95 % -- 07/03/23 1217 95/63 -- -- 68 14 93 % -- 07/03/23 1202 115/67 -- -- 77 17 95 % -- 07/03/23 1136 98/57 -- -- 70 16 97 % -- 07/03/23 1046 -- -- -- -- -- 98 % -- 07/03/23 1043 121/69 -- -- 72 16 98 % -- 07/03/23 0800 108/70 36.6 ???C (97.9 ???F) Temporal 78 21 95 % -- 07/03/23 0518 -- -- -- -- -- -- 84.2 kg (185 lb 9.6 oz) 07/03/23 0303 103/67 36.6 ???C (97.9 ???F) Temporal 74 21 91 % -- 07/02/23 2324 106/76 36.5 ???C (97.7 ???F) Temporal 80 16 97 % -- 07/02/23 2107 109/75 -- -- -- -- -- -- 07/02/23 1939 102/74 36.4 ???C (97.5 ???F) Temporal 79 15 97 % -- BP 98/64 Pulse 73 Temp 36.6 ???C (97.9 ???F) (Temporal) Resp 17 Ht 1.626 m (5' 4 ) Wt 84.2 kg (185 lb 9.6 oz) SpO2 96% BMI 31.86 kg/m??? Wt Readings from Last 3 Encounters: 07/03/23 84.2 kg (185 lb 9.6 oz) General: Awake, alert, appropriate mood / affect, NAD Eyes: anicteric sclera. Non-injected conjunctiva. No xanthelasmas Neck: No elevated JVP. No carotid bruit Pulm: Breath sounds clear to ascultation bilaterally with no wheeze, crackles or rhonchi Cards: HRRR , NL S1, S2. No S3 or S4 gallop. Murmur: none Abd: Soft, Nontender, physiologic bowel sounds are present Extr: Lower extremity edema: None. DP pulses present bilaterally Skin: warm, dry, well perfused Neuro: A&Ox3, No gross deficits Lab Results Component Value Date NA 134 (L) 07/03/2023 K 3.7 07/03/2023 CL 98 07/03/2023 ANIONGAP 11 07/03/2023 BUN 26 (H) 07/03/2023 CREATININE 1.15 07/03/2023 CALCIUM 9.3 07/03/2023 MG 2.2 06/29/2023 Lab Results Component Value Date BILITOT 0.6 06/29/2023 ALKPHOS 74 06/29/2023 AST 41 (H) 06/29/2023 ALT 68 (H) 06/29/2023 PROT 6.6 06/29/2023 ALBUMIN 4.0 06/29/2023 Lab Results Component Value Date CHOLESTEROL 176 06/29/2023 TRIGLYCERIDES 161 (H) 06/29/2023 HDL 46 06/29/2023 LDL CALC 98 06/29/2023 Lab Results Component Value Date BNP 562 (H) 06/29/2023 Lab Results Component Value Date TSH 18.96 (H) 06/29/2023 FREE T4 0.72 06/29/2023 No results found for: DIGOXIN LVL Lab Results Component Value Date HGBA1C 5.0 06/29/2023 Lab Results Component Value Date BNP 562 (H) 06/29/2023 Lab Results Component Value Date WBC 10.95 (H) 07/03/2023 RBC 4.87 07/03/2023 HGB 14.0 07/03/2023 HCT 41.5 07/03/2023 MCV 85.2 07/03/2023 MCH 28.7 07/03/2023 MCHC 33.7 07/03/2023 RDW 14.5 07/03/2023 NEUTOPHILPCT 63.1 06/29/2023 LYMPHOPCT 24.3 06/29/2023 MONOPCT 10.4 06/29/2023 EOSPCT 1.5 06/29/2023 BASOPCT 0.3 06/29/2023 NEUTROABS 6.11 06/29/2023 LYMPHSABS 2.36 06/29/2023 MONOSABS 1.01 (H) 06/29/2023 EOSABS 0.15 06/29/2023 BASOSABS 0.03 06/29/2023 PLT 255 07/03/2023 NRBC 0.0 06/29/2023 No X-ray results found for the past 24 hours CV Testing: Encounter Date: 06/29/23 ECG 12 lead Result Value Ventricular Rate 89 Atrial Rate 89 [place] Interval 140 QRS DURATION 134 QT Interval 430 QTC CALCULATION(BAZETT) 523 P Theresa 17 R-Theresa -43 T Wave Theresa 27 Impression Normal sinus rhythm Possible Left atrial enlargement Left axis deviation Left bundle branch block Abnormal ECG When compared with ECG o (more content not included)... [facility] 07-02-2023 Note ---- Attestation signed by Isac Schaeffer MD at 07/03/2023 2:05 PM I did not personally examine the patient. I discussed the case with the resident/fellow Alba Ralph. Teaching Physician's Revisions: As noted above ---- Cardiology Progress Note Subjective Subjective: Leanne Higgins is a 48 y.o. female without significant PMHx due to no PCP followup who presented with weeks of worsening SOB and productive greenish cough. 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 She endorses PND, Zamudio and some LE edema, which have all since improved. At [facility], CXR showed cardiac enlargement, CTA chest showed diffused ground glass with pleural effusion, pro-BNP >3000, ECHO 25%-30% (new), and she was transferred to [facility] for potential cardiac catheterization. TSH 19, normal free T4, A1c 5.0%, LDL 98, TG 161. We are consulted for new HFrEF and the need for possible heart cath. Interval Hx: Patient seen and examined at bedside. In NAD. Resting comfortably. Family (son and daughter) at bedside. Answered questions about GDMT medications and possible side effects, as they were asking. Patient aware and agreeable to plan for cardiac cath. States she is more fatigued. Otherwise no acute concerns. Objective Current Facility-Administered Medications: atorvastatin (Lipitor) tablet 20 mg, 20 mg, oral, Nightly, Ciarra Davis MD, 20 mg at 07/01/232102 dapagliflozin propanediol (Farxiga) tablet 10 mg, 10 mg, oral, Daily, Alba Ralph MD, 10 mg at 07/02/23 0832 furosemide (Lasix) injection 40 mg, 40 mg, intravenous, q12h, Ciarra Davis MD, 40 mg at 07/02/23 0832 heparin (porcine) injection 5,000 Units, 5,000 Units, subcutaneous, q12h [facility], Ciarra Davis MD, 5,000 Units at 07/02/23 0832 levothyroxine (Synthroid, Levoxyl) tablet 50 mcg, 50 mcg, oral, Daily, Boaz Brooke MD, 50 mcg at 07/02/23 0525 metoprolol succinate XL (Toprol-XL) 24 hr tablet 25 mg, 25 mg, oral, Daily, Alba Ralph MD, 25 mg at 07/02/23 0832 sulfur hexafluoride microsphr (Lumason) injection 24.28 mg, 2 mL, intravenous, Once in imaging, Boaz Brooke MD valsartan (Diovan) tablet 80 mg, 80 mg, oral, q12h SYDNIE, Alba Ralph MD, 80 mg at 07/02/23 1247 Objective: Patient Vitals for the past 24 hrs: BP Temp Temp src Pulse Resp SpO2 Weight 07/02/23 1200 112/77 36.9 ???C (98.4 ???F) Temporal -- -- -- -- 07/02/23 0800 109/76 36.9 ???C (98.4 ???F) Temporal -- -- -- -- 07/02/23 0514 -- -- -- -- -- -- 83.8 kg (184 lb 12.8 oz) 07/02/23 0403 96/57 36.4 ???C (97.6 ???F) [facility] 83 15 98 % -- 07/02/23 0004 99/75 -- -- 72 12 100 % -- 07/01/23 2103 125/80 -- -- -- -- -- -- 07/01/23 1945 125/86 36.6 ???C (97.8 ???F) [facility] 93 21 -- -- 07/01/23 1612 104/67 36.3 ???C (97.3 ???F) -- 76 12 95 % -- Physical Examination: Physical Exam Vitals reviewed. Constitutional: General: She is not in acute distress. Appearance: Normal appearance. She is not ill-appearing, toxic-appearing or diaphoretic. HENT: Head: Normocephalic and atraumatic. Eyes: General: No scleral icterus. Extraocular Movements: Extraocular movements intact. Cardiovascular: Rate and Rhythm: Normal rate and regular rhythm. Pulses: Normal pulses. Heart sounds: Normal heart sounds. No murmur heard. No friction rub. No gallop. Pulmonary: Effort: Pulmonary effort is normal. Breath sounds: Normal breath sounds. No stridor. No wheezing, rhonchi or rales. Abdominal: General: Bowel sounds are normal. There is no distension. Palpations: Abdomen is soft. There is no mass. Tenderness: There is no abdominal tenderness. There is no guarding. Hernia: No hernia is present. Musculoskeletal: Right lower leg: No edema. Left lower leg: No edema. Skin: Capillary Refill: Capillary refill takes less than 2 seconds. Neurological: General: No focal deficit present. Mental Status: She is alert and oriented to person, place, and time. Psychiatric: Mood and Affect: Mood normal. Behavior: Behavior normal. Relevant Lab Results Encounter Date: 06/29/23 ECG 12 lead Result Value Ventricular Rate 89 Atrial Rate 89 AZ Interval 140 QRS DURATION 134 QT Interval 430 QTC CALCULATION(BAZETT) 523 P Theresa 17 R-Theresa -43 T Wave Theresa 27 Impression Normal sinus rhythm Possible Left atrial enlargement Left axis deviation Left bundle branch block Abnormal ECG When compared with ECG of 29-JUN-2023 21:15, No significant change was found Confirmed by Tierra DURAN, BARBARA Amin ([id number]) on 06/30/2023 1:00:29 PM Lab Results Component Value Date TROPONINI 0.00 06/30/2023 Transthoracic echo (TTE) complete Result Date: 06/30/2023 1 1 [facility] [address] [place] [address] (fa (more content not included)... [facility] 07-02-2023 Note Hospital Medicine Daily Progress Note - 07/02/2023 11:14 AM; Room: [address] [place] [address] Admission: 06/29/2023 6:41 PM; Length of stay: 3 days THE HOSPITALIST TEAM PREFERS TO USE [employer] CHAT FOR COMMUNICATION 7AM-7PM. IF I DO NOT RESPOND WITHIN 15 MINUTES, PLEASE PAGE ME/CALL THROUGH THE GROUNDS SUPERVISOR. FROM 7PM-7AM, PLEASE PAGE [phone](COVR) Code Status: Full Code Barriers to Discharge: CHF exacerbation Expected Discharge Date: 2-3 days Discharge Destination: home Overview Patient is seen for evaluation and management of CHF Subjective Seen today in her room, denies chest pain. C/P SOB when laying flat Physical Exam Constitutional: General: She is not in acute distress. Appearance: Normal appearance. She is normal weight. HENT: Head: Normocephalic and atraumatic. Cardiovascular: Rate and Rhythm: Normal rate and regular rhythm. Pulses: Normal pulses. Heart sounds: Normal heart sounds. Pulmonary: Effort: Pulmonary effort is normal. Breath sounds: Normal breath sounds. Abdominal: General: Abdomen is flat. Bowel sounds are normal. Palpations: Abdomen is soft. Musculoskeletal: General: No swelling, tenderness, deformity or signs of injury. Normal range of motion. Right lower leg: Edema present. Left lower leg: Edema present. Skin: General: Skin is warm and dry. Neurological: General: No focal deficit present. Mental Status: She is alert and oriented to person, place, and time. Mental status is at baseline. Visit Vitals BP 109/76 Pulse 83 Temp 36.9 ???C (98.4 ???F) (Temporal) Resp 15 Intake/Output Summary (Last 24 hours) at 07/02/2023 1114 Last data filed at 07/02/2023 1000 Gross per 24 hour Intake 1230 ml Output 1500 ml Net -270 ml Estimated body mass index is 31.72 kg/m??? as calculated from the following: Height as of this encounter: 1.626 m (5' 4 ). Weight as of this encounter: 83.8 kg (184 lb 12.8 oz). Active Inpatient Problems Principal Problem: Acute systolic heart failure ([facility]) Assessment and Plan # New systolic congestive heart failure - Ejection fraction 25 to 30%, troponin within normal at [facility], with no EKG changes reported - BNP 562 - Continue with Lasix 40 twice daily - Farxiga, Toprol XL , Diovan - Chest xray: Mild vascular congestion and interstitial edema. Small right pleural effusion. Lower lung atelectasis - Monitor I's and O's and daily weight - CH 176, LDL 98. A1c 5.0 - Cardiac cath tomorrow - Echo showed EF 13-20% with RWMA and G1DD # Hypothyroidism -New diagnosis, TSH 11 - Start levothyroxine 50 mics VTE Prophylaxis: Heparin subcutaneous Scheduled Meds atorvastatin, 20 mg, oral, Nightly dapagliflozin propanediol, 10 mg, oral, Daily furosemide, 40 mg, intravenous, q12h heparin (porcine), 5,000 Units, subcutaneous, q12h SYDNIE levothyroxine, 50 mcg, oral, Daily metoprolol succinate XL, 25 mg, oral, Daily sulfur hexafluoride microsphr, 2 mL, intravenous, Once in imaging valsartan, 80 mg, oral, q12h SYDNIE Pertinent Investigations Hematology: Results from last 7 days Lab Units 06/29/232048 WBC AUTO 10*3/uL 9.70 HEMOGLOBIN g/dL 13.5 HEMATOCRIT % 41.2 MCV fL 85.5 PLATELETS AUTO 10*3/uL 285 Chemistry: Results from last 7 days Lab Units 07/01/23 0545 06/29/232047 SODIUM mmol/L 136 136 POTASSIUM mmol/L 3.8 3.9 CHLORIDE mmol/L 101 101 CO2 mmol/L 27 24 BUN mg/dL 17 12 CREATININE mg/dL 1.12 0.82 GLUCOSE mg/dL 91 104* MAGNESIUM mg/dL -- 2.2 CALCIUM mg/dL 9.1 9.3 Results from last 7 days Lab Units 06/29/232047 AST U/L 41* ALT U/L 68* ALK PHOS U/L 74 BILIRUBIN TOTAL mg/dL 0.6 Historical Values: (Includes values prior to this admission) Lab Results Component Value Date TSH 18.96 (H) 06/29/2023 FREET4 0.72 06/29/2023 HDL 46 06/29/2023 LDL 130 06/29/2023 No results found for: AAUJZEER29 , IRON , TIBC , C3 , C4 , GERI , CANCA , ASO , PSA , CEA , CA125 , CA199 , AFP , CA153 Imaging Transthoracic echo (TTE) complete 1 1 [facility] Heart Station [address] [place], [place] [id number] (fax) Echocardiogram-[facility] Name: LEANNE HIGGINS Study Date: 06/30/2023 01:00 PM B/P: 106 mmHg/74 mmHg HR: Date of : 1975 Location: [facility] Height: 64 in. Age: 48 year(s) Patient Room: 3184 Weight: 190 lb. Gender: Female Patient Status: InPt BSA: 1.91 m2 Indication: Chest Pain, Shortness of Breath, Congestive Heart Failure Examination: Echocardiogram (Complete), Lumason Contrast Image Quality: Adequate Patient Consent: Procedure explained to patient Exam Details Contrast: I.V. dose of Lumason Conclusions Left Ventricle: The left ventricle is severely enlarged. Global left ventricular systolic function is severely reduced. The calculated Biplane EF is 13 %. The EF is 20 % visually. Left ventricular wall thickness is normal. Regional wall motion abnormalities (see d (more content not included)... [facility] 07-01-2023 Note Hospital Medicine Daily Progress Note - 07/01/2023 12:13 PM; Room: [facility]/3184-01 Admission: 06/29/2023 6:41 PM; Length of stay: 2 days THE HOSPITALIST TEAM PREFERS TO USE [employer] FOR COMMUNICATION 7AM-7PM. IF I DO NOT RESPOND WITHIN 15 MINUTES, PLEASE PAGE ME/CALL THROUGH THE GROUNDS SUPERVISOR. FROM 7PM-7AM, PLEASE PAGE [phone](COVR) Code Status: Full Code Barriers to Discharge: CHF exacerbation Expected Discharge Date: 2-3 days Discharge Destination: home Overview Patient is seen for evaluation and management of CHF Subjective Seen today in her room, denies chest pain. C/P SOB when laying flat Physical Exam Constitutional: General: She is not in acute distress. Appearance: Normal appearance. She is normal weight. HENT: Head: Normocephalic and atraumatic. Cardiovascular: Rate and Rhythm: Normal rate and regular rhythm. Pulses: Normal pulses. Heart sounds: Normal heart sounds. Pulmonary: Effort: Pulmonary effort is normal. Breath sounds: Normal breath sounds. Abdominal: General: Abdomen is flat. Bowel sounds are normal. Palpations: Abdomen is soft. Musculoskeletal: General: No swelling, tenderness, deformity or signs of injury. Normal range of motion. Right lower leg: Edema present. Left lower leg: Edema present. Skin: General: Skin is warm and dry. Neurological: General: No focal deficit present. Mental Status: She is alert and oriented to person, place, and time. Mental status is at baseline. Visit Vitals BP 121/75 Pulse 83 Temp 35.9 ???C (96.7 ???F) (Temporal) Resp 16 Intake/Output Summary (Last 24 hours) at 07/01/2023 1213 Last data filed at 07/01/2023 1100 Gross per 24 hour Intake 1440 ml Output 2000 ml Net -560 ml Estimated body mass index is 32.06 kg/m??? as calculated from the following: Height as of this encounter: 1.626 m (5' 4 ). Weight as of this encounter: 84.7 kg (186 lb 12.8 oz). Active Inpatient Problems Principal Problem: Acute systolic heart failure ([facility]) Assessment and Plan # New systolic congestive heart failure - Ejection fraction 25 to 30%, troponin within normal at [facility], with no EKG changes reported - BNP 562 - Continue with Lasix 40 twice daily - Farxiga, Toprol XL , Diovan - Chest xray: Mild vascular congestion and interstitial edema. Small right pleural effusion. Lower lung atelectasis - Monitor I's and O's and daily weight - CH 176, LDL 98. A1c 5.0 - Cardiac cath on Monday - Echo showed EF 13-20% with RWMA and G1DD # Hypothyroidism -New diagnosis, TSH 11 - Start levothyroxine 50 mics VTE Prophylaxis: Heparin subcutaneous Scheduled Meds atorvastatin, 20 mg, oral, Nightly dapagliflozin propanediol, 10 mg, oral, Daily furosemide, 40 mg, intravenous, q12h heparin (porcine), 5,000 Units, subcutaneous, q12h SYDNIE levothyroxine, 50 mcg, oral, Daily metoprolol succinate XL, 25 mg, oral, Daily sulfur hexafluoride microsphr, 2 mL, intravenous, Once in imaging valsartan, 80 mg, oral, q12h SYDNIE Pertinent Investigations Hematology: Results from last 7 days Lab Units 06/29/232048 WBC AUTO 10*3/uL 9.70 HEMOGLOBIN g/dL 13.5 HEMATOCRIT % 41.2 MCV fL 85.5 PLATELETS AUTO 10*3/uL 285 Chemistry: Results from last 7 days Lab Units 07/01/23 0545 06/29/232047 SODIUM mmol/L 136 136 POTASSIUM mmol/L 3.8 3.9 CHLORIDE mmol/L 101 101 CO2 mmol/L 27 24 BUN mg/dL 17 12 CREATININE mg/dL 1.12 0.82 GLUCOSE mg/dL 91 104* MAGNESIUM mg/dL -- 2.2 CALCIUM mg/dL 9.1 9.3 Results from last 7 days Lab Units 06/29/238 AST U/L 41* ALT U/L 68* ALK PHOS U/L 74 BILIRUBIN TOTAL mg/dL 0.6 Historical Values: (Includes values prior to this admission) Lab Results Component Value Date TSH 18.96 (H) 06/29/2023 FREET4 0.72 06/29/2023 HDL 46 06/29/2023 LDL 130 06/29/2023 No results found for: [id number] , IRON , TIBC , C3 , C4 , GERI , CANCA , ASO , PSA , CEA , CA125 , CA199 , AFP , CA153 Imaging Transthoracic echo (TTE) complete [facility] Heart Station [address] [place] [address] [phone] (fax) Echocardiogram-[facility] Name: LEANNE HIGGINS Study Date: 06/30/2023 01:00 PM B/P: 106 mmHg/74 mmHg HR: Date of : 1975 Location: [facility] Height: 64 in. Age: 48 year(s) Patient Room: [facility] Weight: 190 lb. Gender: Female Patient Status: InPt BSA: 1.91 m2 Indication: Chest Pain, Shortness of Breath, Congestive Heart Failure Examination: Echocardiogram (Complete), Lumason Contrast Image Quality: Adequate Patient Consent: Procedure explained to patient Exam Details Contrast: I.V. dose of Lumason Conclusions Left Ventricle: The left ventricle is severely enlarged. Global left ventricular systolic function is severely reduced. The calculated Biplane EF is 13 %. The EF is 20 % visually. Left ventricular wall thickness is normal. Regional wall motion abnormalities (see (more content not included)... [facility] 07-01-2023 Note Nutrition Education Consult: Name: Leanne Higgins Room: [address] [place] [address] Date: 1975 Date of Visit: 07/01/23 Admission Dx: Acute systolic heart failure (CMS/HCC) [I50.21] Consult: CHF diet education HF diet education provided by RD on 06/30/2023, please see full RD assessment. Contact the dietitian via Epic chat 8A-4P Monday through Monday or call extension [phone]. For weekends & holidays, the dietitian can be reached via pager [phone] from 9A-3P. Unable to respond to [employer] chat messages on Monday & . [facility] 07-01-2023 Note ---- Attestation signed by Isac Schaeffer MD at 07/03/2023 1:44 PM I personally saw and examined the patient on the same date of service as resident/fellow Alba Ralph. I discussed the findings and therapeutic plan with the resident/fellow Alba Ralph. I agree with the documentation, except for any edits/updates below. Teaching Physician's Revisions: As noted above ---- Cardiology Progress Note Subjective Subjective: Leanne Higgins is a 48 y.o. female without significant PMHx due to no PCP followup who presented with weeks of worsening SOB and productive greenish cough. 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 She endorses PND, Zamudio and some LE edema, which have all since improved. At [facility], CXR showed cardiac enlargement, CTA chest showed diffused ground glass with pleural effusion, pro-BNP >3000, ECHO 25%-30% (new), and she was transferred to [facility] for potential cardiac catheterization. TSH 19, normal free T4, A1c 5.0%, LDL 98, TG 161. We are consulted for new HFrEF and the need for possible heart cath. Interval Hx: Patient seen and examined at bedside. In NAD. Resting comfortably. She is endorsing coughing which seems to occur right before I get my Lasix . She also noted hard to catch breath when going to the bathroom this morning. Still endorses PND, orthopnea, and coughing with laying flat. She stated she had sharp chest pain that lasted for a few seconds, ONLY when she coughed. Explained to her to keep monitoring for chest pain, SOB, cough, LE edema, and other symptoms. Explained to patient imaging findings of her ECHO, and plan for likely cath on Monday. She is aware and agreeable to plan. Objective Current Facility-Administered Medications: atorvastatin (Lipitor) tablet 20 mg, 20 mg, oral, Nightly, Ciarra Davis MD, 20 mg at 06/30/232109 dapagliflozin propanediol (Farxiga) tablet 10 mg, 10 mg, oral, Daily, Alba Ralph MD furosemide (Lasix) injection 40 mg, 40 mg, intravenous, q12h, Ciarra Davis MD, 40 mg at 07/01/23 0857 heparin (porcine) injection 5,000 Units, 5,000 Units, subcutaneous, q12h [facility], Ciarra Davis MD, 5,000 Units at 06/30/232109 levothyroxine (Synthroid, Levoxyl) tablet 50 mcg, 50 mcg, oral, Daily, Boaz Brooke MD, 50 mcg at 07/01/23 0552 metoprolol succinate XL (Toprol-XL) 24 hr tablet 25 mg, 25 mg, oral, Daily, Alba Ralph MD sulfur hexafluoride microsphr (Lumason) injection 24.28 mg, 2 mL, intravenous, Once in imaging, Boaz Brooke MD valsartan (Diovan) tablet 80 mg, 80 mg, oral, q12h [facility], Alba Ralph MD Objective: Patient Vitals for the past 24 hrs: BP Temp Temp src Pulse Resp SpO2 Weight 07/01/23 0738 117/87 35.9 ???C (96.7 ???F) Temporal 81 16 96 % -- 07/01/23 0510 -- -- -- -- -- -- 84.7 kg (186 lb 12.8 oz) 07/01/23 0445 110/63 36.4 ???C (97.5 ???F) Temporal 67 15 -- -- 06/30/231999 (!) 133/98 36.3 ???C (97.3 ???F) Temporal 97 23 -- -- 06/30/23 1900 113/78 -- -- 80 13 -- -- 06/30/23 1606 125/80 36.2 ???C (97.2 ???F) -- 84 18 -- -- 06/30/23 1200 106/74 36.3 ???C (97.3 ???F) -- 71 15 -- -- Physical Examination: Physical Exam Vitals reviewed. Constitutional: General: She is not in acute distress. Appearance: Normal appearance. She is not ill-appearing, toxic-appearing or diaphoretic. HENT: Head: Normocephalic and atraumatic. Eyes: General: No scleral icterus. Extraocular Movements: Extraocular movements intact. Cardiovascular: Rate and Rhythm: Normal rate and regular rhythm. Pulses: Normal pulses. Heart sounds: Normal heart sounds. No murmur heard. No friction rub. No gallop. Pulmonary: Effort: Pulmonary effort is normal. Breath sounds: Normal breath sounds. No stridor. No wheezing, rhonchi or rales. Abdominal: General: Bowel sounds are normal. There is no distension. Palpations: Abdomen is soft. There is no mass. Tenderness: There is no abdominal tenderness. There is no guarding. Hernia: No hernia is present. Musculoskeletal: Right lower leg: No edema. Left lower leg: No edema. Skin: Capillary Refill: Capillary refill takes less than 2 seconds. Neurological: General: No focal deficit present. Mental Status: She is alert and oriented to person, place, and time. Psychiatric: Mood and Affect: Mood normal. Behavior: Behavior normal. Relevant Lab Results Encounter Date: 06/29/23 ECG 12 lead Result Value Ventricular Rate 89 Atrial Rate 89 [place] Interval 140 QRS DURATION 134 QT Interval 430 QTC CALCULATION(BAZETT) 523 P Theresa 17 R-Theresa -43 T Wave Theresa 27 Impression Normal sinus rhythm Possible Left atrial enlargement Left axis deviation Left bundle branch block Abnormal ECG When compared with ECG of 29-JUN-2023 21:15, No sig (more content not included)... [facility] 06-30-2023 Note 06/30/23 1533 Referral Data Referral Source workers compensation claims analyst Referral Reason Information Patient Information Primary Caregiver Self Activities of Daily Living Assistive Device Not applicable Living Arrangement (Current/Prior to Hospitalization) Private residence Ambulation Independent Dressing Independent Feeding Independent Referral To Financial Resources Medicaid Discharge Planning Support Systems Children Patient's goal for discharge return home Screen via RUC. Patient presents from OSH for heart cath (scheduled for today). She is from a private residence where she resides alone. Discharge disposition dependent on patient's recovery from procedure. OTM team available to assist with any discharge planning needs. [facility] 06-30-2023 Note Adult Nutrition Asse ssment: Name: Leanne Higgins Date: 1975 Date of Visit: 06/30/23 Admission Dx: Acute systolic heart failure ([facility]) [I50.21] Reason for assessment: high risk -HF Information obtained from: patient and medical record No past medical history on file. Current Medications: atorvastatin, 20 mg, oral, Nightly furosemide, 40 mg, intravenous, q12h heparin (porcine), 5,000 Units, subcutaneous, q12h SYDNIE levothyroxine, 50 mcg, oral, Daily lisinopril, 20 mg, oral, Daily metoprolol tartrate, 12.5 mg, oral, BID sulfur hexafluoride microsphr, 2 mL, intravenous, Once in imaging Labs: 0 Lab Value Date/Time BUN 12 06/29/20232047 CREATININE 0.82 06/29/20232047 NA 136 06/29/20232047 K 3.9 06/29/20232047 MG 2.2 06/29/20232047 HGBA1C 5.0 06/29/20232047 HGB 13.5 06/29/20232048 WBC 9.70 06/29/20232048 CHOL 176 06/29/20232047 HDL 46 06/29/20232047 Other Pertinent Labs: BNP 562 I/O: Intake/Output Summary (Last 24 hours) at 06/30/2023 1458 Last data filed at 06/30/2023 1100 Gross per 24 hour Intake 960 ml Output 1650 ml Net -690 ml Allergies: No Known Allergies Nutrition Problems: -Swallowing Assessment: No issues chew/swallow -Abdominal Assessment: Last BM 06/29 -Appetite: fair (decreased past few weeks 2/2 SOB) -Cognition: A/O x4 -Skin: intact -Edema: BLE +1 -Other: newly dx HF with EF 25-30% Nutrition Data/Clinical Indicators of Nutrition Status: Height: 162.6 cm (5' 4 ) Weight: 86.3 kg (190 lb 3.2 oz) BMI (Calculated): 32.63 Wt change: No wt hx in Epic. Pt does not monitor wt at home regularly. Wt Readings from Last 10 Encounters: 06/30/23 86.3 kg (190 lb 3.2 oz) IBW: 54.5 kg Nutrition Assessment: Nutrition history: Pt assessed today for new onset HF. She typically follows a regular diet at home but avoids added Na. 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 Appetite is generally good, has been slightly decreased for past few weeks 2/2 increased SOB. Dietary Orders (From admission, onward) Start Ordered 06/30/23 1255 Special Kitchen Request Once Comments: Mashed potatoes entree green beans 06/30/23 1256 06/30/23 1235 Regular Diet Heart Healthy/HTN, CABG,Stroke, (2gNA, low fat, low cholesterol) Diet effective now Question Answer Comment Room Service? Yes Fat restriction: Heart Healthy/HTN, CABG,Stroke, (2gNA, low fat, low cholesterol) 06/30/23 1234 Meal Intake: 100% x1 documented meal Nutrition Risk: Low Malnutrition Assessment: Patient at risk for malnutrition according to hospital criteria, but does not meet the clinical characteristics per the Academy of Nutrition and Dietetics, and the [place] Society of Enteral and Parenteral Nutrition to support the diagnosis of malnutrition. Nutrition Education: Diet literature: Heart Failure Nutrition Therapy, No Salt Shaker Recipes Expected compliance/patient understanding: Good -Encouraged daily wt monitoring, avoiding items with >300 mg Na/serving and limiting daily intake of Na to <2000 mg. Teach back method: Used Time spent: 15 minutes Treatment Plan: -Continue with cardiac diet -Daily wt monitoring Goals: Nutrition Goals: intake > 75% meals, daily weights, and compliance w/ MNT Contact the dietitian via [employer] chat 8A-4P Monday through Monday or call extension [phone]. For weekends & holidays, the dietitian can be reached via pager [phone] from 9A-3P. Unable to respond to [employer] chat messages on Monday & . [facility] 06-30-2023 Note Hospital Medicine Daily Progress Note - 06/30/2023 12:21 PM; Room: [address] [place] [address] Admission: 06/29/2023 6:41 PM; Length of stay: 1 days THE HOSPITALIST TEAM PREFERS TO USE [employer] CHAT FOR COMMUNICATION 7AM-7PM. IF I DO NOT RESPOND WITHIN 15 MINUTES, PLEASE PAGE ME/CALL THROUGH THE GROUNDS SUPERVISOR. FROM 7PM-7AM, PLEASE PAGE [phone](COVR) Code Status: Full Code Barriers to Discharge: CHF exacerbation Expected Discharge Date: 2-3 days Discharge Destination: home Overview Patient is seen for evaluation and management of CHF Subjective Seen today in her room, denies chest pain. C/P SOB when laying flat Physical Exam Constitutional: General: She is not in acute distress. Appearance: Normal appearance. She is normal weight. HENT: Head: Normocephalic and atraumatic. Cardiovascular: Rate and Rhythm: Normal rate and regular rhythm. Pulses: Normal pulses. Heart sounds: Normal heart sounds. Pulmonary: Effort: Pulmonary effort is normal. Breath sounds: Normal breath sounds. Abdominal: General: Abdomen is flat. Bowel sounds are normal. Palpations: Abdomen is soft. Musculoskeletal: General: No swelling, tenderness, deformity or signs of injury. Normal range of motion. Right lower leg: Edema present. Left lower leg: Edema present. Skin: General: Skin is warm and dry. Neurological: General: No focal deficit present. Mental Status: She is alert and oriented to person, place, and time. Mental status is at baseline. Visit Vitals BP 106/74 Pulse 71 Temp 36.3 ???C (97.3 ???F) Resp 15 Intake/Output Summary (Last 24 hours) at 06/30/2023 1221 Last data filed at 06/30/2023 1100 Gross per 24 hour Intake 960 ml Output 1650 ml Net -690 ml Estimated body mass index is 32.65 kg/m??? as calculated from the following: Height as of this encounter: 1.626 m (5' 4 ). Weight as of this encounter: 86.3 kg (190 lb 3.2 oz). Active Inpatient Problems Principal Problem: Acute systolic heart failure (CMS/[facility]) Assessment and Plan # New systolic congestive heart failure - Ejection fraction 25 to 30%, troponin within normal at [facility], with no EKG changes reported - BNP 562 - Reportedly patient was diuresed 4 L - Continue with Lasix 40 twice daily - Chest xray: Mild vascular congestion and interstitial edema. Small right pleural effusion. Lower lung atelectasis - Monitor I's and O's and daily weight - CH 176, LDL 98. A1c 5.0 - Plan for echo and cardiac cath # Hypothyroidism -New diagnosis, TSH 11 - Start levothyroxine 50 mics VTE Prophylaxis: Heparin subcutaneous Scheduled Meds atorvastatin, 20 mg, oral, Nightly furosemide, 40 mg, intravenous, q12h heparin (porcine), 5,000 Units, subcutaneous, q12h SYDNIE levothyroxine, 50 mcg, oral, Daily lisinopril, 20 mg, oral, Daily metoprolol tartrate, 12.5 mg, oral, BID Pertinent Investigations Hematology: Results from last 7 days Lab Units 06/29/23 204 WBC AUTO 10*3/uL 9.70 HEMOGLOBIN g/dL 13.5 HEMATOCRIT % 41.2 MCV fL 85.5 PLATELETS AUTO 10*3/uL 285 Chemistry: Results from last 7 days Lab Units 06/29/23 2048 SODIUM mmol/L 136 POTASSIUM mmol/L 3.9 CHLORIDE mmol/L 101 CO2 mmol/L 24 BUN mg/dL 12 CREATININE mg/dL 0.82 GLUCOSE mg/dL 104* MAGNESIUM mg/dL 2.2 CALCIUM mg/dL 9.3 Results from last 7 days Lab Units 06/29/23 2048 AST U/L 41* ALT U/L 68* ALK PHOS U/L 74 BILIRUBIN TOTAL mg/dL 0.6 Historical Values: (Includes values prior to this admission) Lab Results Component Value Date TSH 18.96 (H) 06/29/2023 FREET4 0.72 06/29/2023 HDL 46 06/29/2023 LDL 130 06/29/2023 No results found for: [id number] , IRON , TIBC , C3 , C4 , GERI , CANCA , ASO , PSA , CEA , CA125 , CA199 , AFP , CA153 Imaging ECG 12 lead Normal sinus rhythm Possible Left atrial enlargement Left axis deviation Left bundle branch block Abnormal ECG When compared with ECG of 29-JUN-2023 21:15, No significant change was found ECG 12 lead Normal sinus rhythm Possible Left atrial enlargement Left bundle branch block Abnormal ECG No previous ECGs available Confirmed by Liam Ramires ([id number]) on 06/30/2023 1:12:14 AM Discharge Planning Discharge Planning Type of Residence/Post Acute Needs: Private residence Patient's goal for discharge: Home Signed Boaz Brooke MD Hospital Medicine 06/30/2023 12:21 PM [facility] 06-30-2023 Note 06/30/23 1018 Admission Assessment Questions Verify insurance with patient Yes (sadiq cary/[facility] working case for medicaid) Do you understand medical disease or what brought you into the hospital? Yes Who is your current PCP? Kathy Bruce MD Can I schedule a follow up appointment for you at the time of discharge? No (pt will schedule) Do you understand why you are taking your current medications? Yes Are you taking your medications as prescribed? Yes Did patient provide teach back? Yes Would you like use our pharmacy [facility] to fill your new medications at the time of Discharge? Yes Does the patient have a dependency case manager assigned to them through their insurance? No Living Arrangement (Current/Prior to Hospitalization) Private residence (steps & multiple stories) Does the patient have history of HHC or SNF? No ([employer], route 20) Assistive Device Not applicable Patient's goal for discharge Home Was patient reminded that goal for discharge is 11am? Yes Does the patient have transportation at discharge? Yes Type of Residence/Post Acute Needs Private residence Is PT/OT appropriate? No Is PT/OT ordered? No Is SW consult appropriate? No Is SW consult ordered? No Do you understand the benefits of MyChart? Yes Were you able to send link and activate MyChart? Yes [facility] 06-29-2023 Note Hospital Medicine History and Physical 06/29/2023 8:02 PM THE HOSPITALIST TEAM PREFERS TO USE [employer] CHAT FOR COMMUNICATION 7AM-7PM. IF I DO NOT RESPOND WITHIN 15 MINUTES, PLEASE PAGE ME/CALL THROUGH THE GROUNDS SUPERVISOR. FROM 7PM-7AM, PLEASE PAGE [phone](COVR) Chief Complaint Shortness on breath History of Present Illness Leanne Higgins is an 48 y.o. female who came from home with SOB, patient with no significant past medical history, she presented to [facility] yesterday with worsening cough and shortness of breath has been going on for 5 weeks, she was coughing up green sputum in the beginning and get better then got worse again, she also been having some right chest pain with breathing mainly when she lies flat, she gets winded easily. Patient underwent chest x-ray per report showing cardiac enlargement with a prominence of bronchovascular markings, CTA was negative for PE but did show diffuse groundglass opacity with pleural effusion and left heart enlargement considering congestive heart failure, CBC and CMP unremarkable, TSH 11 influenza A&B/COVID negative EKG reportedly unremarkable troponin were normal, proBNP more than 3000, echo showing ejection fraction 25 to 30%, patient required oxygen supplement, was placed on diuretics and she was diuresed total of 4 L, currently on room air. Cardiology team asked to transfer the patient to [facility] for cardiac cath. At time of the arrival to [facility], patient was sitting on the bed, on room air, not in distress, vitally stable. 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 Review of System and Physical Exam Temp: [36.4 ???C (97.5 ???F)] 36.4 ???C (97.5 ???F) Heart Rate: [96-98] 98 Resp: [21] 21 BP: (144-153)/(102-110) 153/110 Physical Exam Constitutional: General: She is not in acute distress. Appearance: Normal appearance. She is normal weight. HENT: Head: Normocephalic and atraumatic. Cardiovascular: Rate and Rhythm: Normal rate and regular rhythm. Pulses: Normal pulses. Heart sounds: Normal heart sounds. Pulmonary: Effort: Pulmonary effort is normal. Breath sounds: Normal breath sounds. Comments: Diminished breath sounds at bases Abdominal: General: Abdomen is flat. Bowel sounds are normal. Palpations: Abdomen is soft. Musculoskeletal: General: No swelling, tenderness, deformity or signs of injury. Normal range of motion. Right lower leg: Edema present. Left lower leg: Edema present. Skin: General: Skin is warm and dry. Neurological: General: No focal deficit present. Mental Status: She is alert and oriented to person, place, and time. Mental status is at baseline. Review of Systems All other systems reviewed and are negative. Problem List Patient Active Problem List Diagnosis Date Noted Acute systolic heart failure ([facility]) 06/29/2023 Assessment and Plan # New systolic congestive heart failure - Ejection fraction 25 to 30%, troponin within normal at [facility], with no EKG changes reportedly -Any clear etiology need to rule out ischemia versus myocarditis from viral infection -Will get full respiratory panel - Will obtain new set of troponin, and EKG - Reportedly patient was diuresed 4 L - Will obtain chest x-ray, continue with Lasix 40 twice daily - Monitor I's and O's and daily weight -Checking lipid profile and A1c - Will consult cardiology for possible cath, keep the patient n.p.o. after midnight # Hypothyroidism -New diagnosis, TSH 11 - Start levothyroxine 50 mics # Pneumonia - Continue with ceftriaxone azithromycin course VTE Prophylaxis: Heparin subcutaneous ----- Focus of this inpatient stay will remain on problems that need acute care setting for care. We will review available studies and will order additional labs, imaging and other studies as appropriate. As needed medicines are ordered as appropriate. VTE Prophylaxis will be ordered as appropriate. Please see above for management plan for individual hospital problems. Home medications are reviewed and will be continued as appropriate. Patient will be continued to be followed during this hospital stay by a member of [facility]. Past Medical History No past medical history on file. Past Surgical History No past surgical history on file. Social History Social History Socioeconomic History Marital status: Spouse name: Not on file Number of children: Not on file Years of education: Not on file Highest education level: Not on file Occupational History Not on file Tobacco Use Smoking status: Never Passive exposure: Past Smokeless tobacco: Never Substance and Se (more content not included)... [facility] Summary Purpose Family History No Family History Records FoundNo Family History Records FoundNo Family History Records FoundNo Family History Records Found Advance Directives No Advanced Directives Records FoundNo Advanced Directives Records FoundNo Advanced Directives Records FoundNo Advanced Directives Records Found Additional Source Comments INFORMATION SOURCE (unrecogn ized section and content) DATE CREATED AUTHOR 08/16/2017 Emilio Atwood [facility] DATE CREATED AUTHOR AUTHOR'S ORGANIZ ATION 08/16/2017 [facility] DATE CREATED AUTHOR AUTHOR'S ORGANIZ ATION 06/08/2018 [facility] DATE CREATED AUTHOR AUTHOR'S ORGANIZ ATION 10/10/2023 [facility] Care Teams (unrecognized sec tion and content) Food Preparation Worker Relationship Specialty Start Date End Date Kathy Bruce MD [address], [place] [id number] PCP - General Family Medicine 03/22/17 Food Preparation Worker Relationship Specialty Start Date End Date Kathy Bruce MD [address] [place] [address] PCP - General Family Medicine 03/22/17 [employer] Work[employer] Relationship Specialty Start Date End Date Kathy Bruce MD [address], [place] [id number] PCP - General Family Medicine 03/22/17 FOR RECORDS PERTAINING TO PATIENTS WHO ARE OR HAVE BEEN ENROLLED IN A CHEMICAL DEPENDENCY/SUBSTANCEABUSE PROGRAM, SOME INFORMATION MAY BE OMITTED. This clinical summary was aggregated from multiple sources. Caution should be exercised in using it in the provision of clinical care. This summary normalizes information from multiple sources, and as a consequence, information in this document may materially change the coding, format and clinical context of patient data. In addition, data may be omitted in some cases. CLINICAL DECISIONS SHOULD BE BASED ON THE PRIMARY CLINICAL RECORDS. [employer] provides no warranty or guarantee of the accuracy or completeness of information in this document.
[2023-10-27 14:55] LABS: Free T4 0.96 ng/dL (0.76-1.46)
[2023-10-27 14:59] LABS: Thyroid Stimulating Hormone 5.532 uIU/mL (0.358-3.740)
== END 2023-10-27 13:46 | disposition home or self-care (01) ==
PROVIDERS: PCP Family Medicine; Visit Provider Family Medicine
DX: E03.9 Hypothyroidism, unspecified (principal)
CPT/HCPCS: 36415; 84439; 84443

== ENCOUNTER 2024-01-31 15:45 | Outpatient (OUT) | payer SELFPAY | END 2024-01-31 15:46 | disposition home or self-care (01) | LOC: LAB 15:46 | PROVIDERS: PCP Family Medicine; Visit Provider Family Medicine | DX: E03.9 Hypothyroidism, unspecified (principal) | CPT/HCPCS: 36415; 84439; 84443 ==

== ENCOUNTER 2024-03-25 12:42 | Outpatient (OUT) | payer SELFPAY ==
--- OUTSIDE RECORDS SUMMARY | 2024-03-25 12:54 | XMS_ITS | CCD ---
Author Organization [facility] Care Team Providers Care Facility Environmental Technician Name Role Phone Timmis, Evon H. Unavailable Unavailable Timmis, Evon H. Unavailable Unavailable Timmis, Evon H. Unavailable Unavailable KATHY BRUCE~[phone] UNKNOWN Unavailable Unavailable Timmis, Evon H. Unavailable Unavailable Timmis, Evon H. Unavailable Unavailable Timmis, Evon H. Unavailable Unavailable KATHY BRUCE~[phone] UNKNOWN Unavailable Unavailable ARIC AN Admitting Unavailable ARIC AN Attending Unavailable KATHY BRUCE Primary Care Unavailable JAIRON RENDON Consulting Unavailable ARIC AN Consulting Unavailable ARIC AN Admitting Unavailable ARIC AN Attending Unavailable KATHY BRUCE Primary Care Unavailable ARIC AN Consulting Unavailable ARIC AN Admitting Unavailable ARIC AN Attending Unavailable KATHY BRUCE Primary Care Unavailable FRANK SCALES Consulting Unavailable JVUE, ARIC Consulting Unavailable KATHY BRUCE Admitting Unavailable KATHY BRUCE Attending Unavailable KATHY BRUCE Primary Care Unavailable KATHY BRUCE Consulting Unavailable Kathy Bruce MD Primary Care Provider [phone] Kathy Bruce MD Primary Care Provider PAULA CHANG Referring Unavailable HORANI, MARIELLA Admitting Unavailable BOAZ BROOKE Attending Unavailable PRADEEP PAYNE Attending Unavailable PRADEEP PAYNE Attending Unavailable HORANI, MARIELLA Referring Unavailable HORANI, MARIELLA Referring Unavailable HORANI, MARIELLA Referring Unavailable HORANI, MARIELLA Referring Unavailable DONNY CAMPOS Attending Unavailable Medications Current Medications Medication Drug Class(es) Dates Sig (Normalized) Sig (Original) cefdinir 300 mg oral capsule (1 source) Cephalosporin Antibacterial Start: 12-12-19 take 300 mg by mouth twice daily Cefdinir Active 300 MG PO Twice daily December 12, 2023 12:00am cycloSPORINE 0.5 mg/ml ophthalmic suspension (3 sources) Calcineurin Inhibitor Immunosuppressant take 1 drop(s) into the eye(s) twice daily cycloSPORINE (RESTASIS) 0.05 % ophthalmic emulsion 1 Drop 2 times daily. 0 Active dapagliflozin 10 mg oral tablet (1 source) Sodium-Glucose Cotransporter 2 Inhibitor Start: 07-13-19 take 1 tablet by mouth once daily Dapagliflozin Propanediol (Farxiga) 10 mg tablet Active 10 MG PO Daily July 13, 2023 12:00am hydroCHLOROthiazide 25 mg oral tablet (3 sources) Thiazide Diuretic take 1 tablet by mouth once daily hydrochlorothiazide (HYDRODIURIL) 25 MG tablet Take 25 mg by mouth daily. 0 Active levothyroxine sodium 0.075 mg oral tablet (6 sources) l-Thyroxine Start: 10-31-19 take 75 ug by mouth once daily Levothyroxine Active 75 MCG PO Daily October 31, 2023 9:45am Start: 07-13-2023 End: 10-31-2023 take 50 ug by mouth once daily Levothyroxine Discontin ued 50 MCG PO Daily July 13, 2023 10:09am October 31, 2023 9:45am take 1 tablet by xuan th once daily levothyroxine (SYNTHROID) 100 MCG tablet Take 100 mcg by mouth daily. 0 Active lisinopril 10 mg oral tablet (3 sources) Angiotensin Converting Enzyme Inhibitor Start: 09-22-2017 lisinopril (ZESTRIL) 10 MG tablet meloxicam 15 mg oral tablet (3 sources) Nonsteroidal Anti-inflammatory Drug Start: 10-11-2017 take 1 tablet by mouth once daily as needed meloxicam (MOBIC) 15 MG tablet Take 1 Tablet by mouth daily as needed. 90 Tablet 1 10/11/2017 Active 24 hr metoprolol succinate 25 mg extended release oral tablet (1 source) beta-Adrenergic Irina Start: 07-13-2023 take 25 mg by mouth once daily Metoprolol Succinate Active 25 MG PO Daily July 13, 2023 12:00am Multiple Vitamins-Minerals (CENTRUM ORAL) (3 sources) Multiple Vitamins-Minerals (CENTRUM ORAL) Take by mouth. 0 Active spironolactone 25 mg oral tablet (1 source) Aldosterone Antagonist Start: 07-13-2023 take 25 mg by mouth once daily Spironolactone Active 25 MG PO Daily July 13, 2023 12:00am Completed/Discontinued Medications Medication Drug Class(es) Dates Sig (Normalized) Sig (Original) atorvastatin 20 mg oral tablet (1 source) HMG-CoA Reductase Inhibitor Start: 07-13-2023 End: 12-12-2023 take 20 mg by mouth once daily Atorvastatin Discontinued 20 MG PO Daily July 13, 2023 12:00am December 12, 2023 3:19pm Problems Active Problems Problem Classification Problem Date Documented Da te Episodic/Chronic Cardiac dysrhythmias (1 source) Sinus tachycardia; Translations: [Tachycardia, unspecified] 07-19-2023 Episodic Congestive heart failure; nonhypertensive (5 sources) Congestive heart failure; Translations: [Heart failure, unspecified] Onset: 06-29-2023 07-19-2023 Chronic Essential hypertension (2 sources) Essential (primary) hypertension; Translations: [Hypertensive disorder] Onset: 06-07-2018 07-19-2023 Chronic Other circulatory disease (1 source) Raynaud's syndrome without gangrene; Translations: [RAYNAUDS SYNDROME WITHOUT GANGRENE] Onset: 08-10-2017 Chronic Other lower respiratory disease (1 source) Dyspnea; Translations: [Shortness of breath] 06-28-2023 Episodic Radha-; endo-; and myocarditis; cardiomyopathy (except that caused by tuberculosis or sexually transmitted disease) (2 sources) Other cardiomyopathies; Translations: [Other cardiomyopathies] Onset: 10-09-2023 Chronic Pneumonia (except that caused by tuberculosis or sexually transmitted disease) (1 source) Community acquired pneumonia; Translations: [Pneumonia, unspecified organism] 07-19-2023 Episodic Systemic lupus erythematosus and connective tissue disorders (3 sources) Sicca syndrome, unspecified; Translations: [Sicca syndrome] Onset: 04-12-2016 04-12-2016 Chronic Thyroid disorders (2 sources) Hypothyroidism, unspecified; Translations: [Hypothyroidism] Onset: 06-07-2018 07-13-2023 Chronic Past or Other Problems Problem Classification [...] Snoring; Translations: [Snoring] Onset: 04-12-2016 04-12-2016 Episodic Other non-traumatic joint disorders (2 sources) Pain in right wrist; Translations: [Pain in right wrist] Onset: 07-25-2023 Episodic Residual codes; unclassified (1 source) Acquired absence of other specified parts of digestive tract; Translations: [ACQ ABSENCE OTH PART DIGESTV TRACT] Onset: 08-10-2017 Episodic Residual codes; unclassified (1 source) Acquired absence of both cervix and uterus; Translations: [ACQUIRED ABSENCE BOTH CERVIX AND UTERUS] Onset: 08-10-2017 Episodic Results Test Name Value Interpretation Reference Range Facility Letter (Out)on 01-10-2024 Letter (Out) [id number] Nancy Higgins ra 1975 F Date Provider Department Center 01/10/2024 Nikita-ASHLEY BASSETT [facility] INT MED Comprehensiv Family History Problem Relation Age of Onset Diabetes Father Family Status - Relation Status Age at Father Normal [facility] Documentationon 11-27-2023 Documentation [id number] Nancy Higgins ra 1975 Provider Department Center 11/27/2023 ROVERTO BAJWA [facility] Family History Problem Relation Age of Onset Diabetes Father Family Status - Relation Status Age at Father Reason for Visit and Comments: PharmD Cardiology Consult [Other] Normal [facility] Laboratory - Chemistry and C hemistry - challengeon 10-27-2023 Free T4 [Mass/Vol] 0.96 ng/dL 0.76-1.46 [facility] TSH Qn 5.532 m[IU]/L High 0.358-3.740 [facility] Office Visiton 10-09-2023 Follow-up visit [id number] Nancy Higgins ra R 1975 Date Provider Department Center 10/09/2023 271-PRADEEP PAYNE CARD [facility] Family History Problem Relation Age of Onset Diabetes Father Family Status - Relation Status Age at Father Level of Service:73372 NC OFFICE/OUTPATIENT ESTABLISHED LOW MDM 20 MIN [facility] Orders Onlyon 10-09-2023 Orders Only [id number] Nancy Higgins ra R 1975 F Date Provider Department [place] 10/09/2023 895-MARIELY MEJIA REX [facility] Family History Problem Relation Age of Onset Diabetes Father Family Status - Relation Status Age at Father [facility] Office Visiton 07-25-2023 Follow-up visit [id number] Nancy Higgins ra R 1975 F Date Provider Department [place] 07/25/2023 271-PRADEEP PAYNE REX [facility] Family History Problem Relation Age of Onset Diabetes Father Family Status - Relation Status Age at Father Level of Service:29268 NC OFFICE/OUTPATIENT ESTABLISHED MOD MDM 30 MIN [facility] Orders Onlyon 07-21-2023 Orders Only [id number] Nancy Higgins ra R 1975 F Date Provider Department [place] 07/21/2023 [id number], HISTORICAL REX [facility] No family history on file [facility] 37on 07-10-2023 37 --Medicines were ref illed: [...] help. For Entresto/ Sacubitril-vasartan: Call [employer] at [phone], Monday through Monday 8am to 8pm Eastern time For Farxiga/Dapagliflozin Call [place] [facility] [place] at [phone], Monday through Monday 9am to 6pm Eastern time Kind regards, Donny Campos, [facility] Cardiovascular Medicine Contact me via [employer] Bus Driver Vesna Partida [phone] [facility] Telemedicineon 07-10-2023 [id number] [facility] 1975 [facility] Date Provider Department Center 07/10/2023 [id number] AUGUSTINE [facility] Family History Problem Relation Age of Onset Diabetes Father Family Status - Relation Status Age at Father Level of Service:91702 NC OFFICE/OUTPATIENT ESTABLISHED MOD MDM 30 MIN [facility] 3607-05-2023 36 Discharge date: Call date: 07/05/23 Spoke with: patient HF Follow-up date: 07/10/23 Med reconciliation completed: yes Questions/Concerns: Home meds reviewed with patient. Per pt, she is monitoring daily weights and BP. Pt is aware of her telemed follow up visit and was curious of the process. Teacher Assistant notified pt that the clinic will reach out prior to the appt with instructions. Pt denied any additional questions or concerns. Teacher Assistant provided pt with [facility] and [place] clinic phone numbers. Pt stated she will reach out to [facility] to schedule. [facility] Telephoneon 07-05-2023 Telephone [id number] Nancy Higgins ra 1975 F Date Provider Department Center 07/05/2023 SUNDEEP CANTU [facility] [place] [facility] No family history on file [facility] 36on 07-04-2023 36 Unable to reach pt, VM msg left for call back [facility] 36 VM msg left for pt t o call back [facility] 36 Per Radha otero apt with DIRECTOR OF QUALITY IMPROVEMENT in 3-4 weeks. LM on patient's VM to call back and get scheduled. [facility] Documentationon 07-04-2023 Documentation [id number] Nancy Higgins ra 1975 F Date Provider Department Center 07/04/2023 [id number] HAWLEY [facility] No family history on file Reason for Visit and Comments: HF inpatient satisfaction survey sent. [Other] [facility] 30on 07-03-2023 30 Problem: Pain - Adul t Goal: Verbalizes/displays adequate comfort level or baseline comfort level Outcome: Progressing Flowsheets (Taken 07/03/2023799) Verbalizes/displays adequate comfort level or baseline comfort [...] and behaviors that affect risk of falls [place] fall precautions as indicated by assessment Educate [...] for the shift include hemodynamically stable Normal [facility] BASIC METABOLIC PANELon 05-0 Anion gap [Moles/Vol] 11 mmol/L Normal 7-20 [facility] Comment on above: Performed By: #### L [id number] #### [facility] (BE[facility]) [address] [facility] [address] Calcium [Mass/Vol] 9.3 mg/dL Normal 8.6-10.3 [facility] Comment on above: Performed By: #### L [id number] #### [facility] ([facility]) [address] [facility] [place] [address] Chloride [Moles/Vol] 98 mmol/L Normal 98-107 [facility] Comment on above: Performed By: #### L [id number] #### [facility] ([facility]) [address] [facility] [place] [address] CO2 [Moles/Vol] 29 mmol/L Normal 21-31 [facility] Comment on above: Performed By: #### L [id number] #### [facility] ([facility]) [address] [place] [address] Creatinine [Mass/Vol] 1.15 mg/dL Normal 0.60-1.20 [facility] Comment on above: Performed By: #### L [id number] #### [facility] ([facility]) [address] [place] [address] GLOMERULAR FILTRATION RATE ML/MIN/1.73 SQ M.PREDICTED 58.4 mL/min/1.73m*2 Low >60.0 [facility] Comment on above: Result Comment: The [facility]???s estimated glomerular filtration rate (eGFR) will no [...] individuals. Performed By: #### L [id number] #### [facility] ([facility]) [address] [place] [address] Glucose [Mass/Vol] 93 mg/dL Normal 70-100 [facility] Comment on above: Performed By: #### L [id number] #### [facility] ([facility]) [address] [place] [address] Potassium [Moles/Vol] 3.7 mmol/L Normal 3.5-5.1 [facility] Comment on above: Performed By: #### L [id number] #### [facility] ([facility]) [address] [place] [address] Sodium [Moles/Vol] 134 mmol/L Low 136-145 [facility] Comment on above: Performed By: #### L [id number] #### [facility] ([facility]) [address] [place] [address] Urea nitrogen [Mass/Vol] 26 mg/dL High 7-25 [facility] Comment on above: Performed By: #### L [id number] #### [facility] ([facility]) [address] [place] [address] UREA NITROGEN/CREATININ E (MASS RATIO) IN SER/PLAS 22.6 Normal [facility] Comment on above: Performed By: #### L [id number] #### [facility] ([facility]) [address] [place] [address] CBCon 07-03-2023 Erythrocyte distribution width (RBC) [Ratio] 14.5 % Normal 11.5-15.0 [facility] Comment on above: Performed By: #### L [id number] ####[facility] (BE[facility]ER)[address] [place] [address] ERYTHROCYTE MEAN CORPUSCULAR HEMOGLOBIN CONCENTRATION (G/DL) BY AUTOMATED 33.7 g/dL Normal 32.0-35.0 [facility] Comment on above: Performed By: #### L [id number] ####[facility] (BE[facility]ER)[address] [place] [address] Hematocrit (Bld) [Volume fraction] 41.5 % Normal 36.0-48.0 [facility] Comment on above: Performed By: #### L [id number] ####[facility] ([facility]ER)[address] [place] [address] Hemoglobin (Bld) [Mass/Vol] 14.0 g/dL Normal 12.0-15.0 [facility] Comment on above: Performed By: #### L [id number] ####[facility] (BE[facility]ER)[address] [place] [address] MCH (RBC) [Entitic mass] 28.7 pg Normal 27.0-33.0 [facility] Comment on above: Performed By: #### L [id number] ####[facility] ([facility]ER)[address] [place], [place] [address] MCV (RBC) [Entitic vol] 85.2 fL Normal 82.0-98.0 [facility] Comment on above: Performed By: #### L [id number] ####[facility] ([facility])[address] [place] [address] PLATELETS (10*3/UL) IN BLOOD AUTOMATED COUNT 255 10*3/uL Normal 150-400 [facility] Comment on above: Performed By: #### L [id number] ####[facility] ([facility])[address] [place], [place] [address] RBC (Bld) [#/Vol] 4.87 10*6/uL Normal 3.80-5.00 [facility] Comment on above: Performed By: #### L [id number] ####[facility] [place] [address] WBC (Bld) [#/Vol] 10.95 10*3/uL High 4.00-10.60 [facility] Comment on above: Performed By: #### L [id number] ####[facility] (HONG)[address] [place] [address] CONSULTon 07-03-2023 CONSULT Social Work Consult received for SNF and HHC Patient admitted to [facility] 06/29/2023, from home with complaint of shortness of breath and chest pain; admission diagnosis acute systolic heart failure Patient confirmed PCP is Dr. Kathy Bruce; Patient confirmed any new prescriptions resulting from this admission can be filled through [email or web address] (prior to leaving hospital). Teacher Assistant encouraged Patient to participate in a follow up appointment with her PCP as well as follow up with [facility]-- to monitor any symptoms or [...] and will be her transportation home. Normal [facility] COXSACKIE A9 VIRUS ANTIBODIE Son 07-03-2023 COXSACKIE A SERO 9 TITER 1:8 Normal <1:8 [facility] Comment on above: Result Comment: INTE RPRETIVE INFORMATION: Coxsackie A Serotype 9 Titer Single positive antibody titers of greater than 1:32 may indicate past or current infection. Seroconversion or an increase in titers between acute and convalescent sera of at least fourfold is considered strong evidence of current or recent infection. Performed By: [facility] [address] [place] [address] Plant And Maintenance Technician: Tima William MD, PhD CLIA Number: [id number] Performed By: #### L [id number] #### [facility] (HONG) [address] [place] [address] COXSACKIE B VIRUS ANTIBODIES on 07-03-2023 COXSACKIE B1 ANTIBODY 1:10 Normal <1:10 [facility] Comment on above: Performed By: #### L [id number] #### [facility] [address] [place] [address] COXSACKIE B2 ANTIBODY 1:40 Normal <1:10 [facility] Comment on above: Performed By: #### L [id number] #### [facility] [address] [place] [address] COXSACKIE B3 ANTIBODY <1:10 Normal <1:10 [facility] Comment on above: Performed By: #### L [id number] #### [facility] ([facility] [address] [place] [address] COXSACKIE B4 ANTIBODY 1:20 Normal <1:10 [facility] Comment on above: Performed By: #### L [id number] #### [facility] ([facility]) [address] [place] [address] COXSACKIE B5 ANTIBODY <1:10 Normal <1:10 [facility] Comment on above: Performed By: #### L [id number] #### [facility] ([facility]) [address] [place] [address] COXSACKIE B6 ANTIBODY <1:10 Normal <1:10 [facility] Comment on above: Result Comment: INTE RPRETIVE INFORMATION: Coxsackie B Virus Single positive antibody titers of greater than or equal to 1:80 may indicate past or current infection. Sero- conversion or an increase in titers between acute and convalescent sera of at least fourfold is considered strong evidence of current or recent infection. Performed By: [facility] [address] [place] [address] Plant And Maintenance Technician: Tima William MD, PhD CLIA Number: [id number] Performed By: #### L [id number] #### [facility] ([facility]) [address] [place] [id number] ENTEROVIRUS PCRon 07-03-2023 ENTEROVIRUS PCR Not detected Normal [facility] Comment on above: Result Comment: NOT DETECTED - A negative result does not rule out the presence of PCR inhibitors in the patient specimen or assay specific nucleic acid in concentrations below the level of detection by the assay. INTERPRETIVE INFORMATION: Enterovirus by PCR This test was developed and its performance characteristics determined by [facility]. It has not been cleared or approved by the [place] Food and Drug Administration. This test was performed in a CLIA certified laboratory and is intended for clinical purposes. Performed By: [facility] [address] [place] [id number] Plant And Maintenance Technician: Tima William MD, PhD CLIA Number: [id number] Performed By: #### L [id number] ####[facility] ([facility])[address] [place], [place] [id number] EV SOURCE Plasma [facility] Comment on above: Performed By: #### L [id number] ####[facility] ([facility])[address] [place] [address] HPon 07-03-2023 HP H&P reviewed. The pa tient was examined and there are no changes to the H&P. New HFrEF Proceed with [facility] and Cors [facility] NURSNOTEon 07-03-2023 NURSNOTE Discharge instructio shani reviewed with pt and pt daughter Boby who is at bedside. Provided post cath discharge instructions with pt/family as well, copy of these instructions also given with contact numbers if pt should arrive home and have issues after discharge.Pt and daughter express understanding at this time. [facility] 30on 07-02-2023 30 The patient is Moder ately [...] monitored and maintained or improved Outcome: Progressing [facility] 30 Problem: Pain - Adul t Goal: Verbalizes/displays adequate comfort level or baseline comfort level Outcome: Progressing Flowsheets (Taken 07/02/2023 0912) Verbalizes/displays adequate comfort level or baseline comfort [...] and behaviors that affect risk of falls [place] fall precautions as indicated by assessment Educate [...] goals for the shift include stable VS [facility] 30on 07-01-2023 30 The patient is Moder ately Stable - Low risk of patient condition declining or worsening The patient's goals for the shift include comfort and rest The clinical goals for the shift include stable VS Over the shift, the patient did make progress toward her goals. Normal [facility] 30 The patient is Moder ately Stable [...] and maintained or improved Outcome: Progressing Normal [facility] ANAon 07-01-2023 GERI PATTERN Homogeneous Normal [facility] Comment on above: Performed By: #### L [id number] #### [facility] ([facility]) [address] [place] [address] GERI TITER 1:80 High <=1:40 [facility] Comment on above: Result Comment: Test performed using GATO IFA GERI Hep-2 Test, a pre-standardized assay designed for the qualitative and semi-quantitative detection of antinuclear antibodies. Performed By: #### L [id number] #### [facility] ([facility]) [address] [place] [address] ANTI-DNA ANTIBODY, DOUBLE-ST RANDEDon 07-01-2023 DSDNA ANTIBODY TITER <1:10 Normal <1:10 [facility] Comment on above: Performed By: #### L [id number] #### [facility] ([facility]) [address] [place] [address] ANTI-HOLLIE 1 ANTIBODY, IGGon ANTI HOLLIE-1 IGG 2 AU/mL Normal 0-40 [facility] Comment on above: Result Comment: INTE RPRETIVE INFORMATION: Hollie-1 Antibody, IgG 29 AU/mL or less.........Negative 30-40 AU/mL..............Equivocal 41 AU/mL or greater......Positive Presence of Hollie-1 (antihistidyl transfer RNA [t-RNA] synthetase) antibody is associated with polymyositis and may also be seen in patients with dermatomyositis. Hollie-1 antibody is associated with pulmonary involvement (interstitial lung disease), Raynaud phenomenon, arthritis, and nuclear weapons mechanical specialist's hands (implicated in antisynthetase syndrome). Performed By: [facility] [address] [place] [address] Plant And Maintenance Technician: Tima William MD, PhD CLIA Number: [id number] Performed By: #### L [id number] #### [facility] [address] [place] [address] BASIC METABOLIC PANELon 05-0 Anion gap [Moles/Vol] 12 mmol/L Normal 7-20 [facility] Comment on above: Performed By: #### L [id number] #### [facility] ([facility] [address] [place] [address] Calcium [Mass/Vol] 9.1 mg/dL Normal 8.6-10.3 [facility] Comment on above: Performed By: #### L [id number] #### [facility] ([facility]) [address] [place] [address] Chloride [Moles/Vol] 101 mmol/L Normal 98-107 [facility] Comment on above: Performed By: #### L [id number] #### [facility] ([facility]) [address] [place] [address] CO2 [Moles/Vol] 27 mmol/L Normal 21-31 [facility] Comment on above: Performed By: #### L [id number] #### [facility] ([facility]) [address] [place] [address] Creatinine [Mass/Vol] 1.12 mg/dL Normal 0.60-1.20 [facility] Comment on above: Performed By: #### L [id number] #### [facility] ([facility]) [address] [place] [address] GLOMERULAR FILTRATION RATE ML/MIN/1.73 SQ M.PREDICTED 60.3 mL/min/1.73m*2 Normal >60.0 [facility] Comment on above: Result Comment: The [facility]???s estimated glomerular filtration rate (eGFR) will no [...] individuals. Performed By: #### L [id number] #### [facility] ([facility]) [address] [facility] [place] [address] Glucose [Mass/Vol] 91 mg/dL Normal 70-100 [facility] Comment on above: Performed By: #### L [id number] #### [facility] ([facility]) [address] [place] [address] Potassium [Moles/Vol] 3.8 mmol/L Normal 3.5-5.1 [facility] Comment on above: Performed By: #### L [id number] #### [facility] ([facility]) [address] [facility] [place] [address] Sodium [Moles/Vol] 136 mmol/L Normal 136-145 [facility] Comment on above: Performed By: #### L [id number] #### [facility] ([facility]) [address] [place] [address] Urea nitrogen [Mass/Vol] 17 mg/dL Normal 7-25 [facility] Comment on above: Performed By: #### L [id number] #### [facility] ([facility]) [address] [place] [address] UREA NITROGEN/CREATININ E (MASS RATIO) IN SER/PLAS 15.2 Normal [facility] Comment on above: Performed By: #### L [id number] #### [facility] ([facility]) [address] [place] [address] SJOGRENS SYNDROME ANTIBODIES A AND Bon 07-01-2023 KIRAN TO SSA (RO) ANTIBODY Negative Normal Negative [facility] Comment on above: Performed By: #### L [id number] #### [facility] ([facility]) [address] [place] [address] KIRAN TO SSB ([place]) ANTIBODY Negative Normal Negative [facility] Comment on above: Performed By: #### L [id number] #### [facility] ([facility]) [address] [place] [address] SPUTUM CULTUREon 07-01-2023 Bacteria identified Cx Nom (Unsp spec) Moderate Growth Colonies Consistent with Upper Respiratory Leyda Normal [facility] Comment on above: Performed By: #### L [id number] ####[facility] ([facility])[address] [place] [address] GRAM STAIN RESULT Normal [facility] Comment on above: Result Comment: 10-2 5 Squamous Epithelial Cells Per Low Power Field 10-25 Polys Per Low Power Field Few Gram positive cocci in clusters Rare Gram negative bacilli Performed By: #### L [id number] ####[facility] ([facility])[address] [place] [address] THYROID PEROXIDASE ANTIBODYo n 07-01-2023 THYROPEROXIDASE AB (IU/ML) IN SER/PLAS 458.4 IU/mL High 0.0-9.0 [facility] Comment on above: Result Comment: Perf ormed By: [facility] [address] [place] [address] Plant And Maintenance Technician: Tima William MD, PhD CLIA Number: [id number] Performed By: #### L [id number] #### [facility] ([facility]) [address] [place] [address] 30on 06-30-2023 30 The patient is Moder ately Stable [...] and maintained or improved Outcome: Progressing Normal [facility] 30 Daily Case Managemen t Update Multidisciplinary rounds have been completed. Barriers to Discharge: Pending clinical course of new acute onset HF; EF 13-20%; IV Laix 40mg BID; pending heart cath today. Plan to discharge home when medically cleared. Patient currently is self-pay, [facility] notified and met with patient to [...] Score: 24 OT Six Click Score: Normal [facility] 30 The patient is Moder ately Stable [...] with appropriate resources Outcome: Not Progressing Normal [facility] CONSULTon 06-30-2023 CONSULT -------- Attestation signed by [...] edema, which have all since improved. At [facility], CXR showed cardiac enlargement, CTA chest showed diffused ground glass with pleural effusion, pro-BNP >3000, ECHO 25%-30% (new), and she was transferred to [facility] for potential cardiac catheterization. TSH 19, normal [...] -- 91 19 94 % -- -- 06/29/232099 (!) 146/100 -- -- 91 20 97 [...] Value Ventricular Rate 89 Atrial Rate 89 NC Interval 140 QRS DURATION 134 QT Interval 430 QTC CALCULATION(BAZETT) 523 P Gantt 17 R-Gantt -43 T Wave Gantt 27 Impression Normal sinus rhythm Possible Left atrial enlargement Left axis deviation Left bundle branch block Abnormal ECG When compared with ECG of 29-JUN-2023 21:15, No significant change was found Confirmed by Tierra DURAN, BARBARA Amin ([id number]) on 06/30/2023 1:00:29 PM Lab Results Component Value Date TROPONINI 0.00 06/30/2023 Transthoracic echo (TTE) complete Result Date: 06/30/2023 1 1 [facility] [address] [place] [address] [phone] (fax) Echocardiogram-[facility] Name: LEANNE HIGGINS Study Date: 06/30/2023 01:00 PM B/P: 106 mmHg/74 mmHg HR: Date of : 1975 Location: [facility] Height: 64 in. Age: 48 year(s) Patient Room: [facility] Weight: 190 lb. Gender: Female Patient Status: [...] The calculat (more content not included)... Normal [facility] TROPONIN Ion 06-30-2023 Troponin I.cardiac [Mass/Vol] 0.00 ng/mL Normal 0.00-0.04 [facility] Comment on above: Performed By: #### L [id number] ####[facility] ([facility])[address] [place] [address] 30on 06-29-2023 30 The patient is Moder [...] and maintained or improved Outcome: Progressing Normal [facility] B-TYPE NATRIURETIC PEPTIDEon 06-29-2023 Natriuretic peptide B (Bld) [Mass/Vol] 562 pg/mL High 0-100 [facility] Comment on above: Performed By: #### L [id number] ####[facility] ([facility])[address] [place] [address] CBC WITH AUTO DIFFERENTIALon 06-29-2023 Basophils (Bld) [#/Vol] 0.03 10*3/uL Normal 0.00-0.20 [facility] Comment on above: Performed By: #### L [id number] #### [facility] ([facility]) [address] [place] [address] Basophils/100 WBC (Bld) 0.3 % Normal 0.0-1.0 [facility] Comment on above: Performed By: #### L [id number] #### [facility] ([facility]) [address] [place] [address] Eosinophils (Bld) [#/Vol] 0.15 10*3/uL Normal 0.00-0.50 [facility] Comment on above: Performed By: #### L [id number] #### [facility] ([facility]) [address] [place] [address] Eosinophils/100 WBC (Bld) 1.5 % Normal 0.0-6.0 [facility] Comment on above: Performed By: #### L [id number] #### [facility] ([facility]) [address] [place] [address] Erythrocyte distribution width (RBC) [Ratio] 14.6 % Normal 11.5-15.0 [facility] Comment on above: Performed By: #### L [id number] #### [facility] ([facility]) [address] [place] [address] ERYTHROCYTE MEAN CORPUSCULAR HEMOGLOBIN CONCENTRATION (G/DL) BY AUTOMATED 32.8 g/dL Normal 32.0-35.0 [facility] Comment on above: Performed By: #### L [id number] #### [facility] ([facility] [address] [place] [address] Hematocrit (Bld) [Volume fraction] 41.2 % Normal 36.0-48.0 [facility] Comment on above: Performed By: #### L [id number] #### [facility] ([facility]) [address] [place] [address] Hemoglobin (Bld) [Mass/Vol] 13.5 g/dL Normal 12.0-15.0 [facility] Comment on above: Performed By: #### L [id number] #### [facility] ([facility] [address] [place] [address] Immature granulocytes (Bld) [#/Vol] 0.04 10*3/uL Normal 0.00-0.20 [facility] Comment on above: Performed By: #### L [id number] #### [facility] ([facility]) [address] [place] [address] Immature granulocytes/100 WBC (Bld) 0.4 % Normal 0.0-1.0 [facility] Comment on above: Performed By: #### L [id number] #### [facility] ([facility]) [address] [place] [address] Lymphocytes (Bld) [#/Vol] 2.36 10*3/uL Normal 1.20-4.00 [facility] Comment on above: Performed By: #### L [id number] #### [facility] ([facility]) [address] [place] [address] Lymphocytes/100 WBC (Bld) 24.3 % Normal 20.0-45.0 [facility] Comment on above: Performed By: #### L [id number] #### [facility] ([facility]) [address] [place] [address] MCH (RBC) [Entitic mass] 28.0 pg Normal 27.0-33.0 [facility] Comment on above: Performed By: #### L [id number] #### [facility] ([facility]) [address] [place] [address] MCV (RBC) [Entitic vol] 85.5 fL Normal 82.0-98.0 [facility] Comment on above: Performed By: #### L [id number] #### [facility] ([facility]) [address] [place] [address] Monocytes (Bld) [#/Vol] 1.01 10*3/uL High 0.10-1.00 [facility] Comment on above: Performed By: #### L [id number] #### [facility] ([facility]) [address] [place] [address] Monocytes/100 WBC (Bld) 10.4 % Normal 5.0-12.0 [facility] Comment on above: Performed By: #### L [id number] #### [facility] ([facility]) [address] [place] [address] Neutrophils (Bld) [#/Vol] 6.11 10*3/uL Normal 1.60-7.60 [facility] Comment on above: Performed By: #### L [id number] #### [facility] ([facility]) [address] [place] [address] Neutrophils/100 WBC (Bld) 63.1 % Normal 40.0-72.0 [facility] Comment on above: Performed By: #### L [id number] #### [facility] ([facility]) [address] [place] [address] NRBC (PER 100 WBCS) BY AUTOMATED COUNT 0.0 % Normal 0 [facility] Comment on above: Performed By: #### L [id number] #### [facility] ([facility]) [address] [place] [address] PLATELETS (10*3/UL) IN BLOOD AUTOMATED COUNT 285 10*3/uL Normal 150-400 [facility] Comment on above: Performed By: #### L [id number] #### [facility] ([facility]) [address] [place] [address] RBC (Bld) [#/Vol] 4.82 10*6/uL Normal 3.80-5.00 [facility] Comment on above: Performed By: #### L [id number] #### [facility] ([facility]) [address] [place] [address] WBC (Bld) [#/Vol] 9.70 10*3/uL Normal 4.00-10.60 [facility] Comment on above: Performed By: #### L [id number] #### [facility] ([facility]) [address] [place] [address] COMPREHENSIVE METABOLIC PANE Ethan 06-29-2023 Albumin [Mass/Vol] 4.0 g/dL Normal 3.5-5.7 [facility] Comment on above: Performed By: #### L [id number] ####[facility] ([facility])[address] [place] [address] ALP [Catalytic activity/Vol] 74 U/L Normal 34-104 [facility] Comment on above: Performed By: #### L [id number] ####[facility] ([facility])[address] [place] [address] ALT [Catalytic activity/Vol] 68 U/L High 7-52 [facility] Comment on above: Performed By: #### L [id number] ####[facility] ([facility])[address] [place] [address] Anion gap [Moles/Vol] 15 mmol/L Normal 7-20 [facility] Comment on above: Performed By: #### L [id number] ####[facility] ([facility])[address] [place] [address] AST [Catalytic activity/Vol] 41 U/L High 13-39 [facility] Comment on above: Performed By: #### L [id number] ####[facility] ([facility])[address] [place] [address] Bilirubin [Mass/Vol] 0.6 mg/dL Normal 0.3-1.0 [facility] Comment on above: Performed By: #### L [id number] ####[facility] ([facility])[address] [place] [address] Calcium [Mass/Vol] 9.3 mg/dL Normal 8.6-10.3 [facility] Comment on above: Performed By: #### L [id number] ####[facility] ([facility])[address] [place] [address] Chloride [Moles/Vol] 101 mmol/L Normal 98-107 [facility] Comment on above: Performed By: #### L [id number] ####[facility] ([facility])[address] [place] [address] CO2 [Moles/Vol] 24 mmol/L Normal 21-31 [facility] Comment on above: Performed By: #### L [id number] ####[facility] ([facility])[address] [place] [address] Creatinine [Mass/Vol] 0.82 mg/dL Normal 0.60-1.20 [facility] Comment on above: Performed By: #### L [id number] ####[facility] ([facility])[address] [place] [address] GLOMERULAR FILTRATION RATE ML/MIN/1.73 SQ M.PREDICTED 87.6 mL/min/1.73m*2 Normal >60.0 [facility] Comment on above: Result Comment: The [facility]???s estimated glomerular filtration rate (eGFR) will no [...] group of individuals. Performed By: #### L [id number] ####[facility] ([facility])[address] [place] [address] Glucose [Mass/Vol] 104 mg/dL High 70-100 [facility] Comment on above: Performed By: #### L [id number] ####[facility] ([facility])[address] [place] [address] Potassium [Moles/Vol] 3.9 mmol/L Normal 3.5-5.1 [facility] Comment on above: Performed By: #### L [id number] ####[facility] ([facility])[address] [place] [address] Protein [Mass/Vol] 6.6 g/dL Normal 6.0-8.3 [facility] Comment on above: Performed By: #### L [id number] ####[facility] ([facility])[address] [place] [address] Sodium [Moles/Vol] 136 mmol/L Normal 136-145 [facility] Comment on above: Performed By: #### L [id number] ####[facility] ([facility])[address] [place] [address] Urea nitrogen [Mass/Vol] 12 mg/dL Normal 7-25 [facility] Comment on above: Performed By: #### L [id number] ####[facility] ([facility])[address] [place] [address] UREA NITROGEN/CREATININ E (MASS RATIO) IN SER/PLAS 14.6 Normal [facility] Comment on above: Performed By: #### L [id number] ####[facility] ([facility])[address] [place] [address] HEMOGLOBIN A1Con 06-29-2023 Glucose [Mass/Vol] 97 mg/dL Normal [facility] Comment on above: Performed By: #### L [id number] #### [facility] ([facility]) [address] [place] [address] HbA1c (Bld) [Mass fraction] 5.0 % Normal 4.0-6.0 [facility] Comment on above: Performed By: #### L [id number] #### [facility] ([facility]) [address] [place] [address] LIPID PANELon 06-29-2023 CHOL/HDL 3.8 mg/dL Normal [facility] Comment on above: Performed By: #### L [id number] #### [facility] [address] [place] [address] Cholesterol [Mass/Vol] 176 mg/dL Normal 120-200 [facility] Comment on above: Performed By: #### L [id number] #### [facility] ([facility] [address] [place] [address] Magnesium [Mass/Vol] 161 mg/dL High 40-149 [facility] Comment on above: Result Comment: TRIG LYCERIDE REFERENCE RANGE: 20 YEARS AND OLDER CARDIOVASCULAR RISK LESS THAN 150 mg/dL LOW RISK 150 TO 199 mg/dL BORDERLINE RISK 200 mg/dL AND GREATER HIGH RISK Performed By: #### L [id number] #### [facility] ([facility]) [address] [place] [address] Magnesium [Mass/Vol] 98 mg/dL Normal 0-160 [facility] Comment on above: Performed By: #### L [id number] #### [facility] ([facility]) [address] [place] [address] Magnesium [Mass/Vol] 46 mg/dL Normal 23-92 [facility] Comment on above: Performed By: #### L [id number] #### [facility] ([facility]) [address] [place] [address] NON HDL CHOL. (LDL+VLDL) 130 Normal [facility] Comment on above: Performed By: #### L [id number] #### [facility] ([facility]) [address] [place] [address] TOTAL VLDL-C 32 mg/dL Normal 0-40 [facility] Comment on above: Performed By: #### L [id number] #### [facility] ([facility]) [address] [place] [address] MAGNESIUMon 06-29-2023 Magnesium [Mass/Vol] 2.2 mg/dL Normal 1.9-2.7 [facility] Comment on above: Performed By: #### L [id number] #### [facility] [address] [place] [address] RESPIRATORY VIRUS PCR PANELo n 06-29-2023 ADENOVIRUS DETECTION BY PCR Not detected Normal Not Detected [facility] Comment on above: Order Comment: Testi ng methodology is a multiplexed nucleic acid test intended for the simultaneous qualitative detection and differentiation of nucleic acids from multiple viral and bacterial respiratory organisms in nasopharyngeal swabs (SCRUBBER OPERATOR). Performed By: #### L [id number] ####[facility] ([facility])[address] [facility] [place] [address] B. PARAPERTUSSIS DNA Not detected Normal Not Detected [facility] Comment on above: Order Comment: Testi ng methodology is a multiplexed nucleic acid test intended for the simultaneous qualitative detection and differentiation of nucleic acids from multiple viral and bacterial respiratory organisms in nasopharyngeal swabs (SCRUBBER OPERATOR). Performed By: #### L [id number] ####[facility] ([facility])[address] [facility] [place] [address] BORDETELLA PERTUSSIS DNA PRESENCE IN UNSPECIFIED SPECIMEN BY NC* Not detected Normal Not Detected [facility] Comment on above: Order Comment: Testi ng methodology is a multiplexed nucleic acid test intended for the simultaneous qualitative detection and differentiation of nucleic acids from multiple viral and bacterial respiratory organisms in nasopharyngeal swabs (SCRUBBER OPERATOR). Performed By: #### L [id number] ####[facility] ([facility])[address] [facility] [place] [address] CHLAMYDOPHILA PNEUMONIAE Not detected Normal Not Detected [facility] Comment on above: Order Comment: Testi ng methodology is a multiplexed nucleic acid test intended for the simultaneous qualitative detection and differentiation of nucleic acids from multiple viral and bacterial respiratory organisms in nasopharyngeal swabs (SCRUBBER OPERATOR). Performed By: #### L [id number] ####[facility] ([facility])[address] [facility] [place] [address] CORONAVIRUS [id number] Not detected Normal Not Detected [facility] Comment on above: Order Comment: Testi ng methodology is a multiplexed nucleic acid test intended for the simultaneous qualitative detection and differentiation of nucleic acids from multiple viral and bacterial respiratory organisms in nasopharyngeal swabs (SCRUBBER OPERATOR). Performed By: #### L [id number] ####[facility] ([facility])[address] [facility] [place] [address] CORONAVIRUS [id number] Not detected Normal Not Detected [facility] Comment on above: Order Comment: Testi ng methodology is a multiplexed nucleic acid test intended for the simultaneous qualitative detection and differentiation of nucleic acids from multiple viral and bacterial respiratory organisms in nasopharyngeal swabs (SCRUBBER OPERATOR). Performed By: #### L [id number] ####[facility] ([facility])[address] [place] [address] CORONAVIRUS [id number] Not detected Normal Not Detected [facility] Comment on above: Order Comment: Testi ng methodology is a multiplexed nucleic acid test intended for the simultaneous qualitative detection and differentiation of nucleic acids from multiple viral and bacterial respiratory organisms in nasopharyngeal swabs (SCRUBBER OPERATOR). Performed By: #### L [id number] ####[facility] ([facility])[address] [address] CORONAVIRUS [id number] Not detected Normal Not Detected [facility] Comment on above: Order Comment: Testi ng methodology is a multiplexed nucleic acid test intended for the simultaneous qualitative detection and differentiation of nucleic acids from multiple viral and bacterial respiratory organisms in nasopharyngeal swabs (SCRUBBER OPERATOR). Performed By: #### L [id number] ####[facility] ([facility])[address] [facility] [address] HUMAN METAPNEUMOVIRUS Not detected Normal Not Detected [facility] Comment on above: Order Comment: Testi ng methodology is a multiplexed nucleic acid test intended for the simultaneous qualitative detection and differentiation of nucleic acids from multiple viral and bacterial respiratory organisms in nasopharyngeal swabs (SCRUBBER OPERATOR). Performed By: #### L [id number] ####[facility] ([facility])[address] [place] [address] HUMAN RHINOVIRUS+ENTEROV IRUS Not detected Normal Not Detected [facility] Comment on above: Order Comment: Testi ng methodology is a multiplexed nucleic acid test intended for the simultaneous qualitative detection and differentiation of nucleic acids from multiple viral and bacterial respiratory organisms in nasopharyngeal swabs (SCRUBBER OPERATOR). Performed By: #### L [id number] ####[facility] ([facility])[address] [place] [address] INFLUENZA A Not detected Normal Not Detected [facility] Comment on above: Order Comment: Testi ng methodology is a multiplexed nucleic acid test intended for the simultaneous qualitative detection and differentiation of nucleic acids from multiple viral and bacterial respiratory organisms in nasopharyngeal swabs (SCRUBBER OPERATOR). Performed By: #### L [id number] ####[facility] ([facility])[address] [place] [address] INFLUENZA B Not detected Normal Not Detected [facility] Comment on above: Order Comment: Testi ng methodology is a multiplexed nucleic acid test intended for the simultaneous qualitative detection and differentiation of nucleic acids from multiple viral and bacterial respiratory organisms in nasopharyngeal swabs (SCRUBBER OPERATOR). Performed By: #### L [id number] ####[facility] ([facility])[address] [place] [address] MYCOPLASMA PNEUMONIAE Not detected Normal Not Detected [facility] Comment on above: Order Comment: Testi ng methodology is a multiplexed nucleic acid test intended for the simultaneous qualitative detection and differentiation of nucleic acids from multiple viral and bacterial respiratory organisms in nasopharyngeal swabs (SCRUBBER OPERATOR). Performed By: #### L [id number] ####[facility] ([facility])[address] [place] [address] PARAINFLUENZA 1 Not detected Normal Not Detected [facility] Comment on above: Order Comment: Testi ng methodology is a multiplexed nucleic acid test intended for the simultaneous qualitative detection and differentiation of nucleic acids from multiple viral and bacterial respiratory organisms in nasopharyngeal swabs (SCRUBBER OPERATOR). Performed By: #### L [id number] ####[facility] ([facility])[address] [place] [address] PARAINFLUENZA 2 Not detected Normal Not Detected [facility] Comment on above: Order Comment: Testi ng methodology is a multiplexed nucleic acid test intended for the simultaneous qualitative detection and differentiation of nucleic acids from multiple viral and bacterial respiratory organisms in nasopharyngeal swabs (SCRUBBER OPERATOR). Performed By: #### L [id number] ####[facility] ([facility])[address] [place] [address] PARAINFLUENZA 3 Not detected Normal Not Detected [facility] Comment on above: Order Comment: Testi ng methodology is a multiplexed nucleic acid test intended for the simultaneous qualitative detection and differentiation of nucleic acids from multiple viral and bacterial respiratory organisms in nasopharyngeal swabs (SCRUBBER OPERATOR). Performed By: #### L [id number] ####[facility] ([facility])[address] [facility] [place] [address] PARAINFLUENZA 4 Not detected Normal Not Detected [facility] Comment on above: Order Comment: Testi ng methodology is a multiplexed nucleic acid test intended for the simultaneous qualitative detection and differentiation of nucleic acids from multiple viral and bacterial respiratory organisms in nasopharyngeal swabs (SCRUBBER OPERATOR). Performed By: #### L [id number] ####[facility] ([facility])[address] [facility] [place] [address] RESP SYNCYTIAL VIRUS Not detected Normal Not Detected [facility] Comment on above: Order Comment: Testi ng methodology is a multiplexed nucleic acid test intended for the simultaneous qualitative detection and differentiation of nucleic acids from multiple viral and bacterial respiratory organisms in nasopharyngeal swabs (SCRUBBER OPERATOR). Performed By: #### L [id number] ####[facility] ([facility])[address] [place] [address] SARS-CoV-2 (COVID-19) RNA WILLOW+probe Ql (Unsp spec) Not detected Normal Not Detected [facility] Comment on above: Order Comment: Testi ng methodology is a multiplexed nucleic acid test intended for the simultaneous qualitative detection and differentiation of nucleic acids from multiple viral and bacterial respiratory organisms in nasopharyngeal swabs (SCRUBBER OPERATOR). Performed By: #### L [id number] ####[facility] ([facility])[address] [place] [address] T4, FREEon 06-29-2023 THYROXINE (T4) FREE (NG/DL) IN SER/PLAS 0.72 ng/dL Normal 0.71-1.85 [facility] Comment on above: Performed By: #### L [id number] ####[facility] ([facility])[address] [place] [address] TROPONIN Ion 06-29-2023 Troponin I.cardiac [Mass/Vol] 0.01 ng/mL Normal 0.00-0.04 [facility] Comment on above: Performed By: #### L [id number] #### [facility] ([facility]) [address] [place] [address] Troponin I.cardiac [Mass/Vol] 0.01 ng/mL Normal 0.00-0.04 [facility] Comment on above: Performed By: #### L [id number] #### [facility] ([facility] [address] [place] [address] TSH3 REFLEX TO FT4on 024 THYROTROPIN (MIU/L) IN SER/PLAS BY DETECTION LIMIT <= 0.05 MIU/L 18.96 mIU/L High 0.34-5.60 [facility] Comment on above: Performed By: #### L [id number] #### [facility] ([facility]) [address] [place] [address] FREE T4on 05-28-2018 T4 free mass conc 1.07 ng/dL Normal 0.78-2.19 [facility] Comment on above: Performed By: #### F T4 #### [facility] [address] [address] Alina Guillermina PROF CHEM 8 (BAS METB)on Anion gap molar conc 13.5 mmol/L Normal [facility] Comment on above: Performed By: #### B MP, TSH #### [facility] [address] [id number] Alina Guillermina Calcium mass conc 9.1 mg/dL Normal 8.4-10.2 [facility] Comment on above: Performed By: #### B MP, TSH #### [facility] [address] [address] Alina Guillermina Chloride molar conc 101 mmol/L Normal 98-107 [facility] Comment on above: Performed By: #### B MP, TSH #### [facility] [address] [address] Alina Guillermina CO2 molar conc 26.4 mmol/L Normal 22.0-30.0 [facility] Comment on above: Performed By: #### B MP, TSH #### [facility] [address] [address] Alina Guillermina Creatinine mass conc 0.81 mg/dL Normal 0.52-1.04 [facility] Comment on above: Performed By: #### B MP, TSH #### [facility] [address] [address] Alina Guillermina EGFR-AF ZAMBIAN >60 Normal >=60 [facility] Comment on above: Performed By: #### B MP, TSH #### [facility] [address] [address] Alina Guillermina EGFR-NON AF ZAMBIAN >60 Normal >=60 [facility] Comment on above: Performed By: #### B MP, TSH #### [facility] [address] [address] Alina Guillermina Glucose mass conc 86 mg/dL Normal 74-106 [facility] Comment on above: Performed By: #### B MP, TSH #### [facility] [address] [place] [address] Alina Guillermina Potassium molar conc 3.9 mmol/L Normal 3.4-5.0 [facility] Comment on above: Performed By: #### B MP, TSH #### [facility] [address] [place] [address] Alina Guillermina Sodium molar conc 137 mmol/L Normal 137-145 [facility] Comment on above: Performed By: #### B MP, TSH #### [facility] [address] [place] [address] Alina Guillermina Urea nitrogen mass conc 10.0 mg/dL Normal 7.0-17.0 [facility] Comment on above: Performed By: #### B MP, TSH #### [facility] [address] [place] [address] Alina Guillermina Urea nitrogen/Creatinin e mass ratio 12.3 mg/mg Normal [facility] Comment on above: Performed By: #### B MP, TSH #### [facility] [address] [place] [address] Alina Guillermina TSHon 05-28-2018 Thyrotropin Qn 2.953 uIU/mL Normal 0.470-4.680 [facility] Comment on above: Performed By: #### B MP, TSH #### [facility] [address] [place] [address] Alina Guillermina Thyrotropin Qn SEE BELOW Normal [facility] Comment on above: Result Comment: <0.3 4 UIU/ml HYPERTHYROID 0.34-5.60 UIU/ml EUTHYROID >5.60 UIU/ml HYPOTHYROID Performed By: #### B MP, TSH #### [facility] [address] [id number] Alina Sarmiento PROF CHEM 8 (BAS METB)on Anion gap molar conc 7.5 mmol/L Normal [facility] Comment on above: Performed By: #### B MP #### [facility] [address] [address] Alina Guillermina Calcium mass conc 10.2 mg/dL Normal 8.4-10.2 [facility] Comment on above: Performed By: #### B MP #### [facility] [address] [address] Alina Guillermina Chloride molar conc 103 mmol/L Normal 98-107 [facility] Comment on above: Performed By: #### B MP #### [facility] [address] [address] Alina Guillermina CO2 molar conc 28.0 mmol/L Normal 22.0-30.0 [facility] Comment on above: Performed By: #### B MP #### [facility] [address] [address] Alina Guillermina Creatinine mass conc 0.82 mg/dL Normal 0.52-1.04 [facility] Comment on above: Performed By: #### B MP #### [facility] [address] [address] Alina Guillermina EGFR-AF ZAMBIAN >60 Normal >=60 [facility] Comment on above: Performed By: #### B MP #### [facility] [address] [id number] Alina Guillermina EGFR-NON AF ZAMBIAN >60 Normal >=60 [facility] Comment on above: Performed By: #### B MP #### [facility] [address] [address] Alina Guillermina Glucose mass conc 88 mg/dL Normal 74-106 [facility] Comment on above: Performed By: #### B MP #### [facility] [address] [place], [place] [address] Alina Sarmiento Potassium molar conc 3.9 mmol/L Normal 3.4-5.0 [facility] Comment on above: Performed By: #### B MP #### [facility] [address] [place], [place] [address] Alina Sarmiento Sodium molar conc 135 mmol/L Critically low 137-145 [facility] Comment on above: Performed By: #### B MP #### [facility] [address] [place], [place] [address] Alina Sarmiento Urea nitrogen mass conc 8.0 mg/dL Normal 7.0-17.0 [facility] Comment on above: Performed By: #### B MP #### [facility] [address] [place], [place] [address] Alina Guillermina Urea nitrogen/Creatinin e mass ratio 10.3 mg/mg Normal [facility] Comment on above: Performed By: #### B MP #### [facility] [address] [place], [place] [address] Alina Sarmiento Coding Summary.on 07-19-2017 Coding Summary. CODING DATE: 018 [facility] STATUS: Home (Routine DC) PAYOR: [employer] APC DESCRIPTION 5164 Level 4 ENT Procedures ADMIT DX: REASON FOR VISIT DX: K11.23 Chronic sialoadenitis FINAL DX: PRINCIPAL: K11.23 Chronic sialoadenitis SECONDARY: I10 Essential (primary) hypertension E03.9 Hypothyroidism, unspecified I73.00 Raynaud's syndrome without gangrene PYMT PROC APC STAT DESCRIPTION DOCTOR NAME DATE 21595 5164 J1 Excision of lesion of Evon Mendoza MD. 06/29/2017 mucosa and submucosa, vestibule of mouth; with simple repair NOTE: The code number assigned matches the documented diagnosis and / or procedure in the patient's chart. However, the narrative phrase printed from the coding software may appear abbreviated, or result in slightly different terminology. Coded By: Christine Smallwood Date Saved: 07/19/2017 03:25 pm Normal [facility] MRI ANKLE RT WO CONon 2017 MRI ANKLE RT WO CON [address] [place] [address] Patient: LEANNE HIGGINS Exam Date: 07/12/2017 : 1975 Gender:F Ordering : ARIC AN Admission #: [id number] Family : Order #: [id number] CLICK HERE TO VIEW EXAM RADIOLOGY REPORT [...] Rendon M.D. on 07/12/2017 at 16:26 Normal [facility] Operative Reporton 05-10-201 8 Operative Report Date of Surgery: 06/29/2017SURGEON: [...] in good condition.Evon Mendoza Jr., M.D.lkrDictated: 07/05/2017 #[id number]: 07/05/2017 #[id number]: Ayush Sosa Jr., M.D. [facility] Comment on above: Result Comment: Elec tronically Signed By: Evon Mendoza MD\.br\Date and Time Signed: 07/06/17 09:46 EDT Main OR Intraoperative Recor don 06-30-2017 Main OR Intraoperative Record IntraOp Document Type FT Summary Primary Physician: Evon Mendoza MD Finalized Date/Time: 06/30/17 12:43:58 Pt. Name: LEANNE HGIGINS/Sex: 1975 Female Med Rec #: [id number] Physician: Evon Mendoza MD Financial #: [id number] Pt. Type: A Room/Bed: AS34/01 Admit/Disch: 06/29/17 11:24:00 - 06/29/17 15:35:00 Institution: Case Times FT Entry 1 Patient Times In Room 06/29/17 14:40:00 Out Room 06/29/17 15:08:00 Procedure Times Start 06/29/17 14:51:00 Stop 06/29/17 15:04:00 Anesthesia Times Last Modified By: Gadiel SAMPSON, Maryann VICENTE 06/29/17 15:09:11 General Comments: 06/30/17 CHART OPEN TO REVIEW AND SEND CHARGES. L GADIEL SAMPSON Case Attendance FT Entry 1 Entry 2 Entry 3 Case Attendee Kiran PULIDO, Evon Lin RN, Kim Waterman RN Role Performed Surgeon - Primary Optometry Professor - Primary Optometry Professor - Primary Time In 06/29/17 14:47:00 06/29/17 14:40:00 06/29/17 14:40:00 Time Out 06/29/17 15:08:00 06/29/17 15:08:00 06/29/17 14:57:00 Procedure FROZEN SECTION(.), FROZEN SECTION(.), FROZEN SECTION(.), TONGUE LESION TONGUE LESION TONGUE LESION EXCISION(.) EXCISION(.) EXCISION(.) Comments Last Modified By: Guillermina Lin RN, RN, Guillermina Russell RN 06/29/17 15:09:27 06/29/17 [...] n/a PreOp Antibiotic No Given Time Out Kiran PULIDO, Evon Ortiz, Time Out Complete 06/29/17 14:48:00 Participants Kim [...] SECTION Primary Procedure Yes No Primary Surgeon Kiran PULIDO, Evon Mendoza MD, Evon Ortiz Start 06/29/17 14:51:00 06/29/17 14:51:00 Stop 06/29/17 [...] Outcomes Met? Yes Last Modified By: Gadiel RN, CINTHIA, Maryann Page 06/30/17 12:41:04 Post-Care Text: The patient is free from signs and symptoms of infection Skin Assessment (Pre Procedure) FT Pre-Care Text: Implements protective measures to prevent skin/ tissue injury due to thermal or mechanical sources Evaluates for signs and symptoms of physical injury to skin and tissue Entry 1 Skin Integrity Intact, Central Garage, Warm, and Skin Abnormality No Dry Outcomes [...] RN Patient Status Stable Skin. Condition Intact, Central Garage, Warm, and Dry Airway Maintenance Oxygen in [...] safely administered during the perioperative period For [facility] please see scanned medication reconcilliation form for [...] AIR Quantity 1 Aid PLUS LOWER BODY [[id number]][F] Fluid/[place] Unit Mistral warming system Setting HIGH/43 Body Site Lower anterior torso Last Modified By: Kim Huizar RN 06/29/17 11:47:44 Case Comments Finalized By: CINTHIA Castro RN, Lou Ann Document Signatures Signed By: Guillermina Lin RN 06/29/17 15:11 CINTHIA Castro RN, Lou Ann 06/30/17 12:43 CINTHIA Castro RN, Lou Ann 06/30/17 12:43 Normal [facility] Inpatient Patient Summaryon 06-29-2017 [facility] Inst[facility] INFORMATION Name: LEANNE HIGGINS PHYSICIANS Admitting Physician: Evon Mendoza MDAttending Physician: Evon Mendoza MD PCP: Car BRUCE MD Diagnosis: Chronic sialoadenitis Comment: PATIENT EDUCATION INFORMATIONInstructions:Medi cation Leaflets:Follow up:With: Address: When: Evon Mendoza Comments: Keep scheduled appointment MEDICATION LISTComment: Normal [facility] Operative Reporton 8 Operative Report Patient: Liborio HIGGINS Age: 42 years Sex: Female : 1975 Associated Diagnoses: None Author: Timmis MD, Evon H. Postoperative Information Procedure: R/O lower lip minor salivary glands Preoperative Diagnosis: Chronic sialoadenitis (EII64-OW K11.23, Working, Medical). Postoperative Diagnosis: Chronic sialoadenitis (CIS34-FE K11.23, Discharge, Medical). Performed by: Evon Mendoza MD. Findings: Grossly normal anatomy. Specimens Removed: Minor salivary glands x 6. Estimated Blood Loss: 2 ml. Medications Complications: None. Normal [facility] Comment on above: Result Comment: Elec tronically Signed By: Evon Mendoza MD\.br\Date and Time Signed: 06/29/17 15:20 EDT Patient Education - Texton 0 06-29-2017 Patient Education - Text Normal [facility] SURGICAL PATHOLOGYon 018 SURGICAL PATHOLOGY Specimen #: [id number] Physician: EVON MEDNOZA M.D. FINAL DIAGNOSISMinor salivary gland, biopsies (A, [...] chromogenicin-situ hybridization tests have been [facility] [place] (-[facility]) yvrose manner consistent with CLIA requirements. One or more of these tests havenot been cleared or approved by the FDA. RT-[facility] is regulated under CLIA asqualified to perform [...] formalin in one cassette.Gross examination performed at [facility], [address] [place], [place] [address]JMB 07/05/2017B. Received in formalin labeled as minor salivary gland biopsy consistsof four pieces of pink-faulkner soft tissue aggregating to 0.6 x 0.5 x 0.2 cm.The entire specimen is submitted in cassette B1. Gross [place] [address] [place]/srj 06/29/2017 of Report: 07/06/2017Date of Procedure: 06/29/2017Date of Receipt: 06/29/2017Submitted by: EVON MENDOZA M.D.Location: Diagnostic interpretation performed at [place] [address]. Normal [facility] Comment on above: Performed By: #### S ####See report for performing lab information. Coding Summary.on 06-23-2017 Coding Summary. CODING DATE: 018 FINAL [facility] STATUS: Home (Routine DC) PAYOR: Commercial [...] Ferris Date Saved: 06/23/2017 11:02 am Normal [facility] Auto Diffon 06-22-2017 Basophils Auto #/vol (Bld) 0.0 E9/L Normal 0.0-0.2 [facility] Comment on above: Order Comment: Order Added by Discern Expert. Performed By: #### 2 [id number], [id number], [id number] ####[address] [place] [address] Basophils Auto #/vol (Bld) 0.3 % Normal 0.0-2.0 [facility] Comment on above: Order Comment: Order Added by Discern Expert. Performed By: #### 2 883386, [id number], [id number] ####[facility] [address] [place] [address] Eosinophils 0.1 E9/L Normal 0.0-0.5 [facility] Comment on above: Order Comment: Order Added by Discern Expert. Performed By: #### 2 412259, [id number], [id number] ####[address] [place] [address] Eosinophils/100 leukocytes 0.9 % Normal 0.0-8.0 [facility] Comment on above: Order Comment: Order Added by Discern Expert. Performed By: #### 2 056431, [id number], [id number] ####[facility] [address] [place] [address] Lymphocytes 1.7 E9/L Normal 1.0-4.0 [facility] Comment on above: Order Comment: Order Added by Discern Expert. Performed By: #### 2 581897, [id number], [id number] ####[facility] [address] [place] [address] Lymphocytes/100 leukocytes 27.2 % Normal 14.0-50.0 [facility] Comment on above: Order Comment: Order Added by Discern Expert. Performed By: #### 2 464039, [id number], [id number] ####[address] [place] [address] Monocytes 0.7 E9/L Normal 0.2-1.0 [facility] Comment on above: Order Comment: Order Added by Discern Expert. Performed By: #### 2 864531, [id number], [id number] ####[address] [address] Monocytes/100 leukocytes 10.4 % Normal 4.0-14.0 [facility] Comment on above: Order Comment: Order Added by Discern Expert. Performed By: #### 2 763440, 8171753, [id number] ####[address] [address] Neutrophils 3.8 E9/L Normal 2.0-7.5 [facility] Comment on above: Order Comment: Order Added by Discern Expert. Performed By: #### 2 900328, 8310516, [id number] ####[address] [address] Neutrophils/100 leukocytes 61.2 % Normal 36.0-75.0 [facility] Comment on above: Order Comment: Order Added by Discern Expert. Performed By: #### 2 767002, 1083041, [id number] ####[address] [address] BUNon 06-22-2017 Urea nitrogen 10 mg/dL Normal 5-21 [facility] Comment on above: Performed By: #### 2 306018, 9686072, [id number], [id number] ####[address] [place] [address] CBC w/ Auto Diffon 8 Erythrocyte distribution width Auto Ratio (RBC) 13.4 % Normal 10.9-14.2 [facility] Comment on above: Performed By: #### 2 824729, 5711379, [id number] ####[address] [place] [address] Erythrocytes (RBC) 4.7 E12/L Normal 4.3-5.9 [facility] Comment on above: Performed By: #### 2 918838, 3743138, [id number] ####[address] [address] Hematocrit (HCT) 38.7 % Normal 34.0-46.0 [facility] Comment on above: Performed By: #### 2 882239, 1318594, [id number] ####[address] [place] [address] Hemoglobin mass conc (Bld) 13.5 g/dL Normal 12.0-16.0 [facility] Comment on above: Performed By: #### 2 569710, 4354347, [id number] ####[address] [address] MCH 29.0 pg Normal 27.0-34.0 [facility] Comment on above: Performed By: #### 2 985401, 7540871, [id number] ####[address] [address] MCHC mass conc (RBC) 34.9 g/dL Normal 31.4-39.3 [facility] Comment on above: Performed By: #### 2 879739, 6407593, [id number] ####[address] [place] [address] MCV 83.2 fL Normal 80.0-100.0 [facility] Comment on above: Performed By: #### 2 393696, 6602151, [id number] ####[address] [place] [address] Platelet mean volume (PMV) 9.9 fL Normal 6.4-10.8 [facility] Comment on above: Performed By: #### 2 666383, 5758988, [id number] ####[facility] [address] [place] [address] Platelets 206.0 E9/L Normal 150.0-500.0 [facility] Comment on above: Performed By: #### 2 005631, 5715818, [id number] ####[facility] [address] [place] [address] WBC (Leukocytes) 6.3 E9/L Normal 4.0-11.0 [facility] Comment on above: Performed By: #### 2 444223, 0817501, [id number] ####[facility] [address] [place] [address] Creatinineon 06-22-2017 Creatinine 0.9 mg/dL Normal 0.5-1.3 [facility] [facility] Comment on above: Performed By: #### 2 [id number], [id number], [id number], [id number] ####[facility] [address] [place] [address] [place] 06-22-2017 Anion gap 11 mmol/L Normal 6-16 [facility] Comment on above: Performed By: #### 2 [id number], [id number], [id number], [id number] ####[facility] [address] [place] [address] Chloride 104 mmol/L Normal 101-111 [facility] Comment on above: Performed By: #### 2 337119, [id number], [id number], [id number] ####[facility] [address] [place] [address] CO2 26 mmol/L Normal 21-31 [facility] Comment on above: Performed By: #### 2 068180, [id number], [id number], [id number] ####[facility] [address] [place] [address] Potassium molar conc 4.0 mmol/L Normal 3.5-5.3 [facility] Comment on above: Performed By: #### 2 177114, [id number], [id number], [id number] ####[facility] [address] [place] [address] Sodium 137 mmol/L Normal 135-145 [facility] Comment on above: Performed By: #### 2 [id number], [id number], [id number], [id number] ####[facility] [address] [place] [address] PT & PTTon 06-22-2017 aPTT 27.7 second(s) Normal 25.1-36.5 [facility] Comment on above: Result Comment: Hepa rin therapeutic range (represented by Anti-Factor Xa activity of 0.2 - 0.4 U/mL) corresponds to PTT of 53.9 - 87.4 sec. Performed By: #### 2 [id number], [id number], [id number] ####[facility] [address] [place] [address] INR Coag RelTime (PPP) 1.1 {INR} Invalid Interpretation Code [facility] Comment on above: Result Comment: INR results are specifically intended to assess patients stabilized on long-term Anticoagulation therapy suggested INR?s ?Less Intensive Anticoagulation? 2.0 ? 3.0Conventional Range 3.0 ? 4.5 Performed By: #### 2 [id number], [id number], [id number] ####[facility] [address] [place] [address] Prothrombin time (PT) Coag time (PPP) 12.5 second(s) Normal 10.2-12.9 [facility] Comment on above: Performed By: #### 2 478329, [id number], [id number] ####[facility] [address] [place] [address] eGFRon 06-22-2017 eGFR (black) mL/min/{1.73_m2} Normal >=59 [facility] Comment on above: Order Comment: Order added by Discern Expert. Result Comment: eGFR is race adjusted. AA=. Performed By: #### 2 338882, [id number], [id number], [id number] ####[facility] [address] [place] [address] eGFR (non-black) mL/min/{1.73_m2} Normal >=59 [facility] Comment on above: Order Comment: Order added by Discern Expert. Result Comment: Costume Design Teacher stefano kidney disease could be indicated at eGFR's of less than 60 mL/min/1.73m2. Kidney failure is indicated at less than 15 mL/min/1.73m2. Performed By: #### 2 380299, [id number], [id number], [id number] ####[facility] [address] [place] [address] Vital Signs Date Time Vital Sign Value Performing Clinician Faci lity 12-12-2023 15:16-0400 Body height 160.02 cm [facility] 12-12-2023 15:16-0400 Body mass index (BMI) [Ratio] 23.4 kg/m2 [facility] 12-12-2023 15:16-0400 Body temperature 98.5 [degF] [facility] 12-12-2023 15:16-0400 Body weight 59.98 kg [facility] 12-12-2023 15:16-0400 Diastolic blood pressure 80 mm[Hg] [facility] 12-12-2023 15:16-0400 Heart rate 74 /min [facility] 12-12-2023 15:16-0400 Respiratory rate 16 /min [facility] 12-12-2023 15:16-0400 SaO2% (BldA) [Mass fraction] 99 % [facility] 12-12-2023 15:16-0400 Systolic blood pressure 136 mm[Hg] [facility] Encounters Encounter Date Encounter Type Care Provider Facility Start: 12-12-2023 End: 12-12-2023 ambulatory [facility] Work Phone: Start: 12-12-2023 End: 12-12-2023 Patient encounter procedure [facility] Work Phone: Start: 10-27-2023 Non-patient / Non-visit [facility] Work Phone: Start: 10-09-2023 End: 10-09-2023 ambulatory [facility] Start: 07-25-2023 End: 07-25-2023 ambulatory [facility] Start: 07-10-2023 End: 07-10-2023 ambulatory DONNY CAMPOS [facility] Start: 07-02-2023 Letter encounter Kathy Bruce MD Work Phone: [facility] Start: 06-30-2023 Evaluation and manag ement of inpatient MARIELLA TAYLOR [facility] Start: 06-29-2023 End: 07-03-2023 Evaluation and management of inpatient PAULA CHANG [facility] Start: 06-26-2022 Letter encounter Kathy Bruce MD Work Phone: [facility] Start: 12-28-2021 Letter encounter Kathy Bruce MD Work Phone: [facility] Start: 06-07-2018 Encounter for genera l adult medical examination without abnormal findings [facility] Start: 05-28-2018 End: 05-29-2018 Patient encounter procedure KATYH BRUCE Facility:[facility] Start: 08-08-2017 End: 08-08-2017 [facility] Start: 08-03-2017 Encounter for preprocedural cardiovascular examination [facility] Start: 08-03-2017 Encounter for preprocedural laboratory examination [facility] Start: 08-01-2017 End: 08-02-2017 Patient encounter procedure [facility] Facility:[facility] Start: 07-12-2017 End: 07-13-2017 Patient encounter procedure [facility] 2[facility] Facility:[facility] Start: 06-29-2017 End: 06-29-2017 Ambulatory Evon Mendoza [facility] Start: 06-22-2017 End: 06-23-2017 Ambulatory Evon Mendoza Facility[facility] Encounter for genera l adult medical examination without abnormal findings [facility] Encounter for preprocedural cardiovascular examination [facility] Plan of Treatment Date Care Activity Detail Author Start: 2024 Shingles (RZV) Vacci ne (1 of 2) Shingles (RZV) Vaccine (1 of 2) [facility] Start: 10-28-2022 COVID-19 Vaccine ( season) COVID-19 Vaccine ( season) [facility] Start: 11-27-2021 Influenza vaccination Influenza Vacc ine (#1) [facility] Start: 07-23-2020 COVID-19 Vaccine (3 - Booster for Pfizer series) COVID-19 Vaccine (3 - Booster for Pfizer series) [facility] Start: 2019 Cholesterol [Mass/vo lume] in Serum or Plasma Cholesterol [facility] Start: 2019 Screening for malign ant neoplasm of colon [facility] Start: 2014 Screening for malign ant neoplasm of breast Mammography [facility] Start: 1995 Screening for malign ant neoplasm of cervix Pap Smear [facility] Start: 1993 Hepatitis A (HAV) Va ccine (optional start 19+ years) Hepatitis A (HAV) Vaccine (optional start 19+ years) [facility] Start: 1992 Hepatitis C screening Hepatitis C An tibody [facility] Start: 1992 Tetanus + diphtheria + acellular pertussis vaccine (product) Tdap Booster [facility] Start: 1989 HIV screening HIV Test [facility] Start: 1974 Hepatitis B vaccination Hepati tis B (HBV) Vaccine (1 of 3 - 3-dose series) [facility] Start: [facility] Screening for malign ant neoplasm of colon Colonoscopy [facility] Payers Date Payer Category Payer Private Health Insurance 1975 Unknown [id number] 1975 Unknown [id number] 1974 Unknown [id number] 1974 Unknown [id number] 1959 Private Health Insurance [id number] 1959 Private Health Insurance [id number] 1959 Private Health Insurance [id number] Private Health Insurance [employer] [id number] Social History Date Type Detail Facility Start: 04-06-2016 End: 07-13-2023 Tobacco smoking status NHIS Never smoked tobacco [facility] Start: 04-06-2016 Tobacco use and exposure Smokeless tobacco non-user [facility] Start: 1975 Sex Assigned At Not [facility] file [facility] Start: 10-11-2017 History of Social function [facility] Start: 10-11-2017 Tobacco use panel [facility] Start: 1975 Sex Assigned At Female F [facility] Clinical Notes 06-29-2023 to 11-27-2023 Note Date & Type Note Facility 11-27-2023 Note LVM to schedule init ial appointment and discuss HF management. Requested call back. Roverto Lancaster PharmD Cardiology Outpatient Clinical Pharmacist 12/15/23 [facility] 11-27-2023 Note [facility]. Left VM requesting a callback. Paula Slade PharmD, PGY1 Development Editor 12/05/23 [place] [facility] 11-27-2023 Note Have attempted to re ach out to patient multiple times with no response. At this time, clinic pharmacist will not continue to reach out to patient. Will send letter asking patient to call office. Of note, there is no follow up scheduled with cardiology at this time Ashley Bassett PharmD, [facility] 01/10/24 [facility] 11-27-2023 Note [facility] for HF management. Left VM requesting a callback. Paula Slade PharmD, PGY1 Development Editor 01/02/24 [place] [facility] 11-27-2023 Note Called patient to nh hedule initial appointment. Left VM requesting call back. [facility] 11-27-2023 Note Called patient to nh hedule an initial appointment. Left VM requesting a callback. Paula Park, PharmD, PGY1 Development Editor 11/28/23 [place] [facility] 11-27-2023 Note PharmD Consult - Hea rt Failure GDMT Management Referring Provider: Dr. Payne [facility] Most recent visit: 10/09/2023 Insurance: Unknown SUBJECTIVE/OBJECTIVE PharmD received consult from provider to assist with HF management. Pertinent PMH includes NICM, HTN, HLD Most recent EF: 20 - 25% (06/29/2023) Most recent hospitalization: 06/29/23 - HF Current HF Medications: ACEi/ARB/ARNi: Entresto 24-26mg BID Beta irina: Metoprolol succinate 25mg daily MRA: Spironolactone 25mg daily SGLT2i: Farxiga 10mg daily PERTINENT LABS/VITALS Lab Results Component Value Date GLUCOSE 93 07/03/2023 CALCIUM 9.3 07/03/2023 NA 134 (L) 07/03/2023 K 3.7 07/03/2023 CO2 29 07/03/2023 CL 98 07/03/2023 BUN 26 (H) 07/03/2023 CREATININE 1.15 07/03/2023 ASSESSMENT/PLAN HFrEF with EF 20 - 25% (06/29/2023). Current regimen includes ARNi, BB, MRA, SGLT2i. Patient indicated for dose optimization of Entresto and Metoprolol. - Recommend increase Entresto to 49-51 mg BID and/or metoprolol succinate to 50mg daily as BP/HR allows. - Will contact patient to discuss HF medication management with pharmacist to discuss next steps and optimize therapy Notes: Seen at [facility]; will likely be phone management. Roverto Lancaster, TigistD Cardiology Outpatient Clinical Pharmacist 11/27/2023 [facility] 10-09-2023 Note [facility] Cardiology Clinic Note Chief Complaint: Patient [...] not been over 130 systoic. HPI: Leanne R Fuehring is a 48 y.o. female With a [...] extremities. PSYCH: appropriate mood, affect, and judgement. [facility]ogram[facility] Name: LEANNE HIGGINS Study Date: 06/30/2023 01:00 PM B/P: 106 mmHg/74 mmHg HR: Date of : 1975 Location: [facility] Height: 64 in. Age: 48 year(s) Patient [...] studies suggest yun (more content not included)... [facility] 07-25-2023 Note [facility] Cardiology Clinic Note Chief Complaint: Patient here for follow up [facility] for new onset systolic and diastolic heart [...] edema, which have all since improved. At [facility], CXR showed cardiac enlargement, CTA chest showed diffused ground glass with pleural effusion, pro-BNP >3000, ECHO 25%-30% (new), and she was transferred to [facility] for potential cardiac catheterization. TSH 19, normal [...] years ago Is not currently seeing an canoe inspector final Used to drink but not heavily prior [...] extremities. PSYCH: appropriate mood, affect, and judgement. [facility]chocardiogram[facility] Name: LEANNE HIGGINS Study Date: 06/30/2023 01:00 PM B/P: 106 mmHg/74 mmHg HR: Date of : 1975 Location: [facility] Height: 64 in. Age: 48 year(s) Patient Room : 3184 Weight: 190 lb. Gend (more content not included)... [facility] 07-10-2023 Note [facility] CARDIOLOGY PROGR ESS NOTE [...] edema, which have all since improved. At [facility], CXR showed cardiac enlargement, CTA chest showed diffused ground glass with pleural effusion, pro-BNP >3000, ECHO 25%-30% (new), and she was transferred to [facility] for potential cardiac catheterization. TSH 19, normal free T4, A1c 5.0%, LDL 98, TG 161. Echo here at [facility] found EF 13-20% with mild LVDD and eccentric LV hypertrophy, normal RV size and funciton. She was diuresed over the weekend starting GDMT. 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 She discharged on new Metoprolol XL, [...] The patient was notified that using 3rd republican telecommunication application (e.g., [employer]) is not HIPPA compliant and may carry some privacy risks. Yes The visit was conducted [id number] with the use of audio and video technology Ping Communication between patient and provider for a virtual [...] in progress. Limited by no insurance, given [employer] card --has started Metoprolol xl 25mg /d, [...] Followup: appt 07/15/[address] Payne at [facility] Sent info about PAP to (more content not included)... [facility] 07-03-2023 Note Patient admitted to the hospital for: Acute systolic heart failure. Chart echo from 06/30/2023 reports: The calculated Biplane EF is 13 %. The EF is 20 % visually. Current echo report qualifies for Cardiac Rehab services per CMS eligibility criteria. A Cardiac Rehab referral diagnosis code must also meet CMS criteria. Kristin Ramesh, RN, BSN Cardiology Outpatient Coordinator Cardiopulmonary Rehab [facility] 07-03-2023 Note Adult Nutrition Asse ssment: Name: Leanne Higgins Date: 1975 Date of Visit: 07/03/23 Received HF education consult. This was completed by RD on 06/29. See note from same date for full assessment. [facility] 07-03-2023 Note Hospital Medicine Discharge Summary Final [...] edema, which have all since improved. At [facility], CXR showed cardiac enlargement, CTA chest showed diffused ground glass with pleural effusion, pro-BNP >3000, ECHO 25%-30% (new), and she was transferred to [facility] for potential cardiac catheterization. TSH 19, normal [...] Medications These medications [facility] [address] [place] [address] [facility] [place] [address] [address] atorvastatin 20 mg tablet dapagliflozin propanediol 10 mg levothyroxine 50 mcg tablet metoprolol succinate XL 25 mg 24 hr tablet valsartan 80 mg tablet Leanne has No Known Allergies. Disposition: Home or Self Care () Discharge Condition: Stable Code Status: Full Code Diagnostic Results Hematology: Results from last 7 days Lab Units 07/03/23 0714 06/29/232048 WBC AUTO 10*3/uL 10.95* 9.70 HEMOGLOBIN g/dL 14.0 13.5 HEMATOCRIT % 41.5 41.2 MCV fL 85.2 85.5 PLATELETS AUTO 10*3/uL 255 285 Chemistry: Results from last 7 days Lab Units 07/03/23 0459 05/0454406/29/232047 SODIUM mmol/L 134* 136 136 POTASSIUM mmol/L [...] Status Coxsackie A9 virus antibodies Collected (07/03/23 123) Coxsackie B virus antibodies Collected (07/03/23 123) Enterovirus PCR Collected (07/03/231230) GERI In process Anti-DNA antibody, double-stranded In [...] follow up, counselin (more content not included)... [facility] 07-03-2023 Note Patient: Leanne lo Procedure Information Date/Time: 07/03/23 1100 Procedures: Coronary angiography Right heart cath Location: [facility] [employer] [facility] / [facility] (Cath) Providers: Omkar Banks MD [...] consented to blood products. Additional Equipment Requests [facility] 07-03-2023 Note [facility] CARDIOLOGY INPAT IENT PROGRESS [...] Value Ventricular Rate 89 Atrial Rate 89 NC Interval 140 QRS DURATION 134 QT Interval 430 QTC CALCULATION(BAZETT) 523 P Gantt 17 R-Gantt -43 T Wave Gantt 27 Impression Normal sinus rhythm Possible Left atrial enlargement Left axis deviation Left bundle branch block Abnormal ECG When compared with ECG o (more content not included)... [facility] 07-02-2023 Note ---- Attestation signed by Isac [...] edema, which have all since improved. At [facility], CXR showed cardiac enlargement, CTA chest showed diffused ground glass with pleural effusion, pro-BNP >3000, ECHO 25%-30% (new), and she was transferred to [facility] for potential cardiac catheterization. TSH 19, normal [...] injection 5,000 Units, 5,000 Units, subcutaneous, q12h [facility], Ciarra Davis MD, 5,000 Units at 07/02/23 [...] tablet 80 mg, 80 mg, oral, q12h [facility], Alba Ralph MD, 80 mg at 07/02/23 [...] 07/02/23 0403 96/57 36.4 ???C (97.6 ???F) [facility] 83 15 98 % -- 07/02/23 0004 99/75 -- -- 72 12 100 % -- 07/01/23 2103 125/80 -- -- -- -- -- -- 07/01/23 1945 125/86 36.6 ???C (97.8 ???F) [facility] 93 21 -- -- 07/01/23 1612 104/67 [...] Value Ventricular Rate 89 Atrial Rate 89 NC Interval 140 QRS DURATION 134 QT Interval 430 QTC CALCULATION(BAZETT) 523 P Gantt 17 R-Gantt -43 T Wave Gantt 27 Impression Normal sinus rhythm Possible Left atrial enlargement Left axis deviation Left bundle branch block Abnormal ECG When compared with ECG of 29-JUN-2023 21:15, No significant change was found Confirmed by Tierra DURAN, BARBARA Amin ([id number]) on 06/30/2023 1:00:29 PM Lab Results Component Value Date TROPONINI 0.00 06/30/2023 Transthoracic echo (TTE) complete Result Date: 06/30/2023 1 1 [facility] [address] [address] (fa (more content not included)... [facility] 07-02-2023 Note Hospital Medicine Daily Progress Note - 07/02/2023 11:14 AM; Room: [address] [place] [address] Admission: 06/29/2023 6:41 PM; Length of stay: 3 days THE HOSPITALIST TEAM PREFERS TO USE [employer] CHAT FOR COMMUNICATION 7AM-7PM. IF I DO NOT RESPOND WITHIN 15 MINUTES, PLEASE PAGE ME/CALL THROUGH THE LIP CUTTER AND SCORER. FROM 7PM-7AM, PLEASE PAGE [phone](COVR) Code Status: Full Code Barriers to Discharge: [...] Problems Principal Problem: Acute systolic heart failure ([facility]) Assessment and Plan # New systolic congestive heart failure - Ejection fraction 25 to 30%, troponin within normal at [facility], with no EKG changes reported - BNP [...] Results from last 7 days Lab Units 06/29/239 WBC AUTO 10*3/uL 9.70 HEMOGLOBIN g/dL 13.5 [...] LDL 130 06/29/2023 No results found for: [id number] , IRON , TIBC , C3 , C4 , GERI , CANCA , ASO , PSA , CEA , CA125 , CA199 , AFP , CA153 Imaging Transthoracic echo (TTE) complete 1 1 [facility] [address] [place], [place] [id number] [phone] (fax) [facility]chocardiogram[facility] Name: LEANNE HIGGINS Study Date: 06/30/2023 01:00 PM B/P: 106 mmHg/74 mmHg HR: Date of : 1975 Location: [facility] Height: 64 in. Age: 48 year(s) Patient [...] abnormalities (see d (more content not included)... [facility] 07-01-2023 Note Hospital Medicine Daily Progress Note - 07/01/2023 12:13 PM; Room: 3184/3184-01 Admission: 06/29/2023 6:41 PM; Length of stay: 2 days THE HOSPITALIST TEAM PREFERS TO USE [employer] FOR COMMUNICATION 7AM-7PM. IF I DO NOT RESPOND WITHIN 15 MINUTES, PLEASE PAGE ME/CALL THROUGH THE LIP CUTTER AND SCORER. FROM 7PM-7AM, PLEASE PAGE [phone](COVR) Code Status: Full Code Barriers to Discharge: [...] Problems Principal Problem: Acute systolic heart failure (CMS/HCC) Assessment and Plan # New systolic congestive heart failure - Ejection fraction 25 to 30%, troponin within normal at [facility], with no EKG changes reported - BNP [...] last 7 days Lab Units 07/01/23 0545 06/29/23 2048 SODIUM mmol/L 136 136 POTASSIUM mmol/L 3.8 [...] LDL 130 06/29/2023 No results found for: [id number] , IRON , TIBC , C3 , C4 , GERI , CANCA , ASO , PSA , CEA , CA125 , CA199 , AFP , CA153 Imaging Transthoracic echo (TTE) complete 1 [facility] [address] [place] [address] [phone] (fax) Echocardiogram[facility] Name: LEANNE HIGGINS Study Date: 06/30/2023 01:00 PM B/P: 106 mmHg/74 mmHg HR: Date of : 1975 Location: [facility] Height: 64 in. Age: 48 year(s) Patient Room: [facility] Weight: 190 lb. Gender: Female Patient Status: [...] motion abnormalities (see (more content not included)... [facility] 07-01-2023 Note Nutrition Education Consult: Name: Leanne Higgins Room: [facility] Date: 1975 Date of Visit: 07/01/23 Admission Dx: Acute systolic heart failure (CMS/HCC) [I50.21] Consult: CHF diet education HF diet education provided by RD on 06/30/2023, please see full RD assessment. Contact the dietitian via [employer] chat 8A-4P Monday through Monday or call extension [phone]. For weekends & holidays, the dietitian can be reached via pager [phone] from 9A-3P. Unable to respond to [employer] chat messages on Monday & s. [facility] 07-01-2023 Note ---- Attestation signed by Isac [...] edema, which have all since improved. At [facility], CXR showed cardiac enlargement, CTA chest showed diffused ground glass with pleural effusion, pro-BNP >3000, ECHO 25%-30% (new), and she was transferred to [facility] for potential cardiac catheterization. TSH 19, normal [...] ECHO, and plan for likely cath on [place]. She is aware and agreeable to plan. [...] injection 5,000 Units, 5,000 Units, subcutaneous, q12h [facility], Ciarra Davis MD, 5,000 Units at 06/30/232109 levothyroxine (Synthroid, Levoxyl) tablet 50 mcg, 50 mcg, oral, Daily, Boaz Brooke MD, 50 mcg at 07/01/23 0552 metoprolol succinate XL (Toprol-XL) 24 hr tablet 25 mg, 25 mg, oral, Daily, Alba Ralhp MD sulfur hexafluoride microsphr (Lumason) injection 24.28 mg, 2 mL, intravenous, Once in imaging, Boaz Brooke MD valsartan (Diovan) tablet 80 mg, 80 mg, oral, q12h [facility], Alba Ralph MD Objective: Patient Vitals for [...] Value Ventricular Rate 89 Atrial Rate 89 NC Interval 140 QRS DURATION 134 QT Interval 430 QTC CALCULATION(BAZETT) 523 P Gantt 17 R-Gantt -43 T Wave Gantt 27 Impression Normal sinus rhythm Possible Left atrial enlargement Left axis deviation Left bundle branch block Abnormal ECG When compared with ECG of 29-JUN-2023 21:15, No sig (more content not included)... [facility] 06-30-2023 Note 06/30/23 1533 Referral Data Referral Source foster care worker Referral Reason Information Patient Information Primary Caregiver [...] to assist with any discharge planning needs. [facility] 06-30-2023 Note Adult Nutrition Asse ssment: Name: Leanne Higgins Date: 1975 Date of Visit: 06/30/23 Admission Dx: Acute systolic heart failure (CMS/HCC) [I50.21] Reason for assessment: high risk -HF [...] Academy of Nutrition and Dietetics, and the [place] [employer]al [employer] Parenteral Nutrition to [...] compliance w/ MNT Contact the dietitian via [employer] chat 8A-4P Monday through Monday or call extension [phone]. For weekends & holidays, the dietitian can be reached via pager [phone] from 9A-3P. Unable to respond to [employer] chat messages on Monday & hols. [facility] 06-30-2023 Note Hospital Medicine Daily Progress Note - 06/30/2023 12:21 PM; Room: [address] [place] [address] Admission: 06/29/2023 6:41 PM; Length of stay: 1 days THE HOSPITALIST TEAM PREFERS TO USE [employer] FOR COMMUNICATION 7AM-7PM. IF I DO NOT RESPOND WITHIN 15 MINUTES, PLEASE PAGE ME/CALL THROUGH THE [employer]IP CUTTER [employer] SCORER. FROM 7PM-7AM, PLEASE PAGE [phone](COVR) Code Status: Full Code Barriers to Discharge: [...] Problems Principal Problem: Acute systolic heart failure (CMS/[facility]) Assessment and Plan # New systolic congestive heart failure - Ejection fraction 25 to 30%, troponin within normal at [facility], with no EKG changes reported - BNP [...] from last 7 days Lab Units 06/29/232047 SODIUM mmol/L 136 POTASSIUM mmol/L 3.9 CHLORIDE [...] LDL 130 06/29/2023 No results found for: [id number] , IRON , TIBC , C3 , [...] Brooke MD Hospital Medicine 06/30/2023 12:21 PM [facility] 06-30-2023 Note 06/30/23 1018 Admission Assessment Questions Verify insurance with patient Yes (sadiq cary/KEN working case for medicaid) Do you understand [...] Discharge? Yes Does the patient have a child support case officer assigned to them through their insurance? No [...] to send link and activate MyChart? Yes [facility] 06-29-2023 Note Hospital Medicine History and Physical 06/29/2023 8:02 PM THE HOSPITALIST TEAM PREFERS TO USE [employer] FOR COMMUNICATION 7AM-7PM. IF I DO NOT RESPOND WITHIN 15 MINUTES, PLEASE PAGE ME/CALL THROUGH THE LIP CUTTER [employer] SCORER. FROM 7PM-7AM, PLEASE PAGE [phone](COVR) Chief Complaint Shortness on breath History of Present Illness Leanne Higgins is an 48 y.o. female who came from home with SOB, patient with no significant past medical history, she presented to [facility] yesterday with worsening cough and shortness of [...] team asked to transfer the patient to [facility] for cardiac cath. At time of the arrival to [facility], patient was sitting on the bed, on [...] Diagnosis Date Noted Acute systolic heart failure ([facility]) 06/29/2023 Assessment and Plan # New systolic congestive heart failure - Ejection fraction 25 to 30%, troponin within normal at [facility], with no EKG changes reportedly -Any clear [...] this hospital stay by a member of [facility]. Past Medical History No past medical [...] Substance and Se (more content not included)... [facility] Evaluation note [facility] information [facility]: Summary Purpose Family History No Family History Records Found Relationship Condition Age at Onset Recorded Date/T riaz father Diabetes mellitus Unknown Heart disease Unknown High blood cholesterol Unknown Myocardial infarction Unknown Advance Directives No Advanced Directives Records Found Advance Directive Response Recorded Date/ Time Advance Directives No June 28, 2023 10:23am Chief Complaint and Reason for Visit Chief Complaint Sore Throat Additional Source Comments INFORMATION SOURCE (unrecogn ized section and content) DATE CREATED AUTHOR [facility] DATE CREATED AUTHOR AUTHOR'S ORGANIZ ATION 08/16/2017 [facility] DATE CREATED AUTHOR AUTHOR'S ORGANIZ ATION 06/08/2018 [facility] DATE CREATED AUTHOR AUTHOR'S ARCELIA ATION 01/12/2024 [facility] Care Teams (unrecognized sec tion and content) Facility Environmental Technician Relationship Specialty Start Date End Date Kathy Bruce MD [address] [place] [address] PCP - General Family Medicine 03/22/17 Facility Environmental Technician Relationship Specialty Start Date End Date Kathy Bruce MD [address] [place] [address] PCP - General Family Medicine 03/22/17 Facility Environmental Technician Relationship Specialty Start Date End Date Kathy Bruce MD [address] [place] [address] PCP - General Family Medicine 03/22/17 Team Status: Active Member Role Status Dates Kathy Bruce MD Primary Care Provider Active Team Status: Active Member Role Status Dates Kathy Bruce MD Primary Care Provide r, Attending Provider Active Start: October 27, 2023 Team Status: Inactive Member Role Status Dates Kathy Bruce MD Primary Care Provide r, Attending Provider Active Start: December 12, 2023 End: December 12, 2023 Goals (unrecognized section and content) Goals may be documented in a n alternate section FOR RECORDS PERTAINING TO PATIENTS WHO ARE [...] BE BASED ON THE PRIMARY CLINICAL RECORDS. [employer] provides no warranty or guarantee of the accuracy or completeness of information in this document.
--- NOTE | 2024-03-25 12:57 | CA_ITS ---
Patient Name: LEANNE GLEASON MR#: [id number] : 1975 Exam Date: 03/25/2024 Ordering Doctor: DR PRADEEP PARRA M.D. ECHOCARDIOGRAM REPORT PROCEDURE: CA ECHO DOPPLER COMPLETE INDICATIONS: Nonischemic cardiomyopathy COMPARISON: None. DESCRIPTION: COMPLETE ECHOCARDIOGRAM Real-time transthoracic echocardiography with 2D, M-mode, spectral and color flow Doppler performed. QUALITY: Technical quality was good. LEFT VENTRICLE: Normal chamber size. Borderline concentric left ventricular hypertrophy. Global left ventricular systolic function is mildly decreased. The septum is abnormal and motion likely related to bundle branch block. LV EF: Visual estimation of left ventricular ejection fraction is 40-45%. DIASTOLIC: ATRIAL SEPTUM: LEFT ATRIUM: Mild dilatation. RIGHT ATRIUM: Mild dilatation. RIGHT VENTRICLE: Normal chamber size. Normal right ventricular systolic function. TRICUSPID VALVE: Normal mobility and thickness. No stenosis with mild to moderate regurgitation. No evidence of pulmonary hypertension. RVSP 33 mmHg MITRAL VALVE: Normal mobility and thickness. No evidence of mitral valve stenosis. There is no mitral annular calcification. Mild mitral regurgitation. AORTIC VALVE: Normal trileaflet appearance. No visible sclerosis. Normal leaflet mobility. Doppler velocity suggest no aortic valve stenosis. Trivial aortic regurgitation. AORTIC ROOT: Normal diameter and appearance. PULMONIC VALVE: Normal thickness and mobility. No stenosis. Trivial regurgitation. PERICARDIUM: No evidence of pericardial effusion. IVC: Collapses with inspirations. Normal size. PLEURA: CONCLUSION: 1. Borderline concentric left ventricular hypertrophy with global hypokinesis and mildly reduced systolic function. LVEF is estimated at 40-45%. 2. Normal right ventricular size and systolic function. 3. Mild biatrial dilatation. 4. Mild mitral regurgitation. 5. Mild to moderate tricuspid regurgitation. 6. Normal right-sided pressures. Adult Echocardiography Procedure Report Left Ventricle LVEDD (3.7 - 5.6 cm): 5.05 cm LVESD (2.2 - 4.0 cm): 4.15 cm LVIVS thickness (0.6 - 1.2 cm): 1.14 cm LVPW thickness (0.5 - 1.0 cm): 1.08 cm e': 0.08 m/s E - e': 6.89 LVOT Max Gradient: 3.23 mm[Hg], 2.76 mm[Hg] LVOT Area (cm2): 0.86 m/s Peak Velocity (LVOT): 0.90 m/s, 0.83 m/s Mean Velocity (LVOT): 0.62 m/s LVOT Diameter 1.66 cm Left Ventricular Ejection Fraction: 40-45 % Left Atrium LA Volume Index (2D A2C): 41.20 ml/m2 Left Atrium Systolic Dimension: 3.32 cm Mitral Valve MV E to A Ratio: 0.63 Mitral Valve A-Wave Peak Velocity: 0.87 m/s Mitral Valve E-Wave Peak Velocity: 0.55 m/s Right Ventricle RV Internal Diastolic Dimension: 2.88 cm Aorta AO Root Diam: 2.89 cm Ascending Ao Diam: 2.73 cm Aortic Valve AoV Area (Peak Agustín): 0.99 cm2, 0.99 cm2, 0.99 cm2 AoV Area (VTI): 1.09 cm2, 1.13 cm2, 1.04 cm2 Peak Velocity(Antegrade Flow): 1.97 m/s, 1.81 m/s Peak Gradient(Antegrade Flow): 15.45 mm[Hg], 13.14 mm[Hg] Mean Velocity(Antegrade Flow): 1.27 m/s, 1.16 m/s Mean Gradient(Antegrade Flow): 7.56 mm[Hg], 6.23 mm[Hg] Velocity Time Integral: 39.25 cm, 37.42 cm Tricuspid Valve Peak Velocity (Regurgitant Flow): 2.47 m/s, 2.71 m/s, 2.28 m/s, 2.74 m/s Pulmonic Valve Mean Gradient: 2.67 mm[Hg], 2.28 mm[Hg] Mean Velocity: 0.75 m/s, 0.70 m/s Peak Velocity: 1.16 m/s Peak Gradient: 6.00 mm[Hg], 4.74 mm[Hg] Right Atrium Right Atrium Systolic Pressure: 38.12 ml, 38.12 ml Dictated by: Bharath Palumbo M.D. on 03/25/2024 at 17:45 Approved by: Bharath Palumbo M.D. on 03/25/2024 at 17:52
== END 2024-03-25 12:43 | disposition home or self-care (01) ==
LOC: CARD 12:42
PROVIDERS: PCP Family Medicine; Visit Provider Internal Medicine Interventional Cardiology
DX: I42.8 Other cardiomyopathies (principal)
CPT/HCPCS: 93306; 93356

== ENCOUNTER 2024-05-17 14:47 | Outpatient (OUT) | payer SELFPAY ==
[2024-05-17 15:40] LABS: Free T4 1.02 ng/dL (0.76-1.46)
[2024-05-17 15:44] LABS: Thyroid Stimulating Hormone 1.853 uIU/mL (0.358-3.740)
== END 2024-05-17 14:48 | disposition home or self-care (01) ==
LOC: LAB 14:48
PROVIDERS: PCP Family Medicine; Visit Provider Family Medicine
DX: Z00.00 Encounter for general adult medical examination without abnormal findings (principal); E03.9 Hypothyroidism, unspecified
CPT/HCPCS: 36415; 84439; 84443